=== PATIENT | female | born 1950 | race American Indian/Alaskan Native ===

== ENCOUNTER 2016-05-08 15:41 | Emergency (ER) | payer MEDICAID, MEDICARE ==
[~2016-05-08 15:41] MED LIST: ACET65TA OR; ASPI1TAB PO; ASPI81TA3 OR; ATOR1TAB18 PO; CALCCHW12 OR; CALCIUM/VIT D PO; CALCTAB68 PO; FURO20TA2 PO; HUMULIN N SC; INSULANT SC; LASI20TA PO; LEVA750T PO; LEVOSTATIN PO; LYRI75CA PO; METO25TA74 PO; NABU50TA PO; NITR4TASL SL; RAMI25CA PO; TYLE500T53 PO; VITAMIN C PO; VITMTA PO
--- NOTE | 2016-05-08 19:06 | EDDOCDS ---
Physician Documentation [facility] Name: Tigist Croft Age: 65 yrs Sex: Female : 1950 Arrival Date: 05/08/2016 Time: 15:41 Bed 20 Private MD: Ayaan Kirby Disposition: 05/08/16 18:36 Discharged to Home/Self Care. Impression: Hypoglycemia, unspecified. - Condition is Stable. - Discharge Instructions: Hypoglycemia. - Medication Reconciliation, Local Pharmacy Hours form. - Follow up: Ayaan Kirby MD; When: 2 - 3 days; Reason: Recheck today's complaints, Continuance of care. - Problem is an acute exacerbation. - Symptoms are resolved. Historical: - Allergies: no known allergies; - Home Meds: 1. aspirin 81 mg Oral TbEC 1 tab once daily 2. atorvastatin 80 mg oral tab 1 tab once daily 3. Calcarb 600 With Vitamin D 600 mg(1,500mg) -200 unit Oral tab twice a day 4. Lantus 12 units Sub-Q soln daily (Last dose: 05/08/2016 06:00) 5. Lasix 20 mg Oral tab as needed (Last dose: 05/01/2016) 6. multivitamin Oral cap 1 tab daily 7. nabumetone 500 mg oral tab 1 tab 2 times per day 8. ramipril 2.5 mg Oral cap 1 cap once daily 9. Toprol XL 25 mg Oral Tb24 1 tab once daily 10. gabapentin 100 mg Oral tab three times a day - PMHx: CAD; Diabetes - IDDM: controlled; Diabetic Neuropathy; Hypercholesterolemia; Hypertension; - PSHx: CABG (2001); Carpal Tunnel Repair- Bilateral; Tubal ligation; - Social history: Smoking status: Patient states former smoker of tobacco. No barriers to communication noted. - Family history: Not pertinent. - : The pt / caregiver states he / she is not on anticoagulants. Home medication list is obtained from the patient, [employer] import data. - Exposure Risk Screening:: None identified. Vital Signs: 05/08 16:13 BP 142 / 65; Pulse 61; Resp 16; Temp 97.8; Pulse Ox 99% ; Weight 45.81 kg / 100.99 lbs; [facility] Height 4 ft. 9 in. (144.78 cm); Pain 0/10; 18:50 BP 107 / 56; Pulse 69; Resp 16; Temp 98.2(TE); Pulse Ox 93% on R/A; Pain 0/10; dem1 16:13 Body Mass Index 21.86 (45.81 kg, 144.78 cm) [facility] MDM: 16:03 Fingerstick Blood Sugar Ordered. EDMS 16:17 Accucheck hourly ordered. ke 16:17 Fingerstick Blood Sugar Reviewed. ke 16:18 REGULAR+DIET ordered. EDMS 18:14 Financial registration complete. gjb 18:31 Fingerstick Blood Sugar Ordered. EDMS 18:36 [facility] Payment Agreement was scanned into [employer] and attached to record. [facility] Point of Care Testing: Blood Glucose: 16:17 Blood Glucose: 151 mg/dL; [facility] 18:23 Blood Glucose: 186 mg/dL; [facility] Ranges: Signatures: Dispatcher [employer] [facility] Erwin Shaikh, CHRISTIAN SCIENCE READER Adina LayRN RN [facility] Charlene Johnson The chart was reviewed and I authenticate all verbal orders and agree with the evaluation and treatment provided.Attachments: 18:36 [facility] Payment Agreement gj [employer]
--- NOTE | 2016-05-08 19:06 | EDDOCDS ---
Nurse's Notes [facility] Name: Tigist Croft Age: 65 yrs Sex: Female : 1950 Arrival Date: 05/08/2016 Time: 15:41 Bed 20 Private MD: Ayaan Kirby Diagnosis: Hypoglycemia, unspecified Presentation: 05/08 16:06 Presenting complaint: Patient states: called EMS finding her on kitchen floor [facility] where she states she was trying to get some lunch, takes insulin in early AM. EMS found her to have altered mentation, glucose 64, gave oral glucose then repeat was 38. After one amp of D50 it was 164 and patient mentation has improved. Adult Sepsis Screening: The patient does not have new or worsening altered mentation. Patient's respiratory rate is less than 22. Systolic blood pressure is greater than 100. Patient has a qSOFA score of 0- Negative Sepsis Screen. Suicide/Homicide risk assessment- the patient denies having any suicidal and/or homicidal ideations and does not present with any other emotional, behavioral or mental health complaints. Status: Patient is not a director of rehabilitative services or dependent. Transition of care: patient was not received from another setting of care. Care prior to arrival: Medications administered prior to arrival: D50, oral glucose Saline lock initiated. 16:06 Acuity: ALISA Level 3 [facility] 16:06 Method Of Arrival: Ambulance [facility] Triage Assessment: 16:13 General: Appears in no apparent distress, comfortable, Behavior is appropriate for age, [facility] cooperative. Pain: Denies pain. HIV screening NA for this visit Offered previously. The patient is triaged at the bedside. See Assessment in Nurses Notes section of ED record. Neurological: Level of Consciousness is awake, alert, Oriented to person, place, time. Respiratory: Airway is patent Respiratory effort is even, unlabored, Respiratory pattern is regular, symmetrical, Breath sounds are clear bilaterally. Derm: Skin is pink, warm & dry. Musculoskeletal: Range of motion intact in all extremities. Historical: - Allergies: no known allergies; - Home Meds: 1. aspirin 81 mg Oral TbEC 1 tab once daily 2. atorvastatin 80 mg oral tab 1 tab once daily 3. Calcarb 600 With Vitamin D 600 mg(1,500mg) -200 unit Oral tab twice a day 4. Lantus 12 units Sub-Q soln daily (Last dose: 05/08/2016 06:00) 5. Lasix 20 mg Oral tab as needed (Last dose: 05/01/2016) 6. multivitamin Oral cap 1 tab daily 7. nabumetone 500 mg oral tab 1 tab 2 times per day 8. ramipril 2.5 mg Oral cap 1 cap once daily 9. Toprol XL 25 mg Oral Tb24 1 tab once daily 10. gabapentin 100 mg Oral tab three times a day - PMHx: CAD; Diabetes - IDDM: controlled; Diabetic Neuropathy; Hypercholesterolemia; Hypertension; - PSHx: CABG (2001); Carpal Tunnel Repair- Bilateral; Tubal ligation; - Social history: Smoking status: Patient states former smoker of tobacco. No barriers to communication noted. - Family history: Not pertinent. - : The pt / caregiver states he / she is not on anticoagulants. Home medication list is obtained from the patient, [employer] import data. - Exposure Risk Screening:: None identified. Screenin:15 Screening information is obtained from the patient. Fall risk: No risks identified. [facility] Assistance ADL's: requires no assistance with activities of daily living. Abuse/DV Screen: The patient / caregiver reports he/she is: not in a situation that causes fear, pain or injury. Nutritional screening: No deficits noted. Advance Directives: Currently, there is a health care proxy, Patricia Bentley, sister. There is no active DNR order. There is no living will. There is no Power of Traffic Recorder. home support is adequate. Assessment: 16:15 General: see bedside triage assessment. Warm blankets provided, SIEVE REPAIRER at bedside for [facility] evaluation. 17:30 General: boxed lunch provided, ambulated to bathroom with assist of one, gait steady, [facility] patient reports utilizing cane at home. 18:15 General: denies needs, states anxious to go home, visitor at bedside. [facility] 19:03 General: reviewed discharge instructions with patient who states she just wants to [facility] leave and states she knows whatever she needs to know about hypoglycemia. encouraged patient to return here for any needs and to follow up appropriately, denies further needs. Vital Signs: 16:13 BP 142 / 65; Pulse 61; Resp 16; Temp 97.8; Pulse Ox 99% ; Weight 45.81 kg; Height 4 ft. [facility] 9 in. (144.78 cm); Pain 0/10; 18:50 BP 107 / 56; Pulse 69; Resp 16; Temp 98.2(TE); Pulse Ox 93% on R/A; Pain 0/10; dem1 16:13 Body Mass Index 21.86 (45.81 kg, 144.78 cm) [facility] Vitals: 16:13 Log In Time N/A - ambulance arrival. [facility] ED Course: 15:43 Patient visited by Judi Amaro, Cook Chill Technician. lbd 15:43 Ayaan Kirby MD is Private Physician. lbd 15:43 Patient moved to Waiting lbd 15:44 Patient moved to 20 lbd 16:10 Erwin Shaikh FNP is [facility]. ke 16:10 Patient visited by Erwin Shaikh FNP. ke 16:10 Patient visited by Erwin Shaikh FNP. ke 16:11 Triage Initiated [facility] 16:15 The patient / caregiver is instructed regarding the plan of care and ED course. Patient [facility] has correct armband on for positive identification. Placed in gown. Bed in low position. Call light in reach. Side rails up X2. front desk monitor on. Pulse ox on. NIBP on. 16:15 Maintain field IV. Gauge & site: 20 gauge, left antecubital. cj 16:33 Patient visited by Erwin Shaikh FNP. ke 17:08 Patient visited by Erwin Shaikh FNP. ke 17:44 Patient visited by Erwin Shaikh FNP. ke 18:02 Diet: Patient given regular meal. ct3 18:03 Patient visited by Estela Steele, KRYSTA. ct3 18:34 Patient visited by Erwin Shaikh FNP. ke 18:35 Ayaan Kirby MD is Referral Physician. ke 18:36 [facility] Payment Agreement was scanned into [employer] and attached to record. gjb 18:51 Patient visited by Taj Huerta. dem1 19:03 Discontinued lock intact, bleeding controlled, pressure dressing applied, No [facility] redness/swelling at site. No procedures done that require assistance. Point of Care Testing: Blood Glucose: 16:17 Blood Glucose: 151 mg/dL; cj 18:23 Blood Glucose: 186 mg/dL; [facility] Ranges: Order Results: Lab Order: Fingerstick Blood Sugar; SPEC'M 05/08/16 15:54 Test: BEDSIDE GLUCOSE; Value: 151; Range: 80-115; Abnormal: Above high normal; Units: MG/DL; Status: F Lab Order: Fingerstick Blood Sugar; SPEC'M 05/08/16 16:53 Test: BEDSIDE GLUCOSE; Value: 136; Range: 80-115; Abnormal: Above high normal; Units: MG/DL; Status: F Lab Order: Fingerstick Blood Sugar; SPEC'M 05/08/16 18:22 Test: BEDSIDE GLUCOSE; Value: 186; Range: 80-115; Abnormal: Above high normal; Units: MG/DL; Status: F Outcome: 18:36 Discharge ordered by Provider. eusebio 19:03 Discharge Assessment: Patient awake, alert and oriented x 3. No cognitive and/or [facility] functional deficits noted. Patient verbalized understanding of disposition instructions. patient administered narcotics - no. The following High Risk Discharge criteria are identified: None. Discharged to home ambulatory. Condition: good Condition: stable Condition: improved. Discharge instructions given to patient, Instructed on discharge instructions, follow up and referral plans. medication usage, Demonstrated understanding of instructions, Pt was receptive of discharge instructions/ teaching. No special radiology studies were completed. Property :Personal belongings accompany Pt. 19:05 Patient left the ED. [facility] Signatures: Judi Amaro, Cook Chill Technician Unit lbd Erwin Shaikh, PROFESSOR OF GENETICS PROFESSOR OF GENETICS Estela Alexander, CHEMICAL MAKER CHEMICAL MAKER ct3 Taj Huerta dem1 Adina Baires,DERIK RN [facility] Charlene Johnson MTDD
--- NOTE | 2016-05-10 20:06 | EDDOCDS ---
Physician Documentation [facility] Name: Tigist Croft Age: 65 yrs Sex: Female : 1950 Arrival Date: 05/08/2016 Time: 15:41 Bed 20 Private MD: Ayaan Kirby Disposition: 05/08/16 18:36 Discharged to Home/Self Care. Impression: Hypoglycemia, unspecified. - Condition is Stable. - Discharge Instructions: Hypoglycemia. - Medication Reconciliation, Local Pharmacy Hours form. - Follow up: Ayaan Kirby MD; When: 2 - 3 days; Reason: Recheck today's complaints, Continuance of care. - Problem is an acute exacerbation. - Symptoms are resolved. Historical: - Allergies: no known allergies; - Home Meds: 1. aspirin 81 mg Oral TbEC 1 tab once daily 2. atorvastatin 80 mg oral tab 1 tab once daily 3. Calcarb 600 With Vitamin D 600 mg(1,500mg) -200 unit Oral tab twice a day 4. Lantus 12 units Sub-Q soln daily (Last dose: 05/08/2016 06:00) 5. Lasix 20 mg Oral tab as needed (Last dose: 05/01/2016) 6. multivitamin Oral cap 1 tab daily 7. nabumetone 500 mg oral tab 1 tab 2 times per day 8. ramipril 2.5 mg Oral cap 1 cap once daily 9. Toprol XL 25 mg Oral Tb24 1 tab once daily 10. gabapentin 100 mg Oral tab three times a day - PMHx: CAD; Diabetes - IDDM: controlled; Diabetic Neuropathy; Hypercholesterolemia; Hypertension; - PSHx: CABG (2001); Carpal Tunnel Repair- Bilateral; Tubal ligation; - Social history: Smoking status: Patient states former smoker of tobacco. No barriers to communication noted. - Family history: Not pertinent. - : The pt / caregiver states he / she is not on anticoagulants. Home medication list is obtained from the patient, [employer] import data. - Exposure Risk Screening:: None identified. Vital Signs: 05/08 16:13 BP 142 / 65; Pulse 61; Resp 16; Temp 97.8; Pulse Ox 99% ; Weight 45.81 kg / 100.99 lbs; [facility] Height 4 ft. 9 in. (144.78 cm); Pain 0/10; 18:50 BP 107 / 56; Pulse 69; Resp 16; Temp 98.2(TE); Pulse Ox 93% on R/A; Pain 0/10; dem1 16:13 Body Mass Index 21.86 (45.81 kg, 144.78 cm) [facility] MDM: 16:03 Fingerstick Blood Sugar Ordered. EDMS 16:17 Accucheck hourly ordered. ke 16:17 Fingerstick Blood Sugar Reviewed. 16:18 REGULAR+DIET ordered. EDMS 18:14 Financial registration complete. [facility] 18:31 Fingerstick Blood Sugar Ordered. EDMS 18:36 [facility] Payment Agreement was scanned into [employer] and attached to record. [facility] 05/09 11:04 T-Sheet-- Draft Copy was scanned into [employer] and attached to record. Point of Care Testing: Blood Glucose: 05/08 16:17 Blood Glucose: 151 mg/dL; [facility] 18:23 Blood Glucose: 186 mg/dL; [facility] Ranges: Signatures: Dispatcher [employer] [facility] Sasha Bowens, Reg Reg Erwin Patel, INDUSTRIAL ROOF PLUMBER INDUSTRIAL ROOF PLUMBER Adina Hairston,RN RN [facility] Charlene Johnson The chart was reviewed and I authenticate all verbal orders and agree with the evaluation and treatment provided.Attachments: 18:36 [facility] Payment Agreement [facility] 05/09 11:04 T-Sheet-- Draft Copy gb Chart Complete MTDD
--- NOTE | 2016-05-10 20:06 | EDDOCDS ---
Nurse's Notes [facility] Name: Tigist Croft Age: 65 yrs Sex: Female : 1950 Arrival Date: 05/08/2016 Time: 15:41 Bed 20 Private MD: Ayaan Kirby Diagnosis: Hypoglycemia, unspecified Presentation: 05/08 16:06 Presenting complaint: Patient states: called EMS finding her on kitchen floor [facility] where she states she was trying to get some lunch, takes insulin in early AM. EMS found her to have altered mentation, glucose 64, gave oral glucose then repeat was 38. After one amp of D50 it was 164 and patient mentation has improved. Adult Sepsis Screening: The patient does not have new or worsening altered mentation. Patient's respiratory rate is less than 22. Systolic blood pressure is greater than 100. Patient has a qSOFA score of 0- Negative Sepsis Screen. Suicide/Homicide risk assessment- the patient denies having any suicidal and/or homicidal ideations and does not present with any other emotional, behavioral or mental health complaints. Status: Patient is not a multimedia services manager or dependent. Transition of care: patient was not received from another setting of care. Care prior to arrival: Medications administered prior to arrival: D50, oral glucose Saline lock initiated. 16:06 Acuity: ALISA Level 3 [facility] 16:06 Method Of Arrival: Ambulance [facility] Triage Assessment: 16:13 General: Appears in no apparent distress, comfortable, Behavior is appropriate for age, [facility] cooperative. Pain: Denies pain. HIV screening NA for this visit Offered previously. The patient is triaged at the bedside. See Assessment in Nurses Notes section of ED record. Neurological: Level of Consciousness is awake, alert, Oriented to person, place, time. Respiratory: Airway is patent Respiratory effort is even, unlabored, Respiratory pattern is regular, symmetrical, Breath sounds are clear bilaterally. Derm: Skin is pink, warm & dry. Musculoskeletal: Range of motion intact in all extremities. Historical: - Allergies: no known allergies; - Home Meds: 1. aspirin 81 mg Oral TbEC 1 tab once daily 2. atorvastatin 80 mg oral tab 1 tab once daily 3. Calcarb 600 With Vitamin D 600 mg(1,500mg) -200 unit Oral tab twice a day 4. Lantus 12 units Sub-Q soln daily (Last dose: 05/08/2016 06:00) 5. Lasix 20 mg Oral tab as needed (Last dose: 05/01/2016) 6. multivitamin Oral cap 1 tab daily 7. nabumetone 500 mg oral tab 1 tab 2 times per day 8. ramipril 2.5 mg Oral cap 1 cap once daily 9. Toprol XL 25 mg Oral Tb24 1 tab once daily 10. gabapentin 100 mg Oral tab three times a day - PMHx: CAD; Diabetes - IDDM: controlled; Diabetic Neuropathy; Hypercholesterolemia; Hypertension; - PSHx: CABG (2001); Carpal Tunnel Repair- Bilateral; Tubal ligation; - Social history: Smoking status: Patient states former smoker of tobacco. No barriers to communication noted. - Family history: Not pertinent. - : The pt / caregiver states he / she is not on anticoagulants. Home medication list is obtained from the patient, [employer] import data. - Exposure Risk Screening:: None identified. Screenin:15 Screening information is obtained from the patient. Fall risk: No risks identified. [facility] Assistance ADL's: requires no assistance with activities of daily living. Abuse/DV Screen: The patient / caregiver reports he/she is: not in a situation that causes fear, pain or injury. Nutritional screening: No deficits noted. Advance Directives: Currently, there is a health care proxy, Patricia Bentley, sister. There is no active DNR order. There is no living will. There is no Power of Music Education Adjunct Professor. home support is adequate. Assessment: 16:15 General: see bedside triage assessment. Warm blankets provided, MIXING SUPERVISOR at bedside for [facility] evaluation. 17:30 General: boxed lunch provided, ambulated to bathroom with assist of one, gait steady, [facility] patient reports utilizing cane at home. 18:15 General: denies needs, states anxious to go home, visitor at bedside. [facility] 19:03 General: reviewed discharge instructions with patient who states she just wants to [facility] leave and states she knows whatever she needs to know about hypoglycemia. encouraged patient to return here for any needs and to follow up appropriately, denies further needs. Vital Signs: 16:13 BP 142 / 65; Pulse 61; Resp 16; Temp 97.8; Pulse Ox 99% ; Weight 45.81 kg; Height 4 ft. [facility] 9 in. (144.78 cm); Pain 0/10; 18:50 BP 107 / 56; Pulse 69; Resp 16; Temp 98.2(TE); Pulse Ox 93% on R/A; Pain 0/10; dem1 16:13 Body Mass Index 21.86 (45.81 kg, 144.78 cm) [facility] Vitals: 16:13 Log In Time N/A - ambulance arrival. [facility] ED Course: 15:43 Patient visited by Judi Amaro, Black Leather Buffer. lbd 15:43 Ayaan Kirby MD is Private Physician. lbd 15:43 Patient moved to Waiting lbd 15:44 Patient moved to 20 lbd 16:10 Erwin Shaikh FNP is [facility]. ke 16:10 Patient visited by Erwin Shaikh FNP. ke 16:10 Patient visited by Erwin Shaikh FNP. ke 16:11 Triage Initiated [facility] 16:15 The patient / caregiver is instructed regarding the plan of care and ED course. Patient [facility] has correct armband on for positive identification. Placed in gown. Bed in low position. Call light in reach. Side rails up X2. bus driver/monitor on. Pulse ox on. NIBP on. 16:15 Maintain field IV. Gauge & site: 20 gauge, left antecubital. cj 16:33 Patient visited by Erwin Shaikh FNP. ke 17:08 Patient visited by Erwin Shaikh FNP. ke 17:44 Patient visited by Erwin Shaikh FNP. ke 18:02 Diet: Patient given regular meal. ct3 18:03 Patient visited by Estela Steele, KRYSTA. ct3 18:34 Patient visited by Erwin Shaikh FNP. ke 18:35 Ayaan Kirby MD is Referral Physician. ke 18:36 [facility] Payment Agreement was scanned into [employer] and attached to record. gjb 18:51 Patient visited by Taj Huerta. dem1 19:03 Discontinued lock intact, bleeding controlled, pressure dressing applied, No [facility] redness/swelling at site. No procedures done that require assistance. 05/09 11:04 T-Sheet-- Draft Copy was scanned into [employer] and attached to record. Point of Care Testing: Blood Glucose: 01/17 16:17 Blood Glucose: 151 mg/dL; [facility] 18:23 Blood Glucose: 186 mg/dL; [facility] Ranges: Order Results: Lab Order: Fingerstick Blood Sugar; SPEC'M 05/08/16 15:54 Test: BEDSIDE GLUCOSE; Value: 151; Range: 80-115; Abnormal: Above high normal; Units: MG/DL; Status: F Lab Order: Fingerstick Blood Sugar; SPEC'M 05/08/16 16:53 Test: BEDSIDE GLUCOSE; Value: 136; Range: 80-115; Abnormal: Above high normal; Units: MG/DL; Status: F Lab Order: Fingerstick Blood Sugar; SPEC'M 05/08/16 18:22 Test: BEDSIDE GLUCOSE; Value: 186; Range: 80-115; Abnormal: Above high normal; Units: MG/DL; Status: F Outcome: 18:36 Discharge ordered by Provider. 19:03 Discharge Assessment: Patient awake, alert and oriented x 3. No cognitive and/or [facility] functional deficits noted. Patient verbalized understanding of disposition instructions. patient administered narcotics - no. The following High Risk Discharge criteria are identified: None. Discharged to home ambulatory. Condition: good Condition: stable Condition: improved. Discharge instructions given to patient, Instructed on discharge instructions, follow up and referral plans. medication usage, Demonstrated understanding of instructions, Pt was receptive of discharge instructions/ teaching. No special radiology studies were completed. Property :Personal belongings accompany Pt. 19:05 Patient left the ED. [facility] Signatures: Judi Amaro, Black Leather Buffer Unit lbd Sasha Bowens, Pardeep Reg gb Erwin Shaikh, INFORMATION SYSTEMS MANAGER INFORMATION SYSTEMS MANAGER Estela Alexander, UPHOLSTERER OUTSIDE UPHOLSTERER OUTSIDE ct3 Taj Huerta dem1 Adina Baires,DERIK RN [facility] Charlene Johnson Chart Complete MTDD
--- NOTE | 2016-05-10 20:06 | EDDOCDS ---
Physician Documentation [facility] Name: Tigist Croft Age: 65 yrs Sex: Female : 1950 Arrival Date: 05/08/2016 Time: 15:41 Bed 20 Private MD: Ayaan Kirby Disposition: 05/08/16 18:36 Discharged to Home/Self Care. Impression: Hypoglycemia, unspecified. - Condition is Stable. - Discharge Instructions: Hypoglycemia. - Medication Reconciliation, Local Pharmacy Hours form. - Follow up: Ayaan Kirby MD; When: 2 - 3 days; Reason: Recheck today's complaints, Continuance of care. - Problem is an acute exacerbation. - Symptoms are resolved. Historical: - Allergies: no known allergies; - Home Meds: 1. aspirin 81 mg Oral TbEC 1 tab once daily 2. atorvastatin 80 mg oral tab 1 tab once daily 3. Calcarb 600 With Vitamin D 600 mg(1,500mg) -200 unit Oral tab twice a day 4. Lantus 12 units Sub-Q soln daily (Last dose: 05/08/2016 06:00) 5. Lasix 20 mg Oral tab as needed (Last dose: 05/01/2016) 6. multivitamin Oral cap 1 tab daily 7. nabumetone 500 mg oral tab 1 tab 2 times per day 8. ramipril 2.5 mg Oral cap 1 cap once daily 9. Toprol XL 25 mg Oral Tb24 1 tab once daily 10. gabapentin 100 mg Oral tab three times a day - PMHx: CAD; Diabetes - IDDM: controlled; Diabetic Neuropathy; Hypercholesterolemia; Hypertension; - PSHx: CABG (2001); Carpal Tunnel Repair- Bilateral; Tubal ligation; - Social history: Smoking status: Patient states former smoker of tobacco. No barriers to communication noted. - Family history: Not pertinent. - : The pt / caregiver states he / she is not on anticoagulants. Home medication list is obtained from the patient, [employer] import data. - Exposure Risk Screening:: None identified. Vital Signs: 05/08 16:13 BP 142 / 65; Pulse 61; Resp 16; Temp 97.8; Pulse Ox 99% ; Weight 45.81 kg / 100.99 lbs; [facility] Height 4 ft. 9 in. (144.78 cm); Pain 0/10; 18:50 BP 107 / 56; Pulse 69; Resp 16; Temp 98.2(TE); Pulse Ox 93% on R/A; Pain 0/10; dem1 16:13 Body Mass Index 21.86 (45.81 kg, 144.78 cm) [facility] MDM: 16:03 Fingerstick Blood Sugar Ordered. EDMS 16:17 Accucheck hourly ordered. ke 16:17 Fingerstick Blood Sugar Reviewed. 16:18 REGULAR+DIET ordered. EDMS 18:14 Financial registration complete. [facility] 18:31 Fingerstick Blood Sugar Ordered. EDMS 18:36 [facility] Payment Agreement was scanned into [employer] and attached to record. [facility] 05/09 11:04 T-Sheet-- Draft Copy was scanned into [employer] and attached to record. Point of Care Testing: Blood Glucose: 05/08 16:17 Blood Glucose: 151 mg/dL; [facility] 18:23 Blood Glucose: 186 mg/dL; [facility] Ranges: Signatures: Dispatcher [employer] [facility] Sasha Bowens, Reg Reg Erwin Patel, SCIENTIFIC INVESTIGATOR SCIENTIFIC INVESTIGATOR Adina Hairston,RN RN [facility] Charlene Johnson The chart was reviewed and I authenticate all verbal orders and agree with the evaluation and treatment provided.Attachments: 18:36 [facility] Payment Agreement [facility] 05/09 11:04 T-Sheet-- Draft Copy gb Chart Complete MTDD
== END 2016-05-08 19:05 | disposition home or self-care (01) ==
LOC: M ED 15:41
DX: E11.649 Type 2 diabetes mellitus with hypoglycemia without coma (principal); E11.42 Type 2 diabetes mellitus with diabetic polyneuropathy; I25.10 Atherosclerotic heart disease of native coronary artery without angina pectoris; E78.00 Pure hypercholesterolemia, unspecified; I10 Essential (primary) hypertension; Z87.891 Personal history of nicotine dependence; Z79.82 Long term (current) use of aspirin; Z79.4 Long term (current) use of insulin; Z79.899 Other long term (current) drug therapy

== ENCOUNTER → 2016-06-21 | Outpatient (CLI) | payer MEDICARE, MEDICAID ==
[2016-06-21 08:08] LABS: ALBUMIN 3.3 GM/DL (3.2-5.2); ALBUMIN/GLOBULIN RATIO 1.18 (1.00-1.93); ALKALINE PHOSPHATASE 82 U/L (45-117); ALT/SGPT 27 U/L (12-78); ANION GAP 6 MEQ/L (8-16); AST/SGOT 19 U/L (15-37); BILIRUBIN,TOTAL 0.6 MG/DL (0.2-1.0); BLOOD UREA NITROGEN 26 MG/DL (7-18); CALCIUM LEVEL 8.7 MG/DL (8.8-10.2); CARBON DIOXIDE LEVEL 29 MEQ/L (21-32); CHLORIDE LEVEL 105 MEQ/L (98-107); CHOLESTEROL LEVEL 134 MG/DL (<200); CREATININE FOR GFR 0.97 MG/DL (0.55-1.02); GLOMERULAR FILTRATION RATE > 60.0 (>45); GLUCOSE, FASTING 306 MG/DL (80-110); POTASSIUM SERUM 4.8 MEQ/L (3.5-5.1); SODIUM LEVEL 140 MEQ/L (136-145); TOTAL PROTEIN 6.1 GM/DL (6.4-8.2); TRIGLYCERIDES LEVEL 61 MG/DL (<150)
== END ==
LOC: M LAB 07:00
PROVIDERS: ATTEND Nurse Practitioner Family
DX: E11.49 Type 2 diabetes mellitus with other diabetic neurological complication (principal); E78.5 Hyperlipidemia, unspecified

== ENCOUNTER → 2016-09-24 | Outpatient (CLI) | payer MEDICARE, MEDICAID ==
[2016-09-24 07:18] LABS: ALBUMIN 2.8 GM/DL (3.2-5.2); ALBUMIN/GLOBULIN RATIO 0.78 (1.00-1.93); ALKALINE PHOSPHATASE 101 U/L (45-117); ALT/SGPT 25 U/L (12-78); ANION GAP 6 MEQ/L (8-16); AST/SGOT 18 U/L (15-37); BILIRUBIN,TOTAL 0.5 MG/DL (0.2-1.0); BLOOD UREA NITROGEN 19 MG/DL (7-18); CARBON DIOXIDE LEVEL 28 MEQ/L (21-32); CHLORIDE LEVEL 110 MEQ/L (98-107); CREATININE FOR GFR 0.81 MG/DL (0.55-1.02); GLOMERULAR FILTRATION RATE > 60.0 (>45); GLUCOSE, FASTING 101 MG/DL (80-110); POTASSIUM SERUM 4.7 MEQ/L (3.5-5.1); SODIUM LEVEL 144 MEQ/L (136-145); TOTAL PROTEIN 6.4 GM/DL (6.4-8.2)
== END ==
LOC: M LAB 06:09
PROVIDERS: ATTEND Nurse Practitioner Family
DX: E11.40 Type 2 diabetes mellitus with diabetic neuropathy, unspecified (principal); E55.9 Vitamin D deficiency, unspecified

== ENCOUNTER → 2016-12-25 | Outpatient (REF) | payer MEDICARE, MEDICAID ==
[~2016-12-25] MED LIST changes: -ATOR1TAB18 PO; +ATOR80TA59 PO; +GABA-279 PO; +LASI40TA PO; -LEVA750T PO; +LEVA750T7 PO; +METO1TAB32 PO; -METO25TA74 PO; +NABU500T PO; -NABU50TA PO; +PLAV1TAB2 PO
[2016-12-25 12:23] LABS: ALBUMIN 3.2 GM/DL (3.2-5.2); ALBUMIN/GLOBULIN RATIO 0.97 (1.00-1.93); ALKALINE PHOSPHATASE 86 U/L (45-117); ALT/SGPT 37 U/L (12-78); ANION GAP 8 MEQ/L (8-16); AST/SGOT 22 U/L (15-37); BILIRUBIN,TOTAL 0.5 MG/DL (0.2-1.0); BLOOD UREA NITROGEN 25 MG/DL (7-18); CALCIUM LEVEL 8.7 MG/DL (8.8-10.2); CARBON DIOXIDE LEVEL 31 MEQ/L (21-32); CHLORIDE LEVEL 107 MEQ/L (98-107); CREATININE FOR GFR 0.92 MG/DL (0.55-1.02); GLOMERULAR FILTRATION RATE > 60.0 (>45); GLUCOSE, FASTING 51 MG/DL (80-110); POTASSIUM SERUM 3.8 MEQ/L (3.5-5.1); SODIUM LEVEL 146 MEQ/L (136-145); TOTAL PROTEIN 6.5 GM/DL (6.4-8.2)
== END ==
LOC: M SFHCPLAZ 06:30
PROVIDERS: ATTEND Nurse Practitioner Family
DX: I15.9 Secondary hypertension, unspecified (principal); E11.49 Type 2 diabetes mellitus with other diabetic neurological complication

== ENCOUNTER 2017-03-11 08:41 | Day surgery (SDC) | payer MEDICARE, MEDICAID ==
[~2017-03-11] VITALS: Ht 144.8 cm; Wt 47.2 kg
[~2017-03-11 08:41] MED LIST changes: +LIDOCAINE 3.5 % 1ML OPHTH TOPICAL GEL OU ONE
[2017-03-11] MEDS ORDERED: LR 1,000 ML IV ONE (09:00)
[2017-03-11] MEDS ORDERED: DEXTROSE 50% 50 ML SYRINGE As Ordered ONE (09:42)
[2017-03-11] MEDS ORDERED: DEXTROSE 50% 50 ML VIAL IV ONE (10:00)
[2017-03-11] MEDS ORDERED: MIDAZOLAM INJ 2 MG/2 ML VIAL (J2250) As Ordered ONE (10:03)
[2017-03-11] MEDS ORDERED: fentaNYL 100 MCG/2 ML INJECTION (J3010) As Ordered ONE (10:03)
[2017-03-11] MEDS ORDERED: D5W/0.2% SODIUM CHLORIDE 1,000 ML IV SCH (10:30)
[2017-03-11] MEDS ORDERED: ERYTHROMYCIN OPHTH OINT As Ordered ONE (10:39)
[2017-03-11] MEDS ORDERED: POVIDONE-IODINE 5% OPHTH PREP SOL 30ML As Ordered ONE (10:39)
[2017-03-11] MEDS ORDERED: TETRACAINE 0.5% OPHTH SOLN 4ML As Ordered ONE (10:39)
[2017-03-11] MEDS ORDERED: LIDOCAINE 2% W/EPIN INJ 20ML **PRES FREE As Ordered ONE (10:40)
[2017-03-11] MEDS ORDERED: CEFAZOLIN SOD 1 GM in APPROPRIATE DILUENT 1 EA IV ONE (11:00)
[2017-03-11 14:23] VITALS: BP 121/87
--- NOTE | 2017-03-20 19:11 | RO ---
DATE OF PROCEDURE: 03/11/2017 PREOPERATIVE DIAGNOSIS: Bilateral upper and lower lid blepharochalasis visually significant. POSTOPERATIVE DIAGNOSIS: Bilateral upper and lower lid blepharochalasis visually significant. PROCEDURE: Bilateral upper and lower blepharoplasty. SURGEON: Man Ryan DO FACS INFORMATION TECHNOLOGY PROFESSOR: ANESTHESIA: Local 2% lidocaine with epinephrine and sedation monitoring by anesthesia team. INDICATION: Visually significant bilateral upper and lower lid blepharochalasis. ESTIMATED BLOOD LOSS: Minimal. COMPLICATIONS: None. PROCEDURE IN DETAIL: After obtaining informed consent, the patient was taken to the operating room. A time out was performed confirming this was the patient and that we were doing a bilateral upper and lower lid blepharoplasty. The patient was prepped and draped in a sterile fashion. The upper and lower lids were marked for a satisfactory excision of skin and subcutaneous tissue with the orbicularis muscle strip. After the marking was confirmed and measured, lidocaine 2% epinephrine was infused into the lids for anesthesia. When adequate anesthesia had been obtained, a cutting Bovie was used to excise the right upper lid and subcutaneous tissues. Cautery was applied as needed for hemostasis. Attention was drawn to the left upper lid and an identical procedure was performed. Next, hemostasis was confirmed and #6-0 Nylon was used in a running fashion to close the wounds in the upper lids. Lid position was found to be satisfactory. Next, the right lower lid skin was infiltrated with lidocaine and 2% epinephrine and then the left. The cutting Bovie was used to remove the skin. Underlying subcutaneous tissue and a small orbicularis muscle strip. The amount of skin was not enough to cause a postoperative ectropion. The skin was closed with running 6-0 Nylon suture after the identical procedure performed in the lid. Erythromycin ointment was applied to the wounds and in both eyes. The patient returned to the recovery in excellent condition. Will followup 2 days after procedure.
== END 2017-03-11 14:38 | disposition home or self-care (01) ==
LOC: M SDC 08:41
PROVIDERS: ATTEND Ophthalmology
DX: H02.31 Blepharochalasis right upper eyelid (principal); H02.32 Blepharochalasis right lower eyelid; H02.34 Blepharochalasis left upper eyelid; H02.35 Blepharochalasis left lower eyelid; E11.40 Type 2 diabetes mellitus with diabetic neuropathy, unspecified; E11.3599 Type 2 diabetes mellitus with proliferative diabetic retinopathy without macular edema, unspecified eye; E78.5 Hyperlipidemia, unspecified; M85.80 Other specified disorders of bone density and structure, unspecified site; M06.9 Rheumatoid arthritis, unspecified; I25.10 Atherosclerotic heart disease of native coronary artery without angina pectoris; I50.42 Chronic combined systolic (congestive) and diastolic (congestive) heart failure; R94.31 Abnormal electrocardiogram [ECG] [EKG]; I34.0 Nonrheumatic mitral (valve) insufficiency; I73.9 Peripheral vascular disease, unspecified; I25.2 Old myocardial infarction; I11.0 Hypertensive heart disease with heart failure; F17.200 Nicotine dependence, unspecified, uncomplicated; R29.898 Other symptoms and signs involving the musculoskeletal system; M81.0 Age-related osteoporosis without current pathological fracture; Z88.8 Allergy status to other drugs, medicaments and biological substances; Z79.899 Other long term (current) drug therapy; Z79.84 Long term (current) use of oral hypoglycemic drugs; Z79.4 Long term (current) use of insulin; Z95.1 Presence of aortocoronary bypass graft; Z98.51 Tubal ligation status; Z78.0 Asymptomatic menopausal state; Z96.1 Presence of intraocular lens
CPT/HCPCS: 15821; 15823; 88302; J0690; J2250; J3010

== ENCOUNTER → 2017-03-26 | Outpatient (CLI) | payer MEDICARE, MEDICAID ==
[~2017-03-26] MED LIST changes: -LIDOCAINE 3.5 % 1ML OPHTH TOPICAL GEL OU ONE
[2017-03-26 08:02] LABS: ALBUMIN 3.2 GM/DL (3.2-5.2); ALBUMIN/GLOBULIN RATIO 0.97 (1.00-1.93); ALKALINE PHOSPHATASE 89 U/L (45-117); ALT/SGPT 31 U/L (12-78); ANION GAP 6 MEQ/L (8-16); AST/SGOT 21 U/L (7-37); BILIRUBIN,TOTAL 0.3 MG/DL (0.2-1.0); BLOOD UREA NITROGEN 20 MG/DL (7-18); CALCIUM LEVEL 8.9 MG/DL (8.8-10.2); CARBON DIOXIDE LEVEL 30 MEQ/L (21-32); CHLORIDE LEVEL 108 MEQ/L (98-107); GLOMERULAR FILTRATION RATE > 60.0 (>45); GLUCOSE, FASTING 72 MG/DL (80-110); POTASSIUM SERUM 4.4 MEQ/L (3.5-5.1); SODIUM LEVEL 144 MEQ/L (136-145); TOTAL PROTEIN 6.5 GM/DL (6.4-8.2)
== END ==
LOC: M LAB 06:57
PROVIDERS: ATTEND Nurse Practitioner Family
DX: E11.40 Type 2 diabetes mellitus with diabetic neuropathy, unspecified (principal)

== ENCOUNTER → 2017-04-02 | Outpatient (REF) | payer MEDICARE, MEDICAID | LOC: M SFHCWAGY 09:50 | PROVIDERS: ATTEND Nurse Practitioner Family | DX: Z12.4 Encounter for screening for malignant neoplasm of cervix (principal) ==

== ENCOUNTER → 2017-04-02 | Outpatient (CLI) | payer MEDICARE, MEDICAID ==
--- NOTE | 2017-04-03 15:04 | DEXA ---
AP SPINE L1 - L4 1.092 -0.8 0.8 LT FEMUR TOTAL 0.621 -3.1 -1.8 RT FEMUR TOTAL 0.661 -2.7 -1.5 TOTAL BODY TOTAL OTHER COMMENTS: Normal bone densitometry of the spine. There is osteoporosis of the hips. FOLLOW-UP: Recommendation for the next bone density exam: 2 years. HUGO
== END ==
LOC: M WHC 09:52
PROVIDERS: ATTEND Nurse Practitioner Family
DX: M85.80 Other specified disorders of bone density and structure, unspecified site (principal); Z78.0 Asymptomatic menopausal state

== ENCOUNTER → 2017-04-02 | Outpatient (CLI) | payer MEDICARE, MEDICAID ==
--- NOTE | 2017-04-02 13:34 | REPMRS ---
Patient History The patient states she had a clinical breast exam in 03/2017. Patient is postmenopausal and is nulliparous. Family history of colorectal cancer in maternal aunt at age 50 or over and breast cancer in paternal aunt at age 50 or over. Digital Woman Screen Mammo: April 02, 2017 - Exam #: [id number] Bilateral CC and MLO view(s) were taken. Technologist: Poornima Joseph, Technologist Prior study comparison: March 29, 2016, digital woman screen mammo performed at [facility]. March 28, 2015, digital woman screen mammo performed at [facility]. April 20, 2014, digital woman screen mammo performed at [facility]. FINDINGS: The breast tissue is extremely dense which could obscure a lesion on mammography. There is an extremely dense symmetrical pattern of residual fibroglandular tissue. There has been no change in the appearance of the mammogram from the previous studies. There is no interval development of dominant mass, archetectural distortion, or microcalcific cluster suggestive of malignancy. ASSESSMENT: BI-RADS/ACR category 2 mammogram. Benign finding(s). Recommendation Routine screening mammogram of both breasts in 1 year (for women over age 40). This mammogram was interpreted with the aid of an FDA-approved computer-aided dectection system. Electronically Signed By: Kristian Wyman MD 04/02/17 [id number]
== END ==
LOC: M WHC 09:11
PROVIDERS: ATTEND Family Medicine
DX: Z12.31 Encounter for screening mammogram for malignant neoplasm of breast (principal); Z78.0 Asymptomatic menopausal state; M85.80 Other specified disorders of bone density and structure, unspecified site; Z92.89 Personal history of other medical treatment

== ENCOUNTER → 2017-05-29 | Outpatient (REF) | payer MEDICARE, MEDICAID ==
[2017-05-29 15:33] LABS: HEMATOCRIT 33.2 % (36.0-47.0); HEMOGLOBIN 10.9 g/dl (12.0-16.0); MEAN CORPUSCULAR HEMOGLOBIN 30.4 pg (27.0-33.0); MEAN CORPUSCULAR HGB CONC 32.8 g/dl (32.0-36.5); MEAN CORPUSCULAR VOLUME 92.5 fl (80.0-96.0); PLATELET COUNT, AUTOMATED 348 10^3/uL (150-450); RED BLOOD COUNT 3.59 10^6/uL (4.00-5.40); RED CELL DISTRIBUTION WIDTH 15.6 % (11.5-14.5); WHITE BLOOD COUNT 25.6 10^3/uL (4.0-10.0)
[2017-05-29 15:55] LABS: FREE T4 1.14 NG/DL (0.76-1.46); THYROID STIMULATING HORMONE 0.777 uIU/ML (0.358-3.740)
[2017-05-29 16:28] LABS: ADD MANUAL DIFFER YES; DIFF SLIDE NUMBER 234; POSITIVE DIFF POS FLAG
[2017-05-29 16:30] LABS: BANDS 5 % (< 11); BASOPHILS 1 % (0-4); LYMPHOCYTES 5 % (16-52); MONOCYTES 5 % (0-8); NEUTROPHILS 84 % (35-75)
[2017-05-29 16:31] LABS: PLATELET ESTIMATE NORMAL (NORMAL)
== END ==
LOC: M SFHCPLAZ 13:00
DX: R68.83 Chills (without fever) (principal)
CPT/HCPCS: 84443

== ENCOUNTER → 2017-06-04 | Outpatient (REF) | payer MEDICARE, MEDICAID | LOC: M SFHCPLAZ 16:59 | DX: N30.00 Acute cystitis without hematuria (principal) | CPT/HCPCS: 87086 ==

== ENCOUNTER → 2017-06-27 | Outpatient (CLI) | payer MEDICARE, MEDICAID | LOC: M RAD 12:19 | DX: M54.2 Cervicalgia (principal) | CPT/HCPCS: 72052 ==

== ENCOUNTER → 2017-07-05 | Outpatient (REF) | payer MEDICARE ==
[2017-07-05 16:07] LABS: ALBUMIN 3.6 GM/DL (3.2-5.2); ALBUMIN/GLOBULIN RATIO 1.06 (1.00-1.93); ALKALINE PHOSPHATASE 87 U/L (45-117); ALT/SGPT 26 U/L (12-78); ANION GAP 6 MEQ/L (8-16); AST/SGOT 20 U/L (7-37); BILIRUBIN,TOTAL 0.3 MG/DL (0.2-1.0); BLOOD UREA NITROGEN 30 MG/DL (7-18); CALCIUM LEVEL 8.6 MG/DL (8.8-10.2); CARBON DIOXIDE LEVEL 28 MEQ/L (21-32); CHLORIDE LEVEL 106 MEQ/L (98-107); CHOLESTEROL LEVEL 160 MG/DL (<200); CHOLESTEROL RISK RATIO 2.962 (<5); CREATININE FOR GFR 1.03 MG/DL (0.55-1.30); GLOMERULAR FILTRATION RATE 57.1 (>45); GLUCOSE, FASTING 188 MG/DL (70-100); HDL CHOLESTEROL 54 MG/DL (>40); LDL CHOLESTEROL 82.2 MG/DL (<100); NON-HDL-C 106 MG/DL; POTASSIUM SERUM 5.1 MEQ/L (3.5-5.1); SODIUM LEVEL 140 MEQ/L (136-145); TRIGLYCERIDES LEVEL 119 MG/DL (<150)
[2017-07-05 16:12] LABS: BASO # 0.1 10^3/uL (0.0-0.2); BASO % 1.2 % (0.0-1.0); EOS # 0.1 10^3/uL (0.0-0.50); EOS % 2.1 % (0.0-3.0); HEMATOCRIT 37.4 % (36.0-47.0); HEMOGLOBIN 11.9 g/dl (12.0-16.0); IMMATURE GRANULOCYTE % 0.3 % (0-3.0); LYMPH % 17.7 % (24.0-44.0); MEAN CORPUSCULAR HEMOGLOBIN 30.7 pg (27.0-33.0); MEAN CORPUSCULAR HGB CONC 31.8 g/dl (32.0-36.5); MEAN CORPUSCULAR VOLUME 96.6 fl (80.0-96.0); MONO # 0.6 10^3/uL (0.0-0.8); MONO % 10.2 % (0.0-5.0); NEUTROPHILS % 68.5 % (36.0-66.0); PLATELET COUNT, AUTOMATED 303 10^3/uL (150-450); RED BLOOD COUNT 3.87 10^6/uL (4.00-5.40); RED CELL DISTRIBUTION WIDTH 16.2 % (11.5-14.5); WHITE BLOOD COUNT 5.8 10^3/uL (4.0-10.0)
[2017-07-05 16:15] LABS: PTH INTACT 96.1 PG/ML (18.5-88.0); TOTAL 25(OH) VITAMIN D 36.8 NG/ML (30.0-100.0)
[2017-07-05 16:30] LABS: ESTIMATED AVERAGE GLUCOSE 151 MG/DL (60-110); HEMOGLOBIN A1c 6.9 %
[2017-07-09 00:07] LABS: TISSUE TRANSGLUTAMINASE IgA <2 U/mL (0-3)
== END ==
LOC: M SFHCPLAZ 10:21
DX: D72.829 Elevated white blood cell count, unspecified (principal); E11.49 Type 2 diabetes mellitus with other diabetic neurological complication; M81.0 Age-related osteoporosis without current pathological fracture; E78.5 Hyperlipidemia, unspecified
CPT/HCPCS: 80053

== ENCOUNTER → 2017-10-07 | Outpatient (CLI) | payer MEDICARE, MEDICAID ==
[2017-10-07 16:30] LABS: CREATININE, URINE 41.5 MG/DL; MALB URINE SIEMENS 9.2 MG/L; MAU/CREAT RATIO 22.1 MCG/MG (0.0-30.0)
[2017-10-07 16:32] LABS: ALBUMIN 3.4 GM/DL (3.2-5.2); ALBUMIN/GLOBULIN RATIO 0.94 (1.00-1.93); ALKALINE PHOSPHATASE 77 U/L (45-117); ALT/SGPT 30 U/L (12-78); ANION GAP 6 MEQ/L (8-16); AST/SGOT 21 U/L (7-37); BILIRUBIN,TOTAL 0.3 MG/DL (0.2-1.0); BLOOD UREA NITROGEN 21 MG/DL (7-18); CALCIUM LEVEL 8.9 MG/DL (8.8-10.2); CARBON DIOXIDE LEVEL 31 MEQ/L (21-32); CHLORIDE LEVEL 107 MEQ/L (98-107); GLOMERULAR FILTRATION RATE 59.1 (>45); GLUCOSE, FASTING 97 MG/DL (70-100); POTASSIUM SERUM 4.3 MEQ/L (3.5-5.1); SODIUM LEVEL 144 MEQ/L (136-145)
[2017-10-07 16:38] LABS: ESTIMATED AVERAGE GLUCOSE 169 MG/DL (60-110); HEMOGLOBIN A1c 7.5 %
== END ==
LOC: M LAB 14:52
DX: I25.719 Atherosclerosis of autologous vein coronary artery bypass graft(s) with unspecified angina pectoris (principal); E08.40 Diabetes mellitus due to underlying condition with diabetic neuropathy, unspecified; E55.9 Vitamin D deficiency, unspecified; I50.20 Unspecified systolic (congestive) heart failure
CPT/HCPCS: 80053

== ENCOUNTER → 2017-10-07 | Outpatient (REF) | payer MEDICARE, MEDICAID | LOC: M SFHCPLAZ 14:18 | DX: E11.40 Type 2 diabetes mellitus with diabetic neuropathy, unspecified (principal); Z53.8 Procedure and treatment not carried out for other reasons ==

== ENCOUNTER → 2017-10-14 | Outpatient (CLI) | payer MEDICARE, MEDICAID | LOC: M RAD 10:19 | DX: K40.00 Bilateral inguinal hernia, with obstruction, without gangrene, not specified as recurrent (principal) | CPT/HCPCS: 76857 ==

== ENCOUNTER → 2018-01-17 | Outpatient (REF) | payer MEDICARE, MEDICAID ==
[2018-01-17 12:28] LABS: HEMATOCRIT 37.2 % (36.0-47.0); MEAN CORPUSCULAR HEMOGLOBIN 31.4 pg (27.0-33.0); MEAN CORPUSCULAR HGB CONC 32.3 g/dl (32.0-36.5); MEAN CORPUSCULAR VOLUME 97.4 fl (80.0-96.0); PLATELET COUNT, AUTOMATED 303 10^3/uL (150-450); RED BLOOD COUNT 3.82 10^6/uL (4.00-5.40); RED CELL DISTRIBUTION WIDTH 14.8 % (11.5-14.5); RETIC HEMOGLOBIN EQUIVALENT 32.9 pg (24-36); RETICULOCYTE # 49.7 10^9/L (17-77); RETICULOCYTE % 1.3 % (0.5-1.5); WHITE BLOOD COUNT 5.2 10^3/uL (4.0-10.0)
[2018-01-17 12:46] LABS: ALBUMIN 3.4 GM/DL (3.2-5.2); ALBUMIN/GLOBULIN RATIO 1.06 (1.00-1.93); ALKALINE PHOSPHATASE 79 U/L (45-117); ALT/SGPT 20 U/L (12-78); ANION GAP 6 MEQ/L (8-16); AST/SGOT 15 U/L (7-37); BILIRUBIN,TOTAL 0.3 MG/DL (0.2-1.0); BLOOD UREA NITROGEN 23 MG/DL (7-18); CARBON DIOXIDE LEVEL 29 MEQ/L (21-32); CHLORIDE LEVEL 106 MEQ/L (98-107); CHOLESTEROL LEVEL 125 MG/DL (<200); CHOLESTEROL RISK RATIO 2.717 (<5); CREATININE FOR GFR 0.91 MG/DL (0.55-1.30); FERRITIN 52 NG/ML (8-252); FOLATE > 24.0 NG/ML (>5.4); FREE T4 0.91 NG/DL (0.76-1.46); GLOMERULAR FILTRATION RATE > 60.0 (>45); GLUCOSE, FASTING 221 MG/DL (70-100); HDL CHOLESTEROL 46 MG/DL (>40); IRON (FE) 38 UG/DL (50-170); LDL CHOLESTEROL 67 MG/DL (<100); NON-HDL-C 79 MG/DL; PERCENT SATURATION 18.9 % (13.2-45.0); POTASSIUM SERUM 5.1 MEQ/L (3.5-5.1); PTH INTACT 48.6 PG/ML (18.5-88.0); SODIUM LEVEL 141 MEQ/L (136-145); THYROID STIMULATING HORMONE 0.558 uIU/ML (0.358-3.740); TOTAL IRON BINDING CAPACITY 201 UG/DL (250-450); TOTAL PROTEIN 6.6 GM/DL (6.4-8.2); TRIGLYCERIDES LEVEL 59 MG/DL (<150)
[2018-01-17 14:45] LABS: ESTIMATED AVERAGE GLUCOSE 160 MG/DL (60-110); HEMOGLOBIN A1c 7.2 %
== END ==
LOC: M SFHCPLAZ 09:56
DX: D64.9 Anemia, unspecified (principal); I73.9 Peripheral vascular disease, unspecified; E08.40 Diabetes mellitus due to underlying condition with diabetic neuropathy, unspecified; E21.3 Hyperparathyroidism, unspecified
CPT/HCPCS: 82746

== ENCOUNTER → 2018-04-04 | Outpatient (REF) | payer MEDICARE, MEDICAID | LOC: M SFHCPLAZ 12:10 | DX: E11.9 Type 2 diabetes mellitus without complications (principal); Z53.8 Procedure and treatment not carried out for other reasons ==

== ENCOUNTER → 2018-04-10 | Outpatient (REF) | payer MEDICARE, MEDICAID ==
[~2018-04-10] MED LIST changes: +GABA-1171 PO; -GABA-279 PO; +NABU-126 PO; -NABU500T PO; +RAMI1CAP22 PO; -RAMI25CA PO
[2018-04-10 16:04] LABS: ALBUMIN 3.5 GM/DL (3.2-5.2); BILIRUBIN,TOTAL 0.2 MG/DL (0.2-1.0); CALCIUM LEVEL 8.9 MG/DL (8.8-10.2); CREATININE FOR GFR 1.29 MG/DL (0.55-1.30); POTASSIUM SERUM 4.9 MEQ/L (3.5-5.1); TOTAL PROTEIN 6.8 GM/DL (6.4-8.2)
[2018-04-10 16:17] LABS: HEMOGLOBIN A1c 7.2 %
== END ==
LOC: M SFHCPLAZ 12:37
PROVIDERS: ATTEND Nurse Practitioner Family
DX: I25.719 Atherosclerosis of autologous vein coronary artery bypass graft(s) with unspecified angina pectoris (principal); I73.9 Peripheral vascular disease, unspecified; I50.20 Unspecified systolic (congestive) heart failure; I15.9 Secondary hypertension, unspecified; E08.40 Diabetes mellitus due to underlying condition with diabetic neuropathy, unspecified

== ENCOUNTER → 2018-04-10 | Outpatient (CLI) | payer MEDICARE, MEDICAID ==
--- NOTE | 2018-04-10 15:33 | REPMRS ---
Patient History The patient states she had a clinical breast exam in 04/08 Family history of colorectal cancer at age 50 or over in maternal aunt, breast cancer at age 50 or over in paternal aunt. Digital Woman Screen Mammo: April 10, 2018 - Exam #: [id number] Bilateral CC and MLO view(s) were taken. Technologist: Judi Zepeda, Technologist Prior study comparison: April 02, 2017, digital woman screen mammo performed at [facility]. March 29, 2016, digital woman screen mammo performed at [facility]. March 28, 2015, digital woman screen mammo performed at [facility]. FINDINGS: The breast tissue is extremely dense which could obscure a lesion on mammography. There is an extremely dense symmetrical pattern of residual fibroglandular tissue. There has been no change in the appearance of the mammogram from the previous studies. There is no interval development of dominant mass, archetectural distortion, or microcalcific cluster suggestive of malignancy. 3-D tomosynthesis shows no additional findings. Assessment: BI-RADS/ACR category 1 mammogram. Negative. Recommendation Routine screening mammogram of both breasts in 1 year (for women over age 40). This patient's Lifetime Breast Cancer RIsk is estimated at 10.7 %. This mammogram was interpreted with the aid of an FDA-approved computer-aided dectection system. Electronically Signed By: Kristian Wyman MD 04/10/18 [id number]
== END ==
LOC: M WHC 13:33
PROVIDERS: ATTEND Nurse Practitioner Family
DX: Z12.31 Encounter for screening mammogram for malignant neoplasm of breast (principal); E04.0 Nontoxic diffuse goiter; E08.40 Diabetes mellitus due to underlying condition with diabetic neuropathy, unspecified; I25.719 Atherosclerosis of autologous vein coronary artery bypass graft(s) with unspecified angina pectoris; I73.9 Peripheral vascular disease, unspecified; I50.20 Unspecified systolic (congestive) heart failure; I15.9 Secondary hypertension, unspecified

== ENCOUNTER → 2018-07-03 | Outpatient (REF) | payer MEDICARE, MEDICAID ==
[~2018-07-03] MED LIST changes: -LASI20TA PO; +LASI20TA3 PO; -LASI40TA PO; +LASI40TA9 PO
[2018-07-03 16:42] LABS: ALBUMIN 3.9 GM/DL (3.2-5.2); BILIRUBIN,TOTAL 0.3 MG/DL (0.2-1.0); CALCIUM LEVEL 8.9 MG/DL (8.8-10.2); CREATININE FOR GFR 0.99 MG/DL (0.55-1.30); GLOMERULAR FILTRATION RATE 59.6 (>45); POTASSIUM SERUM 4.6 MEQ/L (3.5-5.1)
== END ==
LOC: M SFHCPLAZ 13:37
PROVIDERS: ATTEND Nurse Practitioner Family
DX: E78.5 Hyperlipidemia, unspecified (principal); E08.40 Diabetes mellitus due to underlying condition with diabetic neuropathy, unspecified
CPT/HCPCS: 36415; 80053; 83036; G0463

== ENCOUNTER → 2018-07-24 | Outpatient (CLI) | payer MEDICAID, MEDICARE ==
[~2018-07-24] MED LIST changes: -ASPI1TAB PO; +ASPI81TA26 PO
--- NOTE | 2018-07-24 11:29 | REP ---
CHEST CT WITHOUT CONTRAST: Low-dose screening exam. HISTORY: Tobacco use. Comparison CT study January 13, 2016. CT FINDINGS: Digital preliminary biomedical service engineer radiograph demonstrates that the patient is status post mitral valve replacement via median sternotomy. The axial CT images demonstrate a moderate coarse linear fibrosis in both lung bases unchanged from the prior study. There are multiple small subcentimeter nodular opacities, the largest of which measures 4 mm in diameter. All of these are unchanged when compared with the January 10, 2016 prior study. No new pulmonary nodule or mass lesion is seen. Advanced degenerative disc disease is noted at the thoracolumbar junction unchanged. There is advanced vascular calcification also noted. IMPRESSION: Lung RADS category 2 benign findings. Repeat screening exam indicated in 1 year. Electronically Signed by Elliot Wyman MD 07/24/2018 01:06 P
== END ==
LOC: M RAD 09:02
PROVIDERS: ATTEND Nurse Practitioner Family
DX: Z12.2 Encounter for screening for malignant neoplasm of respiratory organs (principal); F17.210 Nicotine dependence, cigarettes, uncomplicated; J84.10 Pulmonary fibrosis, unspecified; R91.8 Other nonspecific abnormal finding of lung field; M51.37 Other intervertebral disc degeneration, lumbosacral region

== ENCOUNTER → 2018-08-21 | Outpatient (CLI) | payer MEDICARE ==
--- NOTE | 2018-08-21 16:36 | REP ---
DUPLEX DOPPLER ARTERIAL ULTRASOUND BILATERAL LOWER EXTREMITIES: Real-time ultrasound evaluation and duplex Doppler interrogation of the bilateral lower extremity arterial systems is performed. Distal abdominal aorta measures 1.1 cm in AP dimension. Right common iliac artery measures 7 x 6 mm. Left common iliac artery demonstrates a stent and measures 7 x 6 mm. Biphasic waveforms are seen in the right common femoral artery and profunda with monophasic waveforms seen distal to that. There is occlusion of the mid right superficial femoral artery with reconstitution distally of the superficial femoral artery. There is stenosis at the origin of the right profunda. There is occlusion of the distal right posterior tibial artery. Severe calcified plaque is seen throughout the left lower extremity arterial system. The proximal left SFA is occluded through the popliteal artery and proximal anterior tibial artery. There is reconstitution of the tibial peroneal trunk. There is occlusion of the proximal left posterior tibial artery with distal reconstitution. The distal anterior and posterior tibial arteries are occluded. Right PSV Left PSV Common femoral artery 109 cm/s 141 cm/s Profunda 187 cm/s 42.3 cm/s Proximal SFA 29.8 cm/s occluded Mid SFA occluded occluded Distal SFA 43.4 cm/s occluded Popliteal 30.8 cm/s occluded Proximal DIONE 33.2 cm/s occluded Tibial peroneal trunk 43.1 cm/s 19.8 cm/s Proximal SIX HORSE HITCH DRIVER 56.1 cm/s occluded Distal SIX HORSE HITCH DRIVER occluded occluded Distal DIONE 7.7 cm/s occluded IMPRESSION: Stenosis right profunda origin. Occlusion of the proximal to mid right superficial femoral artery with reconstitution of the distal SFA. Occlusion right distal SIX HORSE HITCH DRIVER. Occlusion left proximal SFA through popliteal with revascularization at the tibial peroneal trunk. Occlusion proximal left SIX HORSE HITCH DRIVER with reconstitution of the mid aspect. The distal DIONE and SIX HORSE HITCH DRIVER are occluded. Electronically Signed by Avtar Brewster MD 08/22/2018 12:50 P
== END ==
LOC: M RAD 10:47
PROVIDERS: ATTEND Surgery Vascular Surgery
DX: I73.9 Peripheral vascular disease, unspecified (principal)

== ENCOUNTER → 2018-09-03 | Outpatient (CLI) | payer MEDICARE, MEDICAID ==
[2018-09-03 15:40] LABS: BASO # 0.1 10^3/uL (0.0-0.2); BASO % 0.9 % (0.0-1.0); EOS # 0.1 10^3/uL (0.0-0.50); EOS % 2.5 % (0.0-3.0); HEMATOCRIT 35.2 % (36.0-47.0); HEMOGLOBIN 11.1 g/dl (12.0-15.5); LYMPH # 0.9 10^3/uL (1.5-4.5); LYMPH % 16.3 % (24.0-44.0); MEAN CORPUSCULAR HGB CONC 31.5 g/dl (32.0-36.5); MEAN CORPUSCULAR VOLUME 98.3 fl (80.0-96.0); MONO # 0.7 10^3/uL (0.0-0.8); NEUTROPHILS # 3.5 10^3/uL (1.8-7.7); NEUTROPHILS % 65.9 % (36.0-66.0); PLATELET COUNT, AUTOMATED 268 10^3/uL (150-450); RED BLOOD COUNT 3.58 10^6/uL (4.00-5.40); WHITE BLOOD COUNT 5.3 10^3/uL (4.0-10.0)
[2018-09-03 16:19] LABS: CALCIUM LEVEL 8.6 MG/DL (8.8-10.2); CREATININE FOR GFR 1.08 MG/DL (0.55-1.30); GLOMERULAR FILTRATION RATE 53.9 (>45); POTASSIUM SERUM 4.9 MEQ/L (3.5-5.1)
== END ==
LOC: M LAB 15:06
PROVIDERS: ATTEND Surgery Vascular Surgery
DX: I70.213 Atherosclerosis of native arteries of extremities with intermittent claudication, bilateral legs (principal)

== ENCOUNTER → 2018-09-10 | Outpatient (CLI) | payer MEDICARE, MEDICAID ==
[~2018-09-10] MED LIST changes: +BUPIVACAINE HCL 0.5% 10 ML VIAL As Ordered ONE; +HEPARIN 1,000 UNITS/ML 10ML VIAL (FOR RADIOLOGY& DIALYSIS ONLY) As Ordered ONE; +ISOVUE-300 61% 100ML VIAL (Q9967) As Ordered ONE; +LEVEMIR (INSULIN DETEMIR) 1 UNITS/0.01ML As Ordered ONE; +LIDOCAINE 2% MDV 20 ML VIAL As Ordered ONE; +MIDAZOLAM INJ 2 MG/2 ML VIAL (J2250) As Ordered ONE; +PROTAMINE SULF INJ 50 MG/5 ML VIAL (J2720) As Ordered ONE; +diphenhydrAMINE INJ 50MG/ML VIAL (J1200) As Ordered ONE; +fentaNYL 100 MCG/2 ML INJECTION (J3010) As Ordered ONE
--- NOTE | 2018-09-27 11:58 | REPIR ---
DATE OF PROCEDURE: 09/10/2018 PREOPERATIVE DIAGNOSES: Chronic renal insufficiency, bilateral lower extremity claudication left greater than right. POSTOPERATIVE DIAGNOSES: Chronic renal insufficiency, bilateral lower extremity claudication left greater than right. PROCEDURE: Aortogram, iliofemoral angiogram, selective left common femoral artery catheter placement with left lower extremity angiogram, selective left profunda femoris artery catheter placement with left lower extremity angiogram, left external iliac artery angioplasty and stent with an 8 x 38 Wallstent postdilated with 7 x 40 mm balloon, left common iliac artery angioplasty 7 x 40 mm balloon, right common femoral artery angioplasty with 7 x 40 mm balloon, MYNX closure of the right common femoral arteriotomy. SURGEON: Dr. Kaela Parsons. BACK END DEVELOPER: Renae Martin ANESTHESIA: Local with 10 mL Benadryl, 50 mg. HEPARIN: 6000 units, protamine 50 mg. FLUORO TIME: 7.7 minutes. CONTRAST: 14 mL of Isovue-300. INDICATION: The patient is a 68-year-old female with claudication in the lower extremities. The patient will undergo angiography. DESCRIPTION OF PROCEDURE: The patient was taken to the angiography suite, placed supine on the angiography room table and the right common femoral artery was cannulated with a micropuncture needle. After anesthetizing the overlying skin, the catheter was placed in the aorta and aortogram was performed. Catheter was pulled down to the level of bifurcation of iliac arteries and an iliofemoral angiogram was performed. Catheter was then directed up and over the bifurcation, placed in the left common femoral artery and a left lower extremity angiogram was performed. Catheter was placed in the left profunda femoris artery and a left lower extremity angiogram was performed. The left external iliac artery was then angioplasty and stented with an 8 x 38 Wallstent postdilated with 7 x 40 mm balloon. The left common iliac artery underwent angioplasty with a 7 x 40 mm balloon. The right common iliac artery underwent angioplasty with a7 x 40 mm balloon. A completion aortogram showed resolution of the stenosis with excellent flow through the regions of previous stenosis. A MYNX closure was then used close the arteriotomy in the right common femoral artery with an additional 10 minutes of adjunctive pressure applied for hemostasis. Dressings were then applied. The patient tolerated procedure well. All instrument, sponge and needle counts were correct at the end the case. There were no complications. Dr. Parsons was present for and directed the entire case. The patient was transferred to [facility] and subsequently discharged in stable condition.
== END | disposition home or self-care (01) ==
LOC: M IRPRO 06:45
PROVIDERS: ATTEND Surgery Vascular Surgery
DX: I70.212 Atherosclerosis of native arteries of extremities with intermittent claudication, left leg (principal); N18.9 Chronic kidney disease, unspecified
CPT/HCPCS: 37221; 37222; 37224; 75710; 75774; C1725; C1760; C1769; C1876; C1887; C1894; J1200; J2720; Q9967

== ENCOUNTER → 2018-10-20 | Outpatient (CLI) | payer MEDICARE, MEDICAID ==
[~2018-10-20] MED LIST changes: -BUPIVACAINE HCL 0.5% 10 ML VIAL As Ordered ONE; -HEPARIN 1,000 UNITS/ML 10ML VIAL (FOR RADIOLOGY& DIALYSIS ONLY) As Ordered ONE; -ISOVUE-300 61% 100ML VIAL (Q9967) As Ordered ONE; -LEVEMIR (INSULIN DETEMIR) 1 UNITS/0.01ML As Ordered ONE; -LIDOCAINE 2% MDV 20 ML VIAL As Ordered ONE; -MIDAZOLAM INJ 2 MG/2 ML VIAL (J2250) As Ordered ONE; -PROTAMINE SULF INJ 50 MG/5 ML VIAL (J2720) As Ordered ONE; -diphenhydrAMINE INJ 50MG/ML VIAL (J1200) As Ordered ONE; -fentaNYL 100 MCG/2 ML INJECTION (J3010) As Ordered ONE
--- NOTE | 2018-10-20 12:07 | REP ---
BILATERAL LOWER EXTREMITY DUPLEX DOPPLER ARTERIAL ULTRASOUND: Real-time sonographic evaluation and duplex Doppler arterial ultrasound performed bilaterally and compared to a prior study of 08/21/2018. Since the prior study, the patient has had left external iliac artery angioplasty and stent placement, left common iliac artery angioplasty and right common femoral artery angioplasty. Extensive bilateral plaquing is seen once again. There is occlusion of the mid right superficial femoral artery as seen on prior study. The reconstitution distally via the genicular artery. There is again occlusion of the distal right posterior tibial artery. There is again occlusion of the proximal left superficial femoral artery extending into the distal aspect with the collateral vessels seen posteriorly with reconstitution of the popliteal artery. Slow flow is seen in the left calf arteries. Right Peak Left Peak Systolic Velocity Systolic velocity Common femoral artery 160.5 cm/s 119.2 cm/s Profunda 162.0 cm/s 165.3 cm/s Proximal SFA 38.5 cm/s occluded Mid SFA occluded occluded Distal SFA 119.3 cm/s occluded Popliteal 59.7 cm/s 18.2 cm/s Proximal DIONE 32.5 cm/s 24.0 cm/s Tibial peroneal trunk 33.6 cm/s 18.2 cm/s Proximal REAL ESTATE SERVICES ADMINISTRATOR 68.7 cm/s 22.8 cm/s Distal REAL ESTATE SERVICES ADMINISTRATOR occluded 16.5 cm/s Distal DIONE 79.2 cm/s 26.8 cm/s IMPRESSION: Once again, there is occlusion of the mid right SFA and distal right REAL ESTATE SERVICES ADMINISTRATOR, as well as the proximal and distal left superficial femoral artery. There are collateral vessels on the left that reconstitute the popliteal artery, with slow flow distal to that. Electronically Signed by Avtar Brewster MD 10/20/2018 04:25 P
== END ==
LOC: M RAD 09:03
PROVIDERS: ATTEND Physician Assistant
DX: I70.213 Atherosclerosis of native arteries of extremities with intermittent claudication, bilateral legs (principal)

== ENCOUNTER → 2018-11-05 | Outpatient (REF) | payer MEDICARE, MEDICAID ==
[~2018-11-05] MED LIST changes: +CALC-190 PO; +NORC1TAB7 PO
[2018-11-05 11:22] LABS: HEMOGLOBIN A1c 7.2 %
[2018-11-05 11:24] LABS: ALBUMIN 3.2 GM/DL (3.2-5.2); BILIRUBIN,TOTAL 0.3 MG/DL (0.2-1.0); CALCIUM LEVEL 8.8 MG/DL (8.8-10.2); CHOLESTEROL RISK RATIO 2.86 (<5); CREATININE FOR GFR 1.04 MG/DL (0.55-1.30); GLOMERULAR FILTRATION RATE 56.3 (>45); POTASSIUM SERUM 4.9 MEQ/L (3.5-5.1); TOTAL PROTEIN 6.8 GM/DL (6.4-8.2)
== END ==
LOC: M SFHCPLAZ 09:08
PROVIDERS: ATTEND Nurse Practitioner Family
DX: E78.2 Mixed hyperlipidemia (principal); I15.9 Secondary hypertension, unspecified; E11.49 Type 2 diabetes mellitus with other diabetic neurological complication

== ENCOUNTER 2019-01-08 09:59 | Day surgery (SDC) | payer MEDICARE, MEDICAID ==
[~2019-01-08] VITALS: Ht 139.7 cm; Wt 44.9 kg
[2019-01-08] MEDS: NS 1,000 ML IV ONE (06:00)
[~2019-01-08 09:59] MED LIST changes: -NORC1TAB7 PO
--- NOTE | 2019-01-08 12:24 | ROOR ---
Patient Name: Tigist Croft Procedure Date: 01/08/2019 12:03 PM Date of : 1950 Age: 68 Room: [facility] Gender: Female Note Status: Finalized Procedure: Colonoscopy Indications: Screening for colorectal malignant neoplasm Providers: Kerwin Barillas Jr, MD Referring MD: Ayaan Kirby MD Requesting Provider: Medicines: Propofol per Anesthesia Complications: No immediate complications. Procedure: Pre-Anesthesia Assessment: - Prior to the procedure, a History and Physical was performed, and patient medications and allergies were reviewed. The patient is competent. The risks and benefits of the procedure and the sedation options and risks were discussed with the patient. All questions were answered and informed consent was obtained. Patient identification and proposed procedure were verified by the physician and the nurse in the pre-procedure area and in the procedure room. Mental Status Examination: alert and oriented. Airway Examination: normal oropharyngeal airway and neck mobility. Respiratory Examination: clear to auscultation. CV Examination: normal. ASA Grade Assessment: II - A patient with mild systemic disease. After reviewing the risks and benefits, the patient was deemed in satisfactory condition to undergo the procedure. The anesthesia plan was to use moderate sedation / analgesia (conscious sedation). Immediately prior to administration of medications, the patient was re-assessed for adequacy to receive sedatives. The heart rate, respiratory rate, oxygen saturations, blood pressure, adequacy of pulmonary ventilation, and response to care were monitored throughout the procedure. The physical status of the patient was re-assessed after the procedure. The Colonoscope was introduced through the anus and advanced to the cecum, identified by appendiceal orifice and ileocecal valve. The colonoscopy was performed without difficulty. The patient tolerated the procedure well. The quality of the bowel preparation was adequate. Findings: The rectum, recto-sigmoid colon, sigmoid colon, descending colon, transverse colon, ascending colon, cecum, appendiceal orifice and ileocecal valve appeared normal. Impression: - The rectum, recto-sigmoid colon, sigmoid colon, descending colon, transverse colon, ascending colon, cecum, appendiceal orifice and ileocecal valve are normal. - No specimens collected. Recommendation: - Discharge patient to home (ambulatory). - Repeat colonoscopy in 10 years for screening purposes. Kerwin Barillas MD Kerwin Barillas Jr, MD 01/08/2019 12:23:34 PM Electronically signed by Kerwin Barillas Jr, MD Number of Addenda: 0 Note Initiated On: 01/08/2019 12:03 PM Estimated Blood Loss: Estimated blood loss: none.
[2019-01-08 12:55] VITALS: BP 102/58
== END 2019-01-08 12:56 | disposition home or self-care (01) ==
LOC: M OPP 09:59
PROVIDERS: ATTEND Surgery
DX: Z12.11 Encounter for screening for malignant neoplasm of colon (principal); Z86.010 Personal history of colon polyps; F17.210 Nicotine dependence, cigarettes, uncomplicated; Z79.4 Long term (current) use of insulin; Z79.82 Long term (current) use of aspirin; Z79.899 Other long term (current) drug therapy; Z88.1 Allergy status to other antibiotic agents; Z88.8 Allergy status to other drugs, medicaments and biological substances

== ENCOUNTER → 2019-01-26 | Outpatient (CLI) | payer MEDICAID, MEDICARE ==
--- NOTE | 2019-01-26 11:27 | REP ---
BILATERAL LOWER EXTREMITY DUPLEX DOPPLER ARTERIAL ULTRASOUND: COMPARISON: 10/20/2018 Real-time ultrasound evaluation and duplex Doppler interrogation bilateral lower extremity arterial system is performed. There is significant calcific plaque diffusely bilaterally. Once again, there is evidence of occlusion of the mid right superficial femoral artery with reconstitution of the distal superficial femoral artery. There is diminished flow in the right posterior tibial artery with decreased flow velocity distally. There is again occlusion of the left superficial femoral artery which now extends to the proximal posterior tibial artery. Previously, there was reconstitution and flow seen in the left popliteal artery but there is no flow today, with occlusion of the left popliteal artery. The occlusion also involves the proximal anterior tibial artery. There is reconstitution of the mid to distal anterior and posterior tibial arteries via collateral vessels. Diffuse mild phasic waveforms are identified bilaterally. Right Peak Left Peak Systolic Velocity Systolic velocity Common femoral artery 224.1 cm/s 167.2 cm/s Profunda 179.3 cm/s 170.4 cm/s Proximal SFA 34.3 cm/s occluded Mid SFA occluded occluded Distal SFA 94.4 cm/s occluded Popliteal 85.1 cm/s occluded Proximal DIONE 50.3 cm/s occluded Tibial peroneal trunk 38.4 cm/s occluded Proximal PRACTICE BILLING ASSOCIATE 71.1 cm/s occluded Distal PRACTICE BILLING ASSOCIATE 11.9 cm/s 9.8 cm/s Distal DIONE 85.0 cm/s 23.8 cm/s IMPRESSION: Once again, there is occlusion of the mid right SFA with reconstitution of the distal SFA via collateral vessels, as seen on prior study of 10/20/2018. Once again, there is also noted to be occlusion of the proximal left SFA. This now extends more distally compared to the prior study, involving the tibioperoneal trunk and proximal anterior and posterior tibial arteries with reconstitution of the mid to distal anterior and posterior tibial arteries. Electronically Signed by Avtar Brewster MD 01/26/2019 11:29 P
== END ==
LOC: M RAD 08:48
PROVIDERS: ATTEND Physician Assistant
DX: I70.213 Atherosclerosis of native arteries of extremities with intermittent claudication, bilateral legs (principal); F17.200 Nicotine dependence, unspecified, uncomplicated

== ENCOUNTER 2019-03-29 19:05 | Emergency (ER) | payer MEDICAID, MEDICARE ==
[~2019-03-29] VITALS: Ht 144.8 cm; Wt 47.1 kg
[2019-03-29] MEDS ORDERED: NORCO, ANEXSIA 5/325MG TABLET (HYDROcodone/ACETAMINOPHEN) PO ONE (19:45)
[2019-03-29] MEDS ORDERED: NS 1,000 ML IV SCH (19:45)
[2019-03-29 20:10] LABS: HEMOGLOBIN 12.2 g/dl (12.0-15.5); MEAN CORPUSCULAR HEMOGLOBIN 30.8 pg (27.0-33.0); MEAN CORPUSCULAR HGB CONC 32.1 g/dl (32.0-36.5); PLATELET COUNT, AUTOMATED 284 10^3/uL (150-450); RED BLOOD COUNT 3.96 10^6/uL (4.00-5.40); WHITE BLOOD COUNT 7.1 10^3/uL (4.0-10.0)
[2019-03-29 20:41] LABS: CALCIUM LEVEL 9.2 MG/DL (8.8-10.2); CREATININE FOR GFR 1.03 MG/DL (0.55-1.30); GLOMERULAR FILTRATION RATE 56.9 (>45); POTASSIUM SERUM 4.6 MEQ/L (3.5-5.1)
[2019-03-29] MEDS ORDERED: ISOVUE-370 76% 100ML VIAL (Q9967) As Ordered ONE (20:49)
--- NOTE | 2019-03-29 21:49 | REPVR ---
PROCEDURE INFORMATION: Exam: CT Abdomen With Contrast Exam date and time: 03/29/2019 8:52 PM Age: 68 years old Clinical history: Abdominal pain; Localized; Left upper quadrant (luq); Additional info: Pain luq spleen TECHNIQUE: Imaging protocol: Computed tomography images of the abdomen with intravenous contrast. Radiation optimization: All CT scans at this facility use at least one of these dose optimization techniques: automated exposure control; mA and/or kV adjustment per patient size (includes targeted exams where dose is matched to clinical indication); or iterative reconstruction. Contrast material: ISOVUE 370; Contrast volume: 100 ml; Contrast route: IV; COMPARISON: No relevant prior studies available. FINDINGS: Tubes, catheters and devices: Pericardial leads. Lungs: Dependent subsegmental pulmonary atelectasis. Heart: Mitral valve repair. Liver: Normal. No mass. Gallbladder and bile ducts: Mild/moderate intrahepatic and extrahepatic biliary duct dilatation. Decompressed gallbladder. Pancreas: Normal. No ductal dilation. Spleen: Normal. No splenomegaly. Adrenals: Normal. No mass. Kidneys and ureters: Mild renal lobulation and scarring. Stomach and bowel: Mild gastroesophageal thickening. Avid gastric wall enhancement with mild gastric submucosal edema. Constipation. Intraperitoneal space: Unremarkable. No free air. No significant fluid collection. Lymph nodes: Unremarkable. No enlarged lymph nodes. Vasculature: Moderate mesenteric artery atherosclerosis. Bones/joints: L4 spondylolysis with 1 cm anterolisthesis and severe foraminal stenosis. Soft tissues: Unremarkable. Moderate renal artery stenosis. IMPRESSION: 1. Mild gastroesophageal thickening. Avid gastric wall enhancement with mild gastric submucosal edema. Correlate for gastroesophagitis. 2. Mild/moderate intrahepatic and extrahepatic biliary duct dilatation. 3. Constipation. 4. L4 spondylolysis with 1 cm anterolisthesis and severe foraminal stenosis. Electronically signed by: Jeet Red On 03/29/2019 21:49:02 PM
[2019-03-29] MEDS ORDERED: NORC1TAB7 PO (22:05)
[2019-03-29] MEDS ORDERED: NORCO 5/325MG TABLET (BULK FOR ED) PO ONE (22:15)
[2019-03-29 22:37] VITALS: BP 147/76
--- NOTE | 2019-03-30 08:31 | REP ---
Left rib series: Five views. History: Injury in a fall. Findings: There are linear opacities in the left base consistent with plate-like atelectasis and some linear fibrosis. There was some linear fibrosis here on prior study from October 12, 2015. There is no evidence of hemothorax or pneumothorax. Mediastinum is not widened traumatically. Median sternotomy wires are noted and the patient is status post aortic valve replacement. There are epicardial pacemaker wires visible. There is some diffuse osteopenia. Multiple rib views demonstrate a nondisplaced fracture of the left posterior 10th rib. No other rib fracture is appreciated. No bony destructive lesion is seen. Impression: Left posterior 10th rib fracture. Plate-like atelectasis and fibrosis left base. There is some plate-like atelectasis in the right base as well. Prior median sternotomy and aortic valve replacement. Electronically Signed by Elliot Wyman MD 03/30/2019 12:13 P
--- NOTE | 2019-03-30 16:46 | ED PDOC ---
Post-Departure Follow-Up brad clemons faxed fomral report of ct abd/p for fu Brenda Tadeo MD Mar 30, 2019 16:46
== END 2019-03-29 22:39 | disposition home or self-care (01) ==
LOC: M ED 19:05
DX: S22.32XA Fracture of one rib, left side, initial encounter for closed fracture (principal); W19.XXXA Unspecified fall, initial encounter; Y92.099 Unspecified place in other non-institutional residence as the place of occurrence of the external cause; Y93.9 Activity, unspecified; Y99.9 Unspecified external cause status; K59.00 Constipation, unspecified; I51.9 Heart disease, unspecified; E11.9 Type 2 diabetes mellitus without complications; I10 Essential (primary) hypertension; Z95.1 Presence of aortocoronary bypass graft; Z79.82 Long term (current) use of aspirin; Z79.4 Long term (current) use of insulin; Z79.899 Other long term (current) drug therapy; Z88.1 Allergy status to other antibiotic agents; Z88.8 Allergy status to other drugs, medicaments and biological substances
CPT/HCPCS: 71101; 74160; 80048; 85027; 86850; 86900; 86901; 96360; 96361; 99284; Q9967

== ENCOUNTER → 2019-04-07 | Outpatient (CLI) | payer MEDICARE ==
[~2019-04-07] MED LIST changes: +HEPARIN 1,000 UNITS/ML 10ML VIAL (FOR RADIOLOGY& DIALYSIS ONLY) As Ordered ONE; +ISOVUE-300 61% 50ML VIAL (Q9967) As Ordered ONE; +LIDOCAINE 1% MDV 20ML VIAL As Ordered ONE; +MIDAZOLAM INJ 2 MG/2 ML VIAL (J2250) As Ordered ONE; +NORC1TAB7 PO; +fentaNYL 100 MCG/2 ML INJECTION (J3010) As Ordered ONE
[2019-04-07 09:16] LABS: HEMATOCRIT 36.3 % (36.0-47.0); HEMOGLOBIN 11.7 g/dl (12.0-15.5); MEAN CORPUSCULAR HGB CONC 32.2 g/dl (32.0-36.5); MEAN CORPUSCULAR VOLUME 96.3 fl (80.0-96.0); PLATELET COUNT, AUTOMATED 314 10^3/uL (150-450); RED BLOOD COUNT 3.77 10^6/uL (4.00-5.40); WHITE BLOOD COUNT 5.3 10^3/uL (4.0-10.0)
[2019-04-07 09:42] LABS: CREATININE FOR GFR 1.1 MG/DL (0.55-1.30); GLOMERULAR FILTRATION RATE 52.7 (>45); POTASSIUM SERUM 4.5 MEQ/L (3.5-5.1)
--- NOTE | 2019-04-07 10:52 | ROOPDOC ---
[facility] Report Of Operation Report of Operation DATE OF PROCEDURE: 04/07/19 PREPROCEDURE DIAGNOSES: Atherosclerosis in the [place] arteries with severe claudication bilateral lower extremities. POSTPROCEDURE DIAGNOSES: Same. PROCEDURE: 1. Ultrasound-guided access left common femoral artery 2. Aortoiliofemoral arteriogram 3. Runoff of the left lower extremity from left femoral access 4. Runoff of the right lower extremity from selection of the right common femoral artery 5. Mynx closure left common femoral artery SURGEON: Marito Brown MD ANESTHESIA: Local anesthesia of 4 mL lidocaine. Moderate intravenous conscious sedation was supervised by Dr. Brown. The patient was independently monitored by a registered nurse assigned to the Department of radiology using automated blood pressure, EKG, and pulse oximetry. The detailed sedation record is housed in the hospital information system. The following is the brief sedation record: Start time 09:52, stop time 10:23, Versed 1 mg IV, fentanyl 25 g IV. CONTRAST: 44 mL Isovue-300 INDICATION FOR PROCEDURE: This is a very pleasant 68-year-old patient with profound left lower extremity peripheral vascular disease status post failed left femoropopliteal bypass with Dr. Parsons in the past due to limited outflow. She says she has been told there is nothing more that can be done for her left lower extremity. I reviewed Dr. Parsons's images, and it is difficult to tell if she has any name vessels below the knee. We will do a quick arteriogram on the left lower extremity today to see if there is anything else we can do to offer her revascularization. Regarding her right lower extremity, noninvasive studies suggest SFA occlusion and tibial disease. We will do a right lower extremity art eriogram and possible intervention. Risks benefits and alternatives were explained to the patient she is agreeable to proceed. Informed consent was obtained. INTERPRETATION: 1. The aortoiliofemoral segments are widely patent, including the left common and external iliac stents previously placed by Dr. Parsons. 2. The left lower extremity arterial flow is abysmal. There is some flow from the common femoral and profunda, but almost the entire right lower extremity is supplied by thready small collateral circulation. The peroneal artery reconstitutes in the mid calf, but is extremely small and thready, approximately 1 mm diameter. The superficial femoral artery, popliteal artery, anterior tibial artery, posterior tibial artery are all chronically occluded and do not reconstitute. There is no suitable targets for bypass. 3. The right lower extremity flow is somewhat better. She has good flow from the common femoral into the profunda which provides collaterals to the lower extremity. The SFA has a flush occlusion 3-4 cm from its origin, and then reconstitutes at Omar's canal from collateral circulation. There is significant disease in the popliteal artery, especially in the midportion where there is heavy plaque, but the distal popliteal artery is patent. The patient has good flow down through the tibioperoneal trunk into the peroneal artery all the way to the ankle. The posterior tibial arteries chronically occluded and does not reconstitute. The anterior tibial artery is open proximally, but becomes pretty thready and intermittently occluded towards the ankle and foot. Minimal flow is noted in the microvascular system of the foot. She does have a suitable option for a femoral below-knee popliteal bypass on the right lower extremity. 4. We attempted to cross the occlusion in the right superficial femoral artery, but were unable to do so and this was aborted. Completion arteriogram showed no extravasation after trying to cross the occlusion. REPORT OF OPERATION: The patient was brought to the angiographic suite in stable condition. Her bilateral groins were prepped and draped in sterile fashion. A timeout was performed. Sedation was administered without complication. Local anesthesia was administered to the skin and subcutaneous tissue over the left groin. Needle was used to access the artery under ultrasound guidance and a wire was passed through this access under fluoroscopic guidance. The needle was removed and a micro-sheath was placed. Through this access, a Glidewire was advanced into the central system under fluoroscopic guidance. The sheath was exchanged for 6 [place] sheath and flushed with saline. An Omni flush catheter was advanced over the wire into the central system and the wire was removed. An aortoiliofemoral arteriogram was performed, please see interpretation above. We then performed a runoff of the left lower extremity through the left common femoral artery sheath, please see interpretation above. We then went up and over the bifurcation with the Omni flush catheter in the Glidewire and selected the right common femoral artery. An arteriogram with runoff of the right lower extremity was performed, please see interpretation above. We then selected the SFA with the Glidewire and encountered a dense calcified occlusion. A [place] catheter was placed over the wire but we were still not able to cross the dense occlusion. We then exchanged the wire for 30 g tip wire to see if we could spend the wire in general through the occlusion, but this was also unsuccessful. We were also unable to get into a subintimal plane to get around the occlusion that way, and the procedure was aborted. Quick contrast injection confirmed there was no extravasation from our efforts to cross. We then concluded her procedure and applied a Mynx closure device the left common femoral artery with good hemostasis. Pressure was held for 10 minutes and the patient was taken to recovery in stable condition. There were no complications and the patient tolerated the procedure and the sedation well. ESTIMATED BLOOD LOSS: Approximately 2 mL. COMPLICATIONS: None. PLAN: We will obtain a vein mapping to see if the patient has an option for a greater saphenous or lesser saphenous vein bypass on the right, femoral to below-knee popliteal. Otherwise, she may require a PTFE bypass. I'm hoping that she will have better luck with this bypass since she has two-vessel runoff and options for retrograde flow through the popliteal artery. On the left lower extremity, we have no options for revascularization or bypass. The patient should continue to ambulate as much as she can tolerate to encourage collateral circulation. She will need a stress test that she has not had one within the year and medical clearance. She can resume all home medications. MARITO BROWN MD Apr 07, 2019 10:52
--- NOTE | 2019-04-07 13:39 | REP ---
Bilateral lower extremity venous ultrasound: Vein mapping study. History: For bypass graft vessel use. Findings: There is no evidence of deep vein thrombosis on either side. Color flow and spectral Doppler interrogation are unremarkable. The veins are anechoic and compressible. On the right, only a short segment of proximal greater saphenous vein is visible. The greater saphenous vein is not seen below the proximal thigh, approximately 2 cm from its junction. Question previous greater saphenous vein harvest. The right lesser saphenous vein measures 1.9 mm in AP dimension in the proximal calf, 1.7 mm at mid calf, and 1.1 mm in the distal calf. On the left, the greater saphenous vein measures 2.7 mm proximal thigh, 2.5 mm at midthigh, 2.4 mm and distal thigh, 1.6 mm just below the knee, 2.1 mm at mid calf, and 1.7 mm at the ankle. The left lesser saphenous vein measures 1.5 mm in the proximal calf, 1.4 mm at mid calf, and 1.1 mm at distal calf. Electronically Signed by Elliot Wyman MD 04/07/2019 01:31 P
[2019-04-07 14:30] VITALS: BP 115/58
== END ==
LOC: M IRPRO 08:11
PROVIDERS: ATTEND Surgery Vascular Surgery
DX: I70.213 Atherosclerosis of native arteries of extremities with intermittent claudication, bilateral legs (principal); I70.92 Chronic total occlusion of artery of the extremities

== ENCOUNTER 2019-04-10 13:21 | Emergency (ER) | payer MEDICAID, MEDICARE ==
[~2019-04-10] VITALS: Ht 144.8 cm; Wt 45.5 kg
[2019-04-10 15:06] VITALS: BP 141/89
== END 2019-04-10 15:12 | disposition home or self-care (01) ==
LOC: EDBD 13:21 → M ED 13:21
DX: E11.649 Type 2 diabetes mellitus with hypoglycemia without coma (principal); I25.10 Atherosclerotic heart disease of native coronary artery without angina pectoris; I10 Essential (primary) hypertension; E78.5 Hyperlipidemia, unspecified; Z95.1 Presence of aortocoronary bypass graft; Z79.82 Long term (current) use of aspirin; Z79.4 Long term (current) use of insulin; Z79.899 Other long term (current) drug therapy; Z88.1 Allergy status to other antibiotic agents; Z88.8 Allergy status to other drugs, medicaments and biological substances

== ENCOUNTER → 2019-04-10 | Outpatient (CLI) | payer MEDICARE ==
[~2019-04-10] MED LIST changes: -HEPARIN 1,000 UNITS/ML 10ML VIAL (FOR RADIOLOGY& DIALYSIS ONLY) As Ordered ONE; -ISOVUE-300 61% 50ML VIAL (Q9967) As Ordered ONE; -LIDOCAINE 1% MDV 20ML VIAL As Ordered ONE; -MIDAZOLAM INJ 2 MG/2 ML VIAL (J2250) As Ordered ONE; -fentaNYL 100 MCG/2 ML INJECTION (J3010) As Ordered ONE
[2019-04-10 14:32] LABS: HEMOGLOBIN A1c 6.5 %
[2019-04-10 14:53] LABS: CREATININE, URINE 88.3 MG/DL; MALB URINE SIEMENS 5.4 MG/L; MAU/CREAT RATIO 6.1 MCG/MG (0.0-30.0)
[2019-04-10 15:00] LABS: ALBUMIN 3.5 GM/DL (3.2-5.2); ALT/SGPT 21 U/L (12-78); BILIRUBIN,TOTAL 0.5 MG/DL (0.2-1.0); BLOOD UREA NITROGEN 24 MG/DL (7-18); CALCIUM LEVEL 9.3 MG/DL (8.8-10.2); CARBON DIOXIDE LEVEL 29 MEQ/L (21-32); CHLORIDE LEVEL 108 MEQ/L (98-107); CREATININE FOR GFR 0.95 MG/DL (0.55-1.30); GLOMERULAR FILTRATION RATE > 60.0 (>45); GLUCOSE, FASTING 31 MG/DL (70-100); POTASSIUM SERUM 5.1 MEQ/L (3.5-5.1); SODIUM LEVEL 144 MEQ/L (136-145); TOTAL PROTEIN 7.5 GM/DL (6.4-8.2)
== END ==
LOC: M PLALAB 11:25
PROVIDERS: ATTEND Nurse Practitioner Family
DX: I73.9 Peripheral vascular disease, unspecified (principal); E08.40 Diabetes mellitus due to underlying condition with diabetic neuropathy, unspecified; E78.5 Hyperlipidemia, unspecified

== ENCOUNTER → 2019-04-13 | Outpatient (CLI) | payer MEDICARE, MEDICAID ==
--- NOTE | 2019-04-13 12:49 | REPMRS ---
Patient History The patient states she had a clinical breast exam in 03/2019. Patient is postmenopausal and is nulliparous. Family history of colorectal cancer at age 50 or over in maternal aunt, breast cancer at age 50 or over in paternal aunt. No Hormone Replacement Therapy 3D TOMOSYNTHESIS WAS PERFORMED. [facility] for [facility] cancer [facility] 10.1%. Digital Woman Screen Mammo: April 13, 2019 - Exam #: [id number] Bilateral CC and MLO view(s) were taken. Technologist: Poornima Joseph, Technologist Prior study comparison: April 10, 2018, bilateral digital woman screen mammo performed at [facility]. April 02, 2017, digital woman screen mammo performed at [facility]. FINDINGS: The breast tissue is extremely dense which could obscure a lesion on mammography. There has been no change in the appearance of the mammogram from the prior studies. There is a moderate amount of residual fibroglandular tissue which is fairly symmetric. There is no interval development of dominant mass, areas of architectural distortion, or clustered microcalcification typical of malignancy. Assessment: BI-RADS/ACR category 1 mammogram. Negative Mammogram. Recommendation Routine screening mammogram in 1 year (for women over age 40). This mammogram was interpreted with the aid of an FDA-approved computer-aided dectection system. Electronically Signed By: Avtar Brewster MD 04/13/19 [id number]
== END ==
LOC: M WHC 11:21
PROVIDERS: ATTEND Nurse Practitioner Family
DX: Z12.31 Encounter for screening mammogram for malignant neoplasm of breast (principal); Z78.0 Asymptomatic menopausal state
CPT/HCPCS: 77063; 77067; G0463

== ENCOUNTER 2019-06-08 05:59 | Inpatient (IN) | payer MEDICAID, MEDICARE ==
--- NOTE | 2019-05-29 13:54 | HPEPDOC ---
[facility] Medical History & Physical Date of Admission Jun 08, 2019 Date of Service: Jun 08, 2019 History and Physical Vascular surgery. Dr. Brown Primary care provider. Dr. Kirby. Cardiology. Dr. Mireles HPI: 68 year old female with a past medical history significant for severe end- stage peripheral vascular disease, bilateral lower extremity rest pain, no options for revascularization on the left lower extremity, with plan for revascularization procedure on the right lower extremity. The patient recently underwent arteriogram as per Dr. Brown of bilateral lower extremities with unsuccessful attempts at endovascular intervention. The left lower extremity has no options for open revascularization as reviewed by Dr. Brown. Plan for right lower extremity is to proceed with femoral to below-knee popliteal bypass with cadaver vein. The procedure, risks, and benefits have been previously discussed at length with the patient as per Dr. Brown at her office appointment 05/07/19. Informed consent has been placed on the chart. Medical clearance requested from Dr. Kirby, copies placed on the chart. Cardiac clearance with stress test from Dr. Mireles, copies placed on the chart. The patient reports no recent changes with her respiratory status. Denies any fevers, chills, Headache, Chest Pain, Shortness of breath, cough, palpitations, abdominal pain, N/V/D or changes in bowel or bladder habits. PMHx: PAD CAD/CABG 2014 Hypertension IDDM Peripheral neuropathy Adenopathy Dyslipidemia COPD Allergic rhinitis Rheumatoid arthritis Spinal stenosis/degenerative disc disease PSHX: Tubal ligation Right inguinal hernia repair Cervical discectomy Carpal tunnel release left 1987, right 1988 Bilateral cataract 2011 CABG 2014 Cardiac catheterization 3 Left femoral to anterior tibial artery bypass Dr. Davis 08/06 Arteriogram lower extremity 09/07, 04/09 Blepharoplasty SOCHX: Tobacco use: One half pack per day 46 years ETOH: Denies FAMHX: Mother: , CAD Father: , CAD/hypertension Siblings: One brother with CAD/hypertension. One sister with diabetes. ROS: As noted in HPI, otherwise 11pt ROS of systems reviewed and unremarkable. Patient reports her respiratory status is at her baseline. PE: GEN: 68 yo F, appears stated age. Thin appearing. No acute distress. Alert and oriented x 3. Pleasant, interactive. HEENT: Normocephalic, atraumatic. Moist mucous membranes. Dentition fair. CHEST: Regular rate and rhythm, +S1, +S2 LUNGS: Clear to auscultation bilaterally. No wheezes. ABD: Round, soft, non-tender, non-distended. EXT: DP/PT monophasic bilaterally. SKIN: [place], dry, warm. NEURO: Alert and oriented x 3. Cranial nerves III-XII are intact. No focal deficits appreciated. The patient ambulates with the assistance of a walker. Labs March 2019 indicate serum creatinine 0.95, GFR greater than 60, hemoglobin 11.7. Admission labs pending. A&P: 1. End-stage peripheral vascular disease with bilateral lower extremity rest pain. The patient is not felt to have any options for revascularization on the left l ower extremity. Plan is to proceed with right femoral to below-knee popliteal bypass with cadaver vein as per Dr. Brown. The patient has been advised to hold Plavix for 2 days prior to surgery and the day of surgery. Plan is to restart Plavix check late after surgery. Do not hold aspirin prior to surgery. Continue statin. Admission labs pending at this time. CBC, BMP, PT/INR, PTT, type and screen. Ancef 2 g IV preoperatively. 2. Tobacco use. Tobacco cessation is strongly reinforced. We have discussed and reviewed with the patient that any revascularization procedure performed is likely to fail if the patient continues to use tobacco products. Vital Signs Admission vital signs pending. Home Medications Scheduled Acetaminophen (Tylenol Arthritis) 650 Mg Tablet.er, 1,300 MG PO BID Aspirin (Aspirin EC) 81 Mg Tab, 81 MG PO DAILY Atorvastatin Calcium (Atorvastatin Calcium) 80 Mg Tab, 80 MG PO QHS Calcium Carbonate/Vitamin D3 (Calcium 1,000 + D3 Caplet) 1 Each Tablet, 1 TAB PO DAILY Clopidogrel Bisulfate (Plavix) 75 Mg Tab, 75 MG PO DAILY Gabapentin (Gabapentin) 100 Mg Cap, 100 MG PO TID Insulin Glargine (Lantus) 1 Units/0.01 Ml Susp, 11 UNITS SC DAILY Metoprolol Succinate (Metoprolol Succinate) 25 Mg Tab, 25 MG PO DAILY Multivitamins (Thera M Plus Tablet) 1 Tab Tab, 1 TAB PO DAILY Ramipril (Ramipril) 2.5 Mg Cap, 2.5 MG PO QHS Scheduled PRN Furosemide (Lasix) 40 Mg Tab, 40 MG PO DAILYPRN PRN for weight over 102# Nitroglycerin (Nitrostat) 0.4 Mg Subl, 0.4 MG SL PRN PRN for CHEST PAIN Allergies Coded Allergies: erythromycin base (Verified Allergy, Intermediate, rash, 12/31/18) risedronate sodium (Verified Adverse Reaction, Intermediate, BONE PAIN, 12/31/18) A-FIB/CHADSVASC A-FIB History Current/History of A-Fib/PAF?: No Current PO Anticoag Therapy: Sherri Hickman May 29, 2019 13:53
[2019-06-08] VITALS (10 sets, daily range): BP systolic 78–107; BP diastolic 42–57
[~2019-06-08] VITALS: Ht 144.8 cm; Wt 45.8 kg
[~2019-06-08 05:59] MED LIST changes: +TYLE650T35 PO
[2019-06-08] MEDS ORDERED: LR 1,000 ML IV ONE (06:00)
[2019-06-08] MEDS ORDERED: ceFAZolin SOD 2 GM in IV 1 EA IV ONE (06:00)
[2019-06-08 06:33] LABS: HEMOGLOBIN 13.1 g/dl (12.0-15.5); MEAN CORPUSCULAR VOLUME 96.9 fl (80.0-96.0); PLATELET COUNT, AUTOMATED 317 10^3/uL (150-450); RED BLOOD COUNT 4.23 10^6/uL (4.00-5.40); WHITE BLOOD COUNT 5.6 10^3/uL (4.0-10.0)
[2019-06-08 06:44] LABS: INR 1.04; PROTHROMBIN TIME 13.3 SECONDS (11.8-14.0)
[2019-06-08 06:45] LABS: PARTIAL THROMBOPLASTIN TIME 32.8 SECONDS (25.0-38.4)
[2019-06-08 07:00] LABS: ALBUMIN 3.5 GM/DL (3.2-5.2); ALT/SGPT 25 U/L (12-78); BILIRUBIN,TOTAL 0.4 MG/DL (0.2-1.0); BLOOD UREA NITROGEN 22 MG/DL (7-18); CALCIUM LEVEL 9.1 MG/DL (8.8-10.2); CARBON DIOXIDE LEVEL 31 MEQ/L (21-32); CHLORIDE LEVEL 107 MEQ/L (98-107); CREATININE FOR GFR 0.87 MG/DL (0.55-1.30); GLOMERULAR FILTRATION RATE > 60.0 (>45); GLUCOSE, FASTING 90 MG/DL (70-100); SODIUM LEVEL 142 MEQ/L (136-145); TOTAL PROTEIN 7.2 GM/DL (6.4-8.2)
[2019-06-08] MEDS ORDERED: MIDAZOLAM INJ 2 MG/2 ML VIAL (J2250) As Ordered ONE (07:07)
[2019-06-08] MEDS ORDERED: fentaNYL 250 MCG/5 ML INJECTION (J3010) As Ordered ONE (07:07)
[2019-06-08] MEDS ORDERED: LIDOCAINE 2% INJ 100 MG/5 ML SDV (FOR ANES.) As Ordered ONE (07:08)
[2019-06-08] MEDS ORDERED: propofoL 200 MG/20 ML VIAL As Ordered ONE (07:08)
[2019-06-08] MEDS ORDERED: ROCURONIUM BROMIDE 50 MG/5 ML VIAL As Ordered ONE ×2 (07:08→08:31)
[2019-06-08] MEDS ORDERED: dexameTHASONE 4 MG/ML 1ML VIAL (J1100) As Ordered ONE (07:08)
[2019-06-08] MEDS ORDERED: ONDANSETRON 4MG/2ML VIAL (J2405) As Ordered ONE (07:08)
[2019-06-08] MEDS ORDERED: BUPIVACAINE/EPIN 0.5% 30 ML VIAL As Ordered ONE (07:09)
[2019-06-08] MEDS ORDERED: THROMBIN SOLN 20,000 UNITS KIT As Ordered ONE (07:09)
[2019-06-08] MEDS ORDERED: HEPARIN SOD (PORCINE) 5000 UNITS/ML VIAL (J1644 PER 1000UNITS) As Ordered ONE ×5 (07:09→10:13)
[2019-06-08] MEDS ORDERED: ISOVUE-300 61% 50ML VIAL (Q9967) As Ordered ONE ×2 (07:10→07:14)
[2019-06-08] MEDS ORDERED: ePHEDrine SULFATE 25 MG/5 ML(5MG/ML) SYRINGE As Ordered ONE ×2 (08:43→08:48)
[2019-06-08] MEDS ORDERED: ACETAMINOPHEN 1000MG 100ML IV BTL (OFIRMEV) (J0131 PER 10MG) As Ordered ONE (08:54)
[2019-06-08] MEDS ORDERED: PHENYLephrine HCL 500 MCG/5 ML (100MCG/ML) SYRINGE (J2370) As Ordered ONE (10:28)
[2019-06-08] MEDS ORDERED: SUGAMMADEX SODIUM 500 MG/5 ML VIAL (BRIDION) As Ordered ONE (10:36)
[2019-06-08] MEDS ORDERED: KETOROLAC 60 MG/2 ML VIAL (J1885) As Ordered ONE (11:09)
--- NOTE | 2019-06-08 12:20 | ROOPDOC ---
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 Ultrasound-guided placement of right radial arterial line 2. Right femoral endarterectomy with Xenosure patch angioplasty 3. Right femoral to below-knee popliteal bypass with cadaver vein SURGEON: Marito Brown MD ANESTHESIA: Gen. anesthesia and local INDICATION FOR PROCEDURE: This is a very pleasant 68-year-old patient with severe peripheral vascular disease due to Buerger's disease and heavy tobacco use history. She has quit smoking. She has lifestyle limiting short distance claudication in the right lower extremity and rest pain. She did not have an endovascular option for revascularization of her chronic total occlusion of the entire superficial femoral artery, and thus we talked about the option for femoral-popliteal bypass. The patient had her saphenous vein harvested for CABG and does not have saphenous vein on contralateral leg either. Therefore, we discussed the risks benefits alternatives to cadaver vein bypass. The patient does have a history of failed cadaver vein bypass on the left leg, but she was still smoking, and she had less outflow than she has on this leg. On the right, she has two-vessel outflow and she also has retrograde flow through the popliteal above the knee into the collaterals of the thigh. There is a stenosis in the mid popliteal artery, and that's why we chose to do a below-knee versus an above-knee bypass, but there is still flow through the area and thus I feel she will get some retrograde flow as well. Hopefully this will be enough outflow to keep the bypass open. After lengthy discussion, the patient was agreeable to proceed. She is deemed an intermediate cardiac risk by cardiology, and is optimized from their standpoint. We will proceed with right lower extremity femoropopliteal bypass. REPORT OF OPERATION: The patient was brought the operating room in stable condition. General anesthesia and antibiotics were administered without co mplication. Her right upper extremity was prepped in a sterile fashion and ultrasound was used to guide access for right arterial line placement. There was good waveform and the line was secured in place with a sterile dressing with [place]an over the skin. Her right groin and circumferential right lower extremity were prepped and draped in a sterile fashion. A timeout was performed. An oblique incision was made in the right groin somewhat distal to her previous hernia incision just above the inguinal ligament. This was carried down to the subcutaneous tissues Bovie cautery. Extensive lymph nodes were identified and carefully preserved to minimize disruption of the lymph channels. Bridging veins were suture ligated and divided. The femoral sheath was opened and the vessels were skeletonized proximally and distally. 2 profundas were identified and Vesseloops were placed. A vessel loop was also placed around the superficial femoral artery. The common femoral artery was heavily calcified and had a minimal amount of pulsatility. We dissected proximally to a softer place on the artery were clearly can be safely placed. Next, an incision was made on the medial calf just below the knee and carried down to the subcutaneous tissue with Bovie cautery. The fascia was incised and the muscle was retracted posteriorly to expose the popliteal vein and artery. The artery was skeletonized proximally and distally. It was somewhat calcified, but not to the degree of the common femoral artery and I felt it would be suitable for bypass. Next, Vesseloops were placed proximally and distally on the popliteal artery. 5000 units of heparin was given by anesthesia and allowed to circulate. We then returned to the right femoral vessels and the clamp was placed proximally and the Vesseloops were secured distally. An arteriotomy was made and extended with a pot scissors over the proximal SFA and up to the circumflex vessels. We then carefully teased out the near occlusive heavy calcified plaque in the common femoral artery, and the origins of the profundus and the SFA. We spent a bit of time removing all loose intima and debris from the vessel. The plaque was sent for pathology. We irrigated with heparinized saline and additional loose debris was carefully removed. Once we were satisfied with the endarterectomy, Xenosure patch was anastomosed to arteriotomy with 5-0 Prolene suture in a running fashion. Before the final sutures were placed, we flushed the inflow and outflow for the artery, and flushed with heparinized saline. The final sutures were placed. Flow was restored in good hemostasis was noted. We then tunneled the cadaver vein along the medial thigh in the anatomic location of the saphenous vein. Following this, we gave an additional 1500 units of heparin and allow this to circulate. We rep laced the clamp on the common femoral artery and resecure the Vesseloops. An arteriotomy was made in the patch from the endarterectomy. We beveled the and of the cadaver vein and anastomosis the vein and an end-to-side fashion to the common femoral artery patch. Before the final sutures are placed, we flushed the inflow and outflow and irrigated with heparinized saline. We then placed her final sutures inflow was restored. Good hemostasis was noted. We then allowed the entire vein to fill and pressurize for 3 minutes. We were then able to identify the correct length for our distal anastomosis and make sure there was no twist returns in the vein. The vein was marked. A bulldog clamp was placed on the vein at the knee and the distal vein was irrigated with heparinized saline. We beveled the end of the vein and secured the Vesseloops and the popliteal artery. An arteriotomy was made in the vein was anastomosed to the artery and an end-to-side fashion with a running 6-0 Prolene suture. Before the final sutures are placed, we flushed the inflow and outflow and flushed through the vein, and then irrigated with heparinized saline. We then placed her final sutures inflow was restored. Good hemostasis was noted. There was an excellent pulse in the common femoral artery, in the bypass graft, and in the popliteal artery. Doppler was used to confirm flow in the proximal and distal popliteal artery, in the bypass and both were triphasic. There is also triphasic flow into the profunda. We irrigated both incisions with copious amounts of normal saline. At the groin, local anesthesia was used in the skin and subcutaneous tissues and then the fascia was closed in 3 layers with running Vicryl suture. The deep dermal layer was approximated with interrupted Vicryl suture and the skin was closed with skin hector. At the knee, tissue is carefully closed over the vein to protect the bypass, and the fascia more distally was closed with running Vicryl suture. We then closed an additional layer of Vicryl suture, and then the deep dermal layer was approximated with interrupted Vicryl suture. [place] were used to close the skin. Both incisions were clean and dried and dressed with 4 x 4's and Tegaderms. The patient was then allowed to awaken from anesthesia and was taken to PACU in stable condition. ESTIMATED BLOOD LOSS: Approximately 50 mL. SPECIMENS: Right femoral plaque sent for pathology DRAINS: None COMPLICATIONS: None. PLAN: The patient will return to the floor and we will admit to the hospitalist service. We will plan to discontinue the Patricia catheter in the morning. We will discontinue the arterial line in recovery. We will keep her on bed rest overnig ht and then advance activity as tolerated tomorrow. PT OT as needed. Regular diet tonight. We will restart Plavix tonight and resume regular dosing in the morning. Plan for discharge home in 2-4 days depending on recovery. MARITO BROWN MD Jun 08, 2019 12:20
[2019-06-08] MEDS ORDERED: PERCOCET 5MG/325MG TAB PO PRN ×2 (12:30→12:45)
[2019-06-08] MEDS ORDERED: diazePAM 5 MG TAB PO PRN (12:30)
[2019-06-08] MEDS ORDERED: ONDANSETRON 4MG/2ML VIAL (J2405) IV PRN (12:45)
[2019-06-08] MEDS ORDERED: LR 1,000 ML IV SCH (12:45)
[2019-06-08] MEDS ORDERED: MORPHINE 2 MG/ML 1ML VIAL (J2270) IV PRN (12:45)
[2019-06-08] MEDS ORDERED: fentaNYL 100 MCG/2 ML INJECTION (J3010) IV PRN (12:45)
[2019-06-08] MEDS ORDERED: CLOPIDOGREL 75 MG TAB PO ONE (13:00)
[2019-06-08] MEDS ORDERED: METOCLOPRAMIDE INJ 10MG/2ML VIAL (J2765) IV PRN (13:00)
[2019-06-08] MEDS ORDERED: NITROGLYCERIN 0.4 MG SUBL TABLET SL PRN (13:15)
[2019-06-08] MEDS ORDERED: GLUCOSE 4 GM CHEW TABLET PO PRN (14:15)
[2019-06-08] MEDS ORDERED: GLUCAGON FOR INJ 1 MG VIAL (J1610) SC PRN (14:15)
[2019-06-08] MEDS ORDERED: DEXTROSE 50% 50 ML SYRINGE IV PRN (14:15)
[2019-06-08] MEDS ORDERED: MAALOX 30 ML SUSP *UDC PO PRN (14:15)
[2019-06-08] MEDS ORDERED: ACETAMINOPHEN TAB 650MG DOSE (2X325MG) PO PRN (14:15)
[2019-06-08] MEDS ORDERED: MOM 30ML SUSPENSION UDC PO PRN (14:15)
--- NOTE | 2019-06-08 14:23 | HPEPDOC ---
General Date of Admission Jun 08, 2019 at 05:59 Date of Service: Jun 08, 2019 Primary Care Physician: Ayaan Kirby MD Chief Complaint The patient is a 68-year-old white female admitted with a reason for visit of Atherosclerosis Of [place] Vessels. Source: Patient Exam Limitations: No limitations Timing/Duration: Other Severity: Other (heart applicable) Associated Symptoms: Other (applicable) History of Present Illness 68 years old female white female with past medical history of severe end-stage peripheral vascular disease, bilateral lower extremity pain on rest, CAD, PAD, hypertension, IDDM, peripheral neuropathy, adenopathy, dyslipidemia, COPD, allergic rhinitis, rheumatoid arthritis, spinal stenosis, was directly admitted from the OR to PCU by After she had a right femoral to below-knee popliteal bypass with cadaver when on right side. Patient is being admitted for clinical observation, pain management, bed rest. Patient is comfortable in no from distress. Offers no new complaints Home Medications Scheduled Acetaminophen (Tylenol Arthritis) 650 Mg Tablet.er, 1,300 MG PO BID, (Reported) Aspirin (Aspirin EC) 81 Mg Tab, 81 MG PO DAILY, (Reported) Atorvastatin Calcium (Atorvastatin Calcium) 80 Mg Tab, 80 MG PO QHS, (Reported) Calcium Carbonate/Vitamin D3 (Calcium 1,000 + D3 Caplet) 1 Each Tablet, 1 TAB PO DAILY, (Reported) Clopidogrel Bisulfate (Plavix) 75 Mg Tab, 75 MG PO DAILY, (Reported) Gabapentin (Gabapentin) 100 Mg Cap, 100 MG PO TID, (Reported) Insulin Glargine (Lantus) 1 Units/0.01 Ml Susp, 11 UNITS SC DAILY, (Reported) Metoprolol Succinate (Metoprolol Succinate) 25 Mg Tab, 25 MG PO DAILY, (Reported) Multivitamins (Thera M Plus Tablet) 1 Tab Tab, 1 TAB PO DAILY, (Reported) Ramipril (Ramipril) 2.5 Mg Cap, 2.5 MG PO QHS, (Reported) Scheduled PRN Furosemide (Lasix) 40 Mg Tab, 40 MG PO DAILYPRN PRN for weight over 102#, (Rep orted) Nitroglycerin (Nitrostat) 0.4 Mg Subl, 0.4 MG SL PRN PRN for CHEST PAIN, (Reported) Allergies Coded Allergies: erythromycin base (Verified Allergy, Intermediate, rash, 12/31/18) risedronate sodium (Verified Adverse Reaction, Intermediate, BONE PAIN, 12/31/18) Past Medical History Medical History 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, hyperlipidemia, colonic polyp, hyperplastic only, rheumatoid arthritis, which is seronegative, severe osteoporosis, vertebral compression fractures, moderate spinal stenosis, CABG, four-vessel with the EF of 25%, by tomorrow repair annuloplasty of racing, CABG, left common iliac artery angioplasty, right common iliac artery angioplasty Surgical History Tubal ligation, hernia repair, right inguinal, cervical, cholecystectomy, left and right carpal tunnel, ganglion cyst removal, cataract surgery, CABG 4, while annuloplasty, stent and left leg, left femoral to anterior tibial artery bypass, blepharoplasty on both eyes, bilateral inguinal hernia repair, left, iliac artery stenting, left femoral to anterior tibial artery bypass graft, left leg SMC artery stent Family History Father had an ND. Mother had a stroke Social History * Smoker: former Smoker Alcohol: Denies Drugs: denies A-FIB/CHADSVASC A-FIB History Current/History of A-Fib/PAF?: No Review of Systems Constitutional: Denies: Chills, Fever, Malaise, Night Sweats, Weakness, Fatigue, Weight Loss, Lethargy, Other Eyes: Denies: Pain, Vision change, Conjunctivae inflammation, Eyelid inflammation, Redness, Other ENT: Denies: Head Aches, Ear Pain, Dysphagia, Sinus Congestion, Post Nasal Drip, Sore Throat, Epistaxis, Other Symptoms Skin: Denies: Rash, Lesions, Jaundice, Bruising, Itching, Dry, Breakdown, Nail Changes, Other Pulmonary: Denies: Dyspnea, Cough, Pleuritic Chest Pain, Other Symptoms Cardiovascular: Denies: Chest Pain, Palpitations, Orthopnea, Paroxysmal Noc. Dyspnea, Edema, Lt Headedness, Other Symptoms Gastrointestinal: Denies: Nausea, Vomiting, Abdominal Pain, Diarrhea, Constipation, Melena, Hematochezia, Other Symptoms Genitourinary: Denies: Dysuria, Frequency, Incontinence, Hematuria, Retention, Other Symptoms Hematologic: Denies: Bruising, Bleeding Excessively, Petecchia, Purpura, Enlarged Lymph Nodes, Other Hematologic Endocrine: Denies: Polydipsia, Polyphagia, Polyuria, Heat Intolerance, Cold Intolerance, Other Endocrine Sx Musculoskeletal: Denies: Neck Pain, Back Pain, Shoulder Pain, Arm Pain, Hand Pain, Leg Pain, Foot Pain, Joint Pain, Muscle Pain, Spasms, Other Symptoms Neurological: Denies: Weakness, Numbness, Incoordination, Change in speech, Confusion, Seizures, Other Symptoms Psych: Denies: Mood Normal, Anxiety, Depression, Memory Issues, Thoughts of Self Harm, Anger, Thoughts of Harming Other, Other Psych Physical Examination General Exam: Positive: Alert, Cooperative Eye Exam: Positive: Conjunctiva & lids normal ENT Exam: Positive: Atraumatic Neck Exam: Positive: Supple Chest Exam: Positive: Normal air movement Heart Exam: Positive: Rate Normal, Normal S1 Abdomen Exam: Positive: Normal bowel sounds, Soft Extremity Exam: Positive: Normal pulses Skin Exam: Positive: Nl turgor and temperature Neuro Exam: Positive: Strength at 5/5 X4 ext, Cranial Nerves 3-12 NL Psych Exam: Positive: Mental status NL, Oriented x 3 Vital Signs Vital Signs Date Time Temp Pulse Resp B/P (MAP) Pulse Ox O2 Delivery O2 Flow Rate FiO2 06/08/19 13:04 97.5 80 18 101/53 (69) 100 Nasal Cannula 2 Laboratory Data Labs 24H Laboratory Tests 2 06/08/19 06:17: Nucleated Red Blood Cells % (auto) 0.0, Prothrombin Time 13.3, Prothromb Time International Ratio 1.04, Activated Partial Thromboplast Time 32.8, Anion Gap 4L, Glomerular Filtration Rate > 60.0, Calcium Level 9.1, Total Bilirubin 0.4, Aspartate Amino Transf (AST/SGOT) 17, Alanine Aminotransferase (ALT/SGPT) 25, Alkaline Phosphatase 70, Total Protein 7.2, Albumin 3.5, Albumin/Globulin Ratio 0.95L 06/08/19 07:09: Bedside Glucose (Misc Panel) 80 CBC/BMP Laboratory Tests 06/08/19 06:17 Problems (1) Lower limb ischemia Status: Acute Problem Text: 68 years old lady with past medical history of 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 Patient was taken to or by Dr. Laguna and had ultrasound-guided placement of right radial artery line, right femoral endarterectomy with xenosure patch angioplasty, right femoral to below-knee popliteal bypass with cadaver vein. Pt will be admitted to med/tele for further observation and postop care. Patient had been started on Plavix. I will also continue her home medications including aspirin She'll be bed rest tonight and hopefully will be out of bed once cleared by vascular surgery in a.m. Consistent carbohydrate diet DVT prophylaxis as per vascular surgery CBC, CMP in a.m. Continue all home meds We'll also start a fingerstick blood sugar every before meals and at bedtime with coverage (2) COPD (chronic obstructive pulmonary disease) Status: Chronic Problem Text: Continue home meds (3) CAD (coronary artery disease) Status: Chronic Problem Text: Continue home meds (4) Hypertension, essential Status: Chronic Problem Text: Continue home meds (5) Diabetes mellitus type 2, insulin dependent Status: Chronic Problem Text: Fingerstick blood sugar every before meals and at bedtime with insulin coverage (6) Hypercholesteremia Status: Chronic Problem Text: Continue home meds Plan / VTE VTE Prophylaxis Ordered?: Yes SUKUMAR SALES MD Jun 08, 2019 14:23
[2019-06-08] MEDS: GABAPENTIN 100 MG CAP PO SCH ×2 (14:37→21:33)
[2019-06-08] MEDS: HumaLOG INSULIN (NovoLOG) PER UNIT SC SCH ×2 (17:33→21:00)
[2019-06-08] MEDS: ramipriL 1.25 MG CAP PO SCH (21:00)
[2019-06-08] MEDS: ATORVASTATIN 20 MG TAB PO SCH (21:37)
[2019-06-09 06:00] VITALS: BP 90/48
[2019-06-09 06:21] LABS: HEMATOCRIT 31.1 % (36.0-47.0); MEAN CORPUSCULAR HEMOGLOBIN 31.3 pg (27.0-33.0); MEAN CORPUSCULAR HGB CONC 32.2 g/dl (32.0-36.5); MEAN CORPUSCULAR VOLUME 97.5 fl (80.0-96.0); PLATELET COUNT, AUTOMATED 244 10^3/uL (150-450); RED BLOOD COUNT 3.19 10^6/uL (4.00-5.40); WHITE BLOOD COUNT 7.4 10^3/uL (4.0-10.0)
[2019-06-09 06:43] LABS: ALBUMIN 2.9 GM/DL (3.2-5.2); BILIRUBIN,TOTAL 0.5 MG/DL (0.2-1.0); CALCIUM LEVEL 8.8 MG/DL (8.8-10.2); CREATININE FOR GFR 1.16 MG/DL (0.55-1.30); GLOMERULAR FILTRATION RATE 49.6 (>45); MAGNESIUM LEVEL 2.2 MG/DL (1.8-2.4); POTASSIUM SERUM 5.3 MEQ/L (3.5-5.1); TOTAL PROTEIN 6.2 GM/DL (6.4-8.2)
[2019-06-09] MEDS: METOPROLOL SUCC *XL* 25MG TAB (TopROL *XL*) PO SCH (07:45)
[2019-06-09] MEDS: GABAPENTIN 100 MG CAP PO SCH ×3 (08:22→22:03)
[2019-06-09] MEDS: ASPIRIN 81 MG ENTERIC TAB PO SCH (08:22)
[2019-06-09] MEDS: HumaLOG INSULIN (NovoLOG) PER UNIT SC SCH ×4 (08:22→21:00)
[2019-06-09] MEDS ORDERED: LACTATED RINGER'S 1000 ML IV ONE (08:30)
--- NOTE | 2019-06-09 08:32 | IPNPDOC ---
Subjective Date Seen The patient was seen on 06/09/19. Subjective Chief Complaint/HPI some ache in right calf, otherwise no c/o today Constitutional: Denies: Chills ENT: Denies: Head Aches Skin: Denies: Rash Pulmonary: Denies: Dyspnea, Cough Cardiovascular: Denies: Chest Pain, Palpitations Gastrointestinal: Denies: Nausea, Abdominal Pain Genitourinary: Denies: Dysuria Hematologic: Denies: Bruising, Petecchia Endocrine: Denies: Polydipsia, Polyuria Musculoskeletal: Denies: Neck Pain, Back Pain Neurological: Denies: Weakness, Numbness Psych: Reports: Mood Normal Objective Physical Examination General Exam: Positive: Alert, Cooperative Eye Exam: Positive: Conjunctiva & lids normal ENT Exam: Positive: Atraumatic Neck Exam: Positive: Supple Chest Exam: Positive: Normal air movement, Rhonchi (late inspiratory squeaks noted bilaterally) Heart Exam: Positive: Rate Normal, Normal S1 Abdomen Exam: Positive: Normal bowel sounds, Soft; Negative: Tenderness Extremity Exam: Positive: Normal pulses, Other (indicates ache in right calf but no induration, no redness. no pain increase with compression.) Skin Exam: Positive: Nl turgor and temperature (toes on right foot are warm, pink, with brisk capillary refill.) Neuro Exam: Positive: Strength at 5/5 X4 ext, Cranial Nerves 3-12 NL Psych Exam: Positive: Mental status NL, Oriented x 3 Assessment /Plan Problems (1) Lower limb ischemia Status: Acute Response to Treatment: Improving Problem Text: s/p right lower leg revascularization with cadaver graft. management per Dr. Brown. (2) Hypertension, essential Status: Chronic Response to Treatment: Stable Problem Text: pressures are a little low here in hospital. will recommend hold parameters. PO intake overnight has been minimal. will resume IV lactated ringers at 75 cc/ hour until convinced that po intake is adequate and pressures improve. (3) Diabetes mellitus type 2, insulin dependent Status: Chronic Response to Treatment: Stable Problem Text: her Lantus has been held since admission. She has no trouble eating, so will resume long acting insulin at reduced dose. She usually takes 11 units, will restart 6 at her usual dose time.continue monitoring. continue SS Novolog. Plan/VTE VTE Prophylaxis Ordered?: No VTE Exclusion Mechanical Proph: [place] Lower Ex Ischemia Plan IVF: Initiate (Until po intake improves and pressures are back to baseline which is just over 100 systolic) Respiratory: Other Respiratory (Incentive Spirometry) VS, I&O, 24H, Fishbone Vital Signs/I&O Vital Signs Date Time Temp Pulse Resp B/P (MAP) Pulse Ox O2 Delivery O2 Flow Rate FiO2 06/09/19 07:45 60 90/48 06/09/19 06:00 97.6 18 97 Nasal Cannula 2.0 I&O- Last 24 Hours up to 6 AM 06/09/19 06:00 Intake Total 2350 ml Output Total 925 ml Balance 1425 ml Laboratory Data 24H LABS Laboratory Tests 2 06/08/19 16:29: Bedside Glucose (Misc Panel) 219H 06/08/19 20:29: Bedside Glucose (Misc Panel) 173H 06/09/19 05:41: Nucleated Red Blood Cells % (auto) 0.0, Anion Gap 3L, Glomerular Filtration Rate 49.6, Calcium Level 8.8, Magnesium Level 2.2, Total Bilirubin 0.5, Aspartate Amino Transf (AST/SGOT) 16, Alanine Aminotransferase (ALT/SGPT) 16, Alkaline Phosphatase 59, Total Protein 6.2L, Albumin 2.9L, Albumin/Globulin Ratio 0.88L CBC/BMP Laboratory Tests 06/09/19 05:41 Carlos Moon MD Jun 09, 2019 08:32
--- NOTE | 2019-06-09 08:56 | IPNPDOC ---
Text Note Date of Service The patient was seen on 06/09/19. NOTE Vascular surgery. Dr. Brown The pt is a 68 year old female with a past medical history significant for severe end-stage peripheral vascular disease, bilateral lower extremity rest pain, no options for revascularization on the left lower extremity, POD1 Right femoral to below-knee popliteal bypass with cadaver vein. The patient has been up out of bed to the bathroom, ambulating in the room. Up to the chair. States she is eating and drinking. States pain is controlled. Thin appearing. No acute distress. Alert and oriented x 3. The patient's right groin incision dressing is removed, the wound is thoroughly cleaned and dry dressing is replaced. There is no drainage or bleeding. David are intact. Wound over the lower right extremity is also thoroughly cleaned, there is no drainage or bleeding. David are intact. Dry dressings are replaced. Strong DP/PT signal is noted right lower extremity. The foot is warm to touch. The patient ambulates with the assistance of a walker. End-stage peripheral vascular disease with bilateral lower extremity rest pain. POD1 right femoral to below-knee popliteal bypass with cadaver vein as per Dr. Brown. The patient is not felt to have any options for revascularization on the left lower extremity. Continue aspirin 81 mg daily, Plavix 75 mg daily. Continue statin. Tobacco cessation is strongly reinforced. We have discussed and reviewed with the patient that any revascularization procedure performed is likely to fail if the patient continues to use tobacco products. ADDENDUM: Reviewed with Dr Brown. 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 We would like to be extra cautious as the pt has limited options if this bypass fails. Plan to continue with full AC lifelong. DC Plavix after today's dose and continue with ASA 81 mg daily. VS,Fishbone, I+O VS, Fishbone, I+O Laboratory Tests 06/09/19 05:41 Vital Signs Date Time Temp Pulse Resp B/P (MAP) Pulse Ox O2 Delivery O2 Flow Rate FiO2 06/09/19 07:45 60 90/48 06/09/19 06:00 97.6 18 97 Nasal Cannula 2.0 I&O- Last 24 Hours up to 6 AM 2/18/20 06:00 Intake Total 2350 ml Output Total 925 ml Balance 1425 ml Sherri Barahona Jun 09, 2019 08:56
[2019-06-09] MEDS ORDERED: CLOPIDOGREL 75 MG TAB PO SCH (09:00)
[2019-06-09] MEDS: LR 1,000 ML IV SCH ×2 (09:40→22:04)
[2019-06-09] MEDS: LEVEMIR (INSULIN DETEMIR) 1 UNITS/0.01ML SC SCH (09:40)
[2019-06-09 10:00] VITALS: BP 94/47
[2019-06-09] MEDS: PERCOCET 5MG/325MG TAB PO PRN (11:35)
[2019-06-09 14:00] VITALS: BP 97/54
[2019-06-09 22:00] VITALS: BP 128/50
[2019-06-09] MEDS: ramipriL 1.25 MG CAP PO SCH (22:03)
[2019-06-09] MEDS: APIXABAN 5 MG TAB (ELIQUIS) PO SCH (22:03)
[2019-06-09] MEDS: ATORVASTATIN 20 MG TAB PO SCH (22:04)
[2019-06-09] MEDS: HYDROmorphone 2 MG TAB PO PRN (22:17)
[2019-06-10 00:22] VITALS: BP 155/70
[2019-06-10 06:00] VITALS: BP 117/54
[2019-06-10] MEDS: HYDROmorphone 2 MG TAB PO PRN (06:13)
--- NOTE | 2019-06-10 07:33 | IPNPDOC ---
Date Seen The patient was seen on 06/10/19. Progress Note Patient seen and examined, and is doing well postop day 2 status post right below-knee pop bypass with cadaver vein. Overnight, she said she did have a little bit of pain which was controlled with analgesia and some insomnia which was controlled with Valium. She did well otherwise. She has had no trouble eating or getting up and around with her walker. Her urine output was a bit low and IV fluids were started yesterday by Dr. Moon, and her urine output is excellent over the last 24 hours and likely her fluids could be DC'd today. We'll try to get her up in the shower today if she feels up to it, otherwise we'll do this in the morning. I discussed with her that if she continues to do well we can likely send her home tomorrow. She is agreeable to this plan. On exam, she is afebrile and vitals are stable. Her right groin and right leg incisions are clean dry and intact with scant drainage on the dressings. Will change these later today when she is back in bed. She has scant swelling in her leg. She has a strong Doppler signal signal over the bypass and her distal signals are biphasic. Her foot is warm and well-perfused. Plan: Continue her postoperative care today, increase her ambulation as tolerated, shower if tolerated PT OT if needed but otherwise okay to ambulate with nursing assist. Recommend DC telemetry, DC IV fluids if Dr. Moon is agreeable. Analgesia when necessary, wean her off the Dilaudid as we will send her home with Percocet only. Dilaudid for breakthrough pain only. Encourage PO diet and fluids. Patient needs protein for healing. Potential discharge tomorrow depending on clinical status. VS, I&O, 24H, Simonbone Vital Signs/I&O Vital Signs Date Time Temp Pulse Resp B/P (MAP) Pulse Ox O2 Delivery O2 Flow Rate FiO2 06/10/19 06:13 14 06/10/19 06:00 98.2 80 117/54 (75) 98 Room Air 06/09/19 06:00 2.0 I&O- Last 24 Hours up to 6 AM 06/10/19 06:00 Intake Total 2140 ml Output Total 2450 ml Balance -310 ml Laboratory Data 24H LABS Laboratory Tests 2 06/09/19 11:36: Bedside Glucose (Misc Panel) 131H 06/09/19 16:33: Bedside Glucose (Misc Panel) 116H 06/09/19 20:29: Bedside Glucose (Misc Panel) 41L 06/10/19 05:42: Bedside Glucose (Misc Panel) 386H MARITO WANG MD Jun 10, 2019 07:33
[2019-06-10] MEDS: PERCOCET 5MG/325MG TAB PO PRN ×2 (08:22→12:34)
[2019-06-10] MEDS: HumaLOG INSULIN (NovoLOG) PER UNIT SC SCH ×3 (08:23→16:36)
[2019-06-10] MEDS: GABAPENTIN 100 MG CAP PO SCH ×3 (08:23→21:21)
[2019-06-10] MEDS: LEVEMIR (INSULIN DETEMIR) 1 UNITS/0.01ML SC SCH (08:23)
[2019-06-10] MEDS: ASPIRIN 81 MG ENTERIC TAB PO SCH (08:24)
[2019-06-10] MEDS: APIXABAN 5 MG TAB (ELIQUIS) PO SCH ×2 (08:24→21:21)
[2019-06-10] MEDS: METOPROLOL SUCC *XL* 25MG TAB (TopROL *XL*) PO SCH (08:25)
--- NOTE | 2019-06-10 09:24 | IPNPDOC ---
Subjective Date Seen The patient was seen on 06/10/19. Subjective Chief Complaint/HPI had right leg swelling develop yesterday, now improving. hypoglycemic episode yesterday pm then she thinks she over reacted with apple juice, etc. and sugar high this am. Constitutional: Denies: Chills ENT: Denies: Head Aches Pulmonary: Denies: Dyspnea, Cough Cardiovascular: Denies: Chest Pain, Orthopnea Gastrointestinal: Denies: Nausea, Abdominal Pain Hematologic: Denies: Bruising, Bleeding Excessively, Petecchia Musculoskeletal: Reports: Other Symptoms (right calf discomfort less and swelling less she reports.); Denies: Neck Pain Psych: Reports: Mood Normal Objective Physical Examination General Exam: Positive: Alert, Cooperative Eye Exam: Positive: Conjunctiva & lids normal ENT Exam: Positive: Atraumatic Neck Exam: Positive: Supple Chest Exam: Positive: Normal air movement, Rhonchi (late inspiratory squeaks noted bilaterally) Heart Exam: Positive: Rate Normal, Normal S1 Abdomen Exam: Positive: Normal bowel sounds, Soft; Negative: Tenderness Extremity Exam: Positive: Normal pulses, Other (calf is soft, non-tender, some edema still which developed during the day yesterday, but improved this am) Skin Exam: Positive: Nl turgor and temperature (toes on right foot are warm, pink, with brisk capillary refill.) Neuro Exam: Positive: Strength at 5/5 X4 ext, Cranial Nerves 3-12 NL Psych Exam: Positive: Mental status NL, Oriented x 3 Assessment /Plan Problems (1) Lower limb ischemia Status: Acute Response to Treatment: Improving Problem Text: s/p right lower leg revascularization with cadaver graft. management per Dr. Brown. (2) Hypertension, essential Status: Chronic Response to Treatment: Stable Problem Text: 06/10: IV fluids stopped. pressures are a little low here in hospital. will recommend hold parameters. PO intake overnight has been minimal. will resume IV lactated ringers at 75 cc/ hour until convinced that po intake is adequate and pressures improve. (3) Diabetes mellitus type 2, insulin dependent Status: Chronic Response to Treatment: Stable Problem Text: 06/10: she was hypoglycemic yesterday pm. Even with the reduced dose of Lantus plus novolog SS. Had I been alerted, I would have reduced her morning Lantus dose today, but it has been given again at 6 units. her Lantus has been held since admission. She has no trouble eating, so will resume long acting insulin at reduced dose. She usually takes 11 units, will restart 6 at her usual dose time.continue monitoring. continue SS Novolog. Plan/VTE VTE Prophylaxis Ordered?: Yes (she is now on Eliquis and asa at recommendation of Vascular Surgeon Dr. Brown) Plan IVF: Initiate (Until po intake improves and pressures are back to baseline which is just over 100 systolic) Respiratory: Other Respiratory (Incentive Spirometry) VS, I&O, 24H, Fishbone Vital Signs/I&O Vital Signs Date Time Temp Pulse Resp B/P (MAP) Pulse Ox O2 Delivery O2 Flow Rate FiO2 06/10/19 08:52 18 Room Air 06/10/19 08:25 81 117/46 06/10/19 06:00 98.2 98 06/09/19 06:00 2.0 I&O- Last 24 Hours up to 6 AM 06/10/19 06:00 Intake Total 2140 ml Output Total 2450 ml Balance -310 ml Laboratory Data 24H LABS Laboratory Tests 2 06/09/19 11:36: Bedside Glucose (Misc Panel) 131H 06/09/19 16:33: Bedside Glucose (Misc Panel) 116H 06/09/19 20:29: Bedside Glucose (Misc Panel) 41L 06/10/19 05:42: Bedside Glucose (Misc Panel) 386H Carlos Moon MD Jun 10, 2019 09:24
[2019-06-10 09:54] LABS: HEMATOCRIT 35.2 % (36.0-47.0); HEMOGLOBIN 11.4 g/dl (12.0-15.5); MEAN CORPUSCULAR HEMOGLOBIN 31.8 pg (27.0-33.0); MEAN CORPUSCULAR HGB CONC 32.4 g/dl (32.0-36.5); MEAN CORPUSCULAR VOLUME 98.3 fl (80.0-96.0); PLATELET COUNT, AUTOMATED 285 10^3/uL (150-450); RED BLOOD COUNT 3.58 10^6/uL (4.00-5.40); WHITE BLOOD COUNT 6.3 10^3/uL (4.0-10.0)
[2019-06-10 10:29] LABS: CREATININE FOR GFR 1.22 MG/DL (0.55-1.30); GLOMERULAR FILTRATION RATE 46.8 (>45); POTASSIUM SERUM 3.9 MEQ/L (3.5-5.1)
[2019-06-10 14:00] VITALS: BP 112/57
[2019-06-10] MEDS: ATORVASTATIN 20 MG TAB PO SCH (21:21)
[2019-06-10] MEDS: ramipriL 1.25 MG CAP PO SCH (21:22)
[2019-06-10 22:00] VITALS: BP 103/53
[2019-06-11 06:00] VITALS: BP 116/53
[2019-06-11 08:36] VITALS: BP 108/80
[2019-06-11] MEDS: APIXABAN 5 MG TAB (ELIQUIS) PO SCH (08:36)
[2019-06-11] MEDS: METOPROLOL SUCC *XL* 25MG TAB (TopROL *XL*) PO SCH (08:36)
[2019-06-11] MEDS: ASPIRIN 81 MG ENTERIC TAB PO SCH (08:37)
[2019-06-11] MEDS: GABAPENTIN 100 MG CAP PO SCH (08:37)
[2019-06-11] MEDS: PERCOCET 5MG/325MG TAB PO PRN (08:38)
[2019-06-11] MEDS ORDERED: ELIQ5TAB PO (08:51)
[2019-06-11] MEDS ORDERED: LEVEMIR (INSULIN DETEMIR) 1 UNITS/0.01ML SC SCH ×2 (09:00)
--- NOTE | 2019-06-11 13:57 | IPNPDOC ---
Text Note Date of Service The patient was seen on 06/11/19. NOTE Vascular surgery. Dr. Brown The pt is a 68 year old female with a past medical history significant for severe end-stage peripheral vascular disease, bilateral lower extremity rest pain, no options for revascularization on the left lower extremity, POD3 Right femoral to below-knee popliteal bypass with cadaver vein. Thin appearing. No acute distress. Alert and oriented x 3. The patient has strong DP/PT signal is noted right lower extremity. The foot is warm to touch. The patient ambulates with the assistance of a walker. End-stage peripheral vascular disease with bilateral lower extremity rest pain. POD3 right femoral to below-knee popliteal bypass with cadaver vein as per Dr. Brown. The patient is not felt to have any options for revascularization on the left lower extremity. Continue aspirin 81 mg daily, Continue with Eliquis 5 mg by mouth twice a day and continue long-term. Continue statin. Tobacco cessation is strongly reinforced. We have discussed and reviewed with the patient that any revascularization procedure performed is likely to fail if the patient continues to use tobacco products. Tentative plan is for the patient to shower prior to discharge today. The patient will change her bandages today prior to discharge as she will be doing this at home on her own. Continue with dry dressing daily. She is aware to get up in the morning and and use the bathroom first, get in the shower, pat dry her wounds and replace with dry dressing. She will come back to the office early next week to recheck her once. She is aware to call the office with any changes or concerns in the meantime. VS,Fishbone, I+O VS, Fishbone, I+O Vital Signs Date Time Temp Pulse Resp B/P (MAP) Pulse Ox O2 Delivery O2 Flow Rate FiO2 06/11/19 09:08 18 Room Air 06/11/19 08:36 78 108/80 06/11/19 06:00 98.0 95 06/09/19 06:00 2.0 I&O- Last 24 Hours up to 6 AM 06/11/19 05:59 Intake Total 1840 ml Output Total 1700 ml Balance 140 ml Sherri Barahona Jun 11, 2019 13:57
--- NOTE | 2019-06-11 20:08 | DSES ---
DATE OF ADMISSION: 06/08/2019 DATE OF DISCHARGE: 06/11/2019 REASON FOR ADMISSION: Ms. Croft was admitted from by Dr. Brown for surgical treatment of atherosclerotic vascular disease, peripheral arterial disease involving the right lower extremity. She underwent a right femoral endarterectomy with a XenoSure patch and a right femoral to below-knee popliteal bypass with cadaver vein 06/08/2019. 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 She had no visible ulcerations or open wounds on her legs or toes at that time of admission. She has longstanding history of diabetes mellitus, very insulin sensitive, history of spinal stenosis, rheumatoid arthritis. MEDICATIONS ON ADMISSION: Very nicely listed by Dr. Harman include: - atorvastatin 80 mg daily - clopidogrel 75 mg - gabapentin 100 mg three times a day - Lantus insulin 11 units daily - metoprolol succinate 25 mg daily - ramipril 2.5 mg daily - Tylenol Arthritis Strength two tablets twice a day and as needed - Lasix 40 mg daily for weight over 102 pounds - nitroglycerin sublingual as needed for chest pain ALLERGIES: ERYTHROMYCIN and RISEDRONATE. She also has history of coronary artery bypass graft and last echocardiogram showing an ejection fraction of 25%. PAST SURGERIES: Include: 1. Tubal ligation. 2. Hernia repair. 3. Right inguinal location. 4. Cholecystectomy. 5. Bilateral carpal tunnel surgery. 6. Cataract surgery. 7. Four-vessel coronary artery bypass graft. 8. Stent placed in the left leg, left femoral to anterior tibial bypass. 9. Blepharoplasty both eyes. 10. Left iliac artery stenting. 11. Femoral to anterior tibial artery bypass, left leg artery stents, extensive vascular work. She has been a former smoker and knows not to return to this activity. Surgery went well. She has had some swelling since surgery. Minor calf discomfort on the first postoperative day, but this has now dissipated. Her blood sugars have proven quite labile in hospital and she is likely correct in asserting that this is a product of extreme sensitivity to rapid acting insulin, consistent with observed swings in her sugar during hospital stay. On the evening before admission, her sliding scale scheme was discontinued to prevent hypoglycemia which developed two days in a row early late afternoon. At discharge, her medication list will be: - apixaban 5 mg by mouth twice a day recommended by Dr. Brown - aspirin 81 mg a day - clopidogrel will be stopped - ramipril 2.5 mg will continue - metoprolol 25 mg as succinate daily will continue - she will resume her usual insulin regimen of 11 units of Lantus daily - gabapentin 100 mg three times a day - as needed use of Lasix for weight over 102 pounds - atorvastatin 80 mg daily will continue - Tylenol Arthritis Strength two tablets twice a day - nitroglycerin as needed - multivitamin once a day - calcium with vitamin D 1000 mg - calcium with D one tablet daily. Activity will be as tolerated. She is asked to shower daily. Change the dressing with a simple with dry, sterile dressing held on by tape. She has all staple line which remain in place until removed by Dr. Brown, estimating 17-21 days. CONDITION ON DISCHARGE: She has some swelling of the lower extremity, but no pitting edema. There is no redness. The wound is clean. There is no drainage and the patient has no active complaints. VITAL SIGNS: Blood pressure 108/80, pulse 78, respiratory rate 18, oxygen saturation 95% on room air. DISCHARGE DIET: She will resume controlled carbohydrate diet, limit salt to grams as suggested. Activity as noted above as tolerated, with a wound care as specified by Sherri Barahona and Dr. Brown. Followup with primary care provider (PCP) in one week would be advisable and she has followup with Dr. Brown or Sherri aBrahona as specified by them. DISCHARGE DIAGNOSES: 1. Diabetes mellitus, presumably type 2. 2. Peripheral arterial disease. 3. Past history of smoking. 4. 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 5. History of coronary artery disease history.
[2019-06-12] MEDS ORDERED: LEVEMIR (INSULIN DETEMIR) 1 UNITS/0.01ML SC SCH (09:00)
== END 2019-06-11 12:53 | disposition home or self-care (01) | DRG 254 ==
LOC: M OR 05:59 → M MSPAV 13:44
PROVIDERS: ADMIT Surgery Vascular Surgery; ATTEND Family Medicine
PROC: 041K0KL Bypass Right Femoral Artery to Popliteal Artery with Nonautologous Tissue Substitute, Open Approach (ICD-10-PCS; principal; 2019-06-08 07:30)
DX: E11.51 Type 2 diabetes mellitus with diabetic peripheral angiopathy without gangrene (principal); E11.40 Type 2 diabetes mellitus with diabetic neuropathy, unspecified; I73.1 Thromboangiitis obliterans [Buerger's disease]; Z79.899 Other long term (current) drug therapy; Z79.4 Long term (current) use of insulin; M06.9 Rheumatoid arthritis, unspecified; F17.200 Nicotine dependence, unspecified, uncomplicated; Z79.82 Long term (current) use of aspirin; Z95.1 Presence of aortocoronary bypass graft; I10 Essential (primary) hypertension; E78.5 Hyperlipidemia, unspecified; J44.9 Chronic obstructive pulmonary disease, unspecified; I70.25 Atherosclerosis of native arteries of other extremities with ulceration; Z95.2 Presence of prosthetic heart valve; Z88.1 Allergy status to other antibiotic agents; Z88.8 Allergy status to other drugs, medicaments and biological substances; E11.319 Type 2 diabetes mellitus with unspecified diabetic retinopathy without macular edema; M81.0 Age-related osteoporosis without current pathological fracture

== ENCOUNTER → 2019-06-22 | Outpatient (REF) | payer MEDICARE, MEDICAID ==
[~2019-06-22] MED LIST changes: +ELIQ5TAB PO; +PERC5TAB12 PO
[2019-06-22 18:32] LABS: CREATININE FOR GFR 1.18 MG/DL (0.55-1.30); GLOMERULAR FILTRATION RATE 48.6 (>45); POTASSIUM SERUM 4.2 MEQ/L (3.5-5.1)
== END ==
LOC: M SFHCPLAZ 13:35
PROVIDERS: ATTEND Physician Assistant
DX: Z09 Encounter for follow-up examination after completed treatment for conditions other than malignant neoplasm (principal)
CPT/HCPCS: 36415; 80048; 99495; G0463

== ENCOUNTER → 2019-07-31 | Outpatient (CLI) | payer MEDICAID, MEDICARE ==
[~2019-07-31] MED LIST changes: -PERC5TAB12 PO
--- NOTE | 2019-07-31 14:33 | REP ---
BILATERAL LOWER EXTREMITY DUPLEX DOPPLER ARTERIAL ULTRASOUND: Real-time sonographic evaluation ultrasound evaluation and duplex Doppler interrogation of bilateral lower extremity arterial systems is performed and compared to a prior study of 01/26/2019. The patient has had placement of a right femoral to popliteal arterial bypass graft. The bypass graft is patent with normal internal flow velocities and monophasic waveforms. There are diffuse monophasic waveforms bilaterally. There is again occlusion of the nez perce right mid to distal superficial femoral artery. There does appear to be 3:1 stenosis just distal to the popliteal bypass graft anastomosis in the nez perce right popliteal artery. Tibioperoneal trunk is not seen. There are very small calf arteries, particularly at the posterior tibial artery which demonstrates slow flow. On the left, there is again occlusion noted of the entire superficial femoral and popliteal arteries. Large profunda artery is noted with large collateral vessel extending into the thigh with high velocity flow. There is very slow flow in the left posterior tibial artery with tardus parvus waveform distally. This is also reconstituted from a collateral vessel extending through the calf. Left anterior tibial artery is the dominant arterial structure supplying the left lower leg but there is very slow flow with tardus parvus waveform. Proximal left anterior tibial artery is reconstituted via collateral vessels. Right Peak Left Peak Systolic Velocity Systolic velocity Common femoral artery 157.0 cm/s 88.0 cm/s Profunda 180.0 cm/s 150.0 cm/s Proximal SFA 241.0 cm/s occluded Mid SFA occluded occluded Distal SFA reversed 67 cm/s occluded Popliteal 288.0 cm/s occluded Proximal DIONE 36.0 cm/s Proximal LUMBER PRESS OPERATOR 32.0 cm/s Distal LUMBER PRESS OPERATOR 11.0 cm/s 7.0 cm/s Distal DIONE 50.0 cm/s 20.0 cm/s Electronically Signed by Avtar Brewster MD 07/31/2019 03:00 P
== END ==
LOC: M RAD 11:50
PROVIDERS: ATTEND Physician Assistant
DX: I70.211 Atherosclerosis of native arteries of extremities with intermittent claudication, right leg (principal); Z48.812 Encounter for surgical aftercare following surgery on the circulatory system

== ENCOUNTER → 2019-08-17 | Outpatient (REF) | payer MEDICARE, MEDICAID ==
[2019-08-17 12:22] LABS: BASO # 0.1 10^3/uL (0.0-0.2); BASO % 1.4 % (0.0-1.0); EOS # 0.2 10^3/uL (0.0-0.5); EOS % 3.5 % (0.0-3.0); HEMATOCRIT 38.5 % (36.0-47.0); HEMOGLOBIN 12.4 g/dl (12.0-15.5); LYMPH # 1.1 10^3/uL (1.5-5.0); LYMPH % 18.8 % (24.0-44.0); MEAN CORPUSCULAR HEMOGLOBIN 31.2 pg (27.0-33.0); MEAN CORPUSCULAR HGB CONC 32.2 g/dl (32.0-36.5); MONO # 0.6 10^3/uL (0.0-0.8); MONO % 10.8 % (0.0-5.0); NEUTROPHILS # 3.7 10^3/uL (1.5-8.5); NEUTROPHILS % 65.2 % (36.0-66.0); PLATELET COUNT, AUTOMATED 272 10^3/uL (150-450); RED BLOOD COUNT 3.97 10^6/uL (4.00-5.40); WHITE BLOOD COUNT 5.7 10^3/uL (4.0-10.0)
[2019-08-17 12:33] LABS: ALBUMIN 3.3 GM/DL (3.2-5.2); ALT/SGPT 26 U/L (12-78); BILIRUBIN,TOTAL 0.5 MG/DL (0.2-1.0); BLOOD UREA NITROGEN 25 MG/DL (7-18); CALCIUM LEVEL 9.1 MG/DL (8.8-10.2); CARBON DIOXIDE LEVEL 28 MEQ/L (21-32); CHLORIDE LEVEL 107 MEQ/L (98-107); CHOLESTEROL LEVEL 133 MG/DL (<200); CREATININE FOR GFR 0.89 MG/DL (0.55-1.30); GLOMERULAR FILTRATION RATE > 60.0 (>45); GLUCOSE, FASTING 69 MG/DL (70-100); HDL CHOLESTEROL 48 MG/DL (>40); LDL CHOLESTEROL 72 MG/DL (<100); NON-HDL-C 85 MG/DL; POTASSIUM SERUM 4.7 MEQ/L (3.5-5.1); SODIUM LEVEL 139 MEQ/L (136-145); TOTAL PROTEIN 6.6 GM/DL (6.4-8.2); TRIGLYCERIDES LEVEL 64 MG/DL (<150)
[2019-08-17 12:40] LABS: HEMOGLOBIN A1c 6.4 %
== END ==
LOC: M SFHCPLAZ 09:36
PROVIDERS: ATTEND Physician Assistant
DX: I25.10 Atherosclerotic heart disease of native coronary artery without angina pectoris (principal); E78.5 Hyperlipidemia, unspecified; I15.9 Secondary hypertension, unspecified; E11.49 Type 2 diabetes mellitus with other diabetic neurological complication

== ENCOUNTER 2019-09-01 23:50 | Emergency (ER) | payer MEDICARE, MEDICAID ==
[~2019-09-01] VITALS: Ht 144.8 cm; Wt 39.4 kg
[2019-09-02] MEDS ORDERED: MORPHINE 4 MG/ML 1ML VIAL/SYRINGE (J2270) IV ONE
[2019-09-02] MEDS ORDERED: ONDANSETRON 4MG/2ML VIAL IV ONE
[2019-09-02] MEDS ORDERED: ONDANSETRON 4MG/2ML VIAL As Ordered ONE (00:03)
[2019-09-02] MEDS ORDERED: MORPHINE 4 MG/ML 1ML VIAL/SYRINGE (J2270) As Ordered ONE (00:03)
[2019-09-02 00:20] LABS: INR 1.28; PROTHROMBIN TIME 15.7 SECONDS (11.8-14.0)
--- NOTE | 2019-09-02 00:20 | REPVR ---
PROCEDURE INFORMATION: Exam: CT Head Without Contrast Exam date and time: 09/01/2019 11:58 PM Age: 69 years old Clinical indication: Injury or trauma; Fall; Initial encounter; Concussion / head injury; Consciousness not specified TECHNIQUE: Imaging protocol: Computed tomography of the head without contrast. Radiation optimization: All CT scans at this facility use at least one of these dose optimization techniques: automated exposure control; mA and/or kV adjustment per patient size (includes targeted exams where dose is matched to clinical indication); or iterative reconstruction. COMPARISON: CT Head without contrast 04/24/2014 2:17 PM FINDINGS: Brain: Prominent perivascular space at the right base of the brain. Upper normal sulci. The harper and white matter is within normal limits. Ventricles: Upper normal ventricles. Bones/joints: Unremarkable. No acute fracture. Sinuses: Visualized sinuses are unremarkable. No fluid levels. Mastoid air cells: Visualized mastoid air cells are well aerated. Soft tissues: Unremarkable. IMPRESSION: Negative noncontrast head CT without change from 04/24/2014. Electronically signed by: Román Ocampo On 09/02/2019 00:19:22 AM
--- NOTE | 2019-09-02 00:25 | REPVR ---
PROCEDURE INFORMATION: Exam: CT Cervical Spine Without Contrast Exam date and time: 09/01/2019 11:58 PM Age: 69 years old Clinical indication: Neck pain; Additional info: Injury TECHNIQUE: Imaging protocol: Computed tomography images of the cervical spine without contrast. Radiation optimization: All CT scans at this facility use at least one of these dose optimization techniques: automated exposure control; mA and/or kV adjustment per patient size (includes targeted exams where dose is matched to clinical indication); or iterative reconstruction. COMPARISON: CR Spine, Cervical 06/27/2017 12:30 PM FINDINGS: Vertebrae: Status post fusion at C5-C6. No acute fracture. Degenerative/arthritic changes at multiple apophyseal joints. C2-C3: Slight anterolisthesis with degenerative changes of apophyseal joints and no significant spinal or foraminal stenosis. C3-C4: Mild interspace narrowing with moderate anterolisthesis and degenerative/arthritic changes of apophyseal joints. There is borderline spinal stenosis and borderline left neural foraminal stenosis. C4-C5: Slight interspace narrowing with slight anterolisthesis . There are bilateral degenerative changes of apophyseal joints with no significant spinal or foraminal stenosis. C5-C6: Fusion with residual hypertrophic changes and mild left neural foraminal stenosis. C6-C7: Prominent interspace narrowing with mild anterolisthesis and minimal posterior osteophytes and bilateral degenerative change. There is borderline bilateral neural foraminal stenosis. C7-T1: Early degenerative change of apophyseal joints with no significant spinal or foraminal stenosis. Soft tissues: Unremarkable. Lungs: Lung apices are normal. IMPRESSION: 1. Multilevel degenerative/arthritic changes with varying degrees of neural foraminal stenosis. There is borderline spinal stenosis at C3-C4. 2. No acute fracture or subluxation. 3. Fusion at C5-C6. Electronically signed by: Román Ocampo On 09/02/2019 00:24:53 AM
[2019-09-02 00:26] LABS: BASO # 0.1 10^3/uL (0.0-0.2); BASO % 0.8 % (0.0-1.0); EOS # 0.2 10^3/uL (0.0-0.5); EOS % 3.2 % (0.0-3.0); HEMATOCRIT 41.2 % (36.0-47.0); LYMPH # 1.1 10^3/uL (1.5-5.0); LYMPH % 15.8 % (24.0-44.0); MEAN CORPUSCULAR HEMOGLOBIN 30.3 pg (27.0-33.0); MEAN CORPUSCULAR HGB CONC 31.6 g/dl (32.0-36.5); MONO # 0.8 10^3/uL (0.0-0.8); MONO % 11.1 % (0.0-5.0); NEUTROPHILS # 4.9 10^3/uL (1.5-8.5); NEUTROPHILS % 68.4 % (36.0-66.0); PLATELET COUNT, AUTOMATED 281 10^3/uL (150-450); RED BLOOD COUNT 4.29 10^6/uL (4.00-5.40); WHITE BLOOD COUNT 7.1 10^3/uL (4.0-10.0)
--- NOTE | 2019-09-02 01:33 | REP ---
Clinical: Trauma. Fall. Technique: Two frontal views of the left shoulder. Findings: Comminuted displaced fracture through the proximal humeral metaphysis noted with glenohumeral joint dislocation. Acromioclavicular joint appears intact. The scapula appears intact. The clavicle appears intact. Surrounding soft tissues are relatively unremarkable. Impression: Comminuted displaced fracture through the proximal humeral metaphysis. Electronically Signed by Jas El MD 09/02/2019 01:24 A
[2019-09-02 01:43] LABS: BLOOD UREA NITROGEN 24 MG/DL (7-18); CARBON DIOXIDE LEVEL 29 mmol/L (20-29); CHLORIDE LEVEL 102 MEQ/L (98-107); GLOMERULAR FILTRATION RATE 58.7 (>45); GLUCOSE, FASTING 183 MG/DL (70-100); SODIUM LEVEL 136 MEQ/L (136-145)
[2019-09-02 01:45] LABS: ALBUMIN 3.6 GM/DL (3.2-5.2); ALT/SGPT 28 U/L (12-78); BILIRUBIN,DIRECT 0.1 MG/DL (0.0-0.2); BILIRUBIN,TOTAL 0.4 MG/DL (0.2-1.0); CALCIUM LEVEL 8.7 MG/DL (8.8-10.2); CK-MB VALUE MASS 1.3 NG/ML (<3.6); CPK CREATINE PHOSPHOKINASE 79 U/L (26-192); MB/CK RELATIVE INDEX 1.64 (< OR =4); TOTAL PROTEIN 7.3 GM/DL (6.4-8.2)
[2019-09-02 01:46] LABS: LIPASE 47 U/L (73-393); TROPONIN I < 0.02 NG/ML (< 0.10)
[2019-09-02 02:00] VITALS: BP 105/55
[2019-09-02] MEDS ORDERED: PERC5TAB12 PO (02:08)
[2019-09-02] MEDS ORDERED: OXYCODONE/APAP 5MG/325MG(BULK FOR ED) 1 TABLET PO ONE (02:15)
--- NOTE | 2019-09-02 08:45 | ECGEPIP ---
[facility] - ED Test Date: 2019-09-02 Pat Name: CECILE JAY Department: Room: - Gender: Female Combine Inspector: : 1950 Requested By: SYLVAIN Ford Order Number: [id number] Reading MD: Luis E Mccollum Measurements Intervals [place] Rate: 62 P: 52 WY: 130 QRS: 47 QRSD: 83 T: 92 QT: 428 QTc: 435 Interpretive Statements SINUS RHYTHM LOW QRS VOLTAGE IN EXTREMITY LEADS POSSIBLE ANTERIOR MYOCARDIAL INFARCTION, PROBABLY OLD BASELINE ARTIFACT AFFECTS INTERPRETATION Electronically Signed on 09-02-2019 8:44:30 EDT by Luis E Mccollum
== END 2019-09-02 02:49 | disposition home or self-care (01) ==
LOC: EDBD 23:50 → M ED 23:50
CPT/HCPCS: 70450; 72125; 73030; 80048; 80076; 82550; 82553; 83690; 84484; 85025; 85610; 86850; 86900; 86901; 93005; 93041; 96374; 96375; 99285; J2270; J2405

== ENCOUNTER → 2019-11-25 | Outpatient (REF) | payer MEDICARE, MEDICAID ==
[~2019-11-25] MED LIST changes: +ACET650T61 PO; -NABU-126 PO; +NABU-51 PO; +PERC5TAB12 PO; -TYLE650T35 PO
[2020-01-09 12:41] LABS: CHOLESTEROL RISK RATIO 2.688 (<5)
== END ==
LOC: M PLALAB 08:07
PROVIDERS: ATTEND Physician Assistant
DX: I25.10 Atherosclerotic heart disease of native coronary artery without angina pectoris (principal)

== ENCOUNTER → 2019-11-25 | Outpatient (REF) | payer MEDICARE, MEDICAID ==
[2020-01-23 16:07] LABS: CALCIUM LEVEL 8.8 MG/DL (8.8-10.2); CREATININE FOR GFR 1.17 MG/DL (0.55-1.30); HEMOGLOBIN A1c 6.5 %; POTASSIUM SERUM 5.4 MEQ/L (3.5-5.1)
== END ==
LOC: M SFHCPLAZ 08:09
PROVIDERS: ATTEND Physician Assistant
DX: E11.49 Type 2 diabetes mellitus with other diabetic neurological complication (principal)

== ENCOUNTER → 2020-01-08 | Outpatient (CLI) | payer MEDICARE, MEDICAID ==
--- NOTE | 2020-01-21 08:12 | REP ---
BILATERAL LOWER EXTREMITY ARTERIA DOPPLER ULTRASOUND HISTORY: Intermittent claudication. Atherosclerosis. Right fem-pop bypass graft. COMPARISON: 07/31/2019. FINDINGS: Ankle brachial indices could not be achieved due to noncompressible vessels as before. The right fem-pop bypass graft is now occluded from proximal to distal. There is a 2:1 velocity ratio stenosis in the proximal common femoral artery above the bypass graft anastomosis. There is a 2:1 velocity stenosis in the proximal profunda femoral artery. The right SFA is occluded and heavily calcified. There is a trickle of flow visible in the popliteal and very slow velocities are seen from popliteal to the foot. On the left, there is a large collateral again seen off the common femoral artery traveling laterally into the thigh. A greater than 2:1 velocity ratio stenosis is seen in the profunda on the left. The superficial femoral artery is occluded from proximal to the popliteal. Trickle flow is seen in the calf arteries with very slow velocities. Heavy calcification is seen throughout. Evidence of progressive disease. VELOCITY CHART BILATERAL LOWER EXTREMITIES RIGHT (cm/s) LEFT (cm/s) DIVISION CHAIR 96/215 102 Profunda 98/234 172/72 Proximal SFA Occluded Occluded Mid SFA Occluded Occluded Distal SFA Occluded Occluded Popliteal 5 Occluded Proximal DIONE 6 12 Tibioperoneal trunk Not seen Not seen Proximal INVASIVE PHYSICIAN 7 17 Distal INVASIVE PHYSICIAN 7 5 Distal DIONE 10 11 MTDD
== END ==
LOC: M RAD 09:39
PROVIDERS: ATTEND Surgery Vascular Surgery
DX: I70.211 Atherosclerosis of native arteries of extremities with intermittent claudication, right leg (principal)

== ENCOUNTER 2020-02-02 04:20 | Emergency (ER) | payer MEDICARE, MEDICAID ==
[~2020-02-02] VITALS: Ht 144.8 cm; Wt 44.5 kg
[2020-02-02 04:35] VITALS: BP 146/82
== END 2020-02-02 05:11 | disposition home or self-care (01) ==
LOC: M ED 04:20
DX: E10.649 Type 1 diabetes mellitus with hypoglycemia without coma (principal); M19.90 Unspecified osteoarthritis, unspecified site; Z95.1 Presence of aortocoronary bypass graft; Z79.01 Long term (current) use of anticoagulants; Z79.82 Long term (current) use of aspirin; Z79.4 Long term (current) use of insulin; Z79.899 Other long term (current) drug therapy; Z88.1 Allergy status to other antibiotic agents; Z88.8 Allergy status to other drugs, medicaments and biological substances

== ENCOUNTER → 2020-04-20 | Outpatient (CLI) | payer MEDICARE, MEDICAID ==
--- NOTE | 2020-04-20 12:15 | REPMRS ---
Patient History The patient states she had a clinical breast exam in 03/2020. Family history of colorectal cancer at age 50 or over in maternal aunt, breast cancer at age 50 or over in paternal aunt. No Hormone Replacement Therapy Digital Woman Screen Mammo: April 20, 2020 - Exam #: [id number] Bilateral CC and MLO view(s) were taken. Technologist: Poornima Joseph, Technologist Prior study comparison: April 13, 2019, bilateral digital woman screen mammo performed at [facility]. April 10, 2018, bilateral digital woman screen mammo performed at [facility]. April 02, 2017, digital woman screen mammo performed at [facility]. FINDINGS: The breast tissue is extremely dense which could obscure a lesion on mammography. The [place] volumetric breast density category is: D. There is an extremely dense symmetrical pattern of residual fibroglandular tissue. There has been no change in the appearance of the mammogram from the previous studies. There is no interval development of dominant mass, archetectural distortion, or grouped microcalcifications suggestive of malignancy. 3-D tomosynthesis shows no additional findings. Assessment: BI-RADS/ACR category 1 mammogram. Negative Mammogram. Recommendation Routine screening mammogram of both breasts in 1 year (for women over age 40). This patient's [facility] Lifetime Breast Cancer RIsk is estimated at 9.6 %. This mammogram was interpreted with the aid of an FDA-approved computer-aided dectection system. Electronically Signed By: Kristian Wyman MD 04/20/20 [id number]
== END ==
LOC: M WHC 10:27
PROVIDERS: ATTEND Nurse Practitioner Family
DX: Z12.31 Encounter for screening mammogram for malignant neoplasm of breast (principal)
CPT/HCPCS: 77063; 77067; G0463

== ENCOUNTER → 2020-05-27 | Outpatient (CLI) | payer MEDICAID, MEDICARE ==
--- NOTE | 2020-05-27 13:54 | REP ---
INDICATION: CIGARETTE SMOKER. COMPARISON: Comparison is made with prior CT studies from July 24, 2018, and January 13, 2016.. TECHNIQUE: Low-dose screening chest CT technique. 3 mm axial images are provided at lung only windows. FINDINGS: There are multiple small subcentimeter nodular opacities bilaterally which are unchanged from the July 24, 2018 prior study. There are bibasilar linear fibrotic changes also stable from the prior study. No new pulmonary mass nodule or mass lesion is observed. No new infiltrate is seen. Vascular calcification and mitral valve prosthesis again noted. Incidental note is made of nodular fullness in the right axilla consistent with moderate to advanced right axillary lymphadenopathy. This should be further evaluated. Right axillary ultrasound and tissue sampling procedure should be considered. IMPRESSION: Lung RADS category 2 S findings. No pulmonary nodule is seen. However, there is fairly bulky right axillary lymphadenopathy. Rule out lymphoma versus metastatic disease. Right axillary ultrasound recommended. Tissue sampling should be considered. <Electronically signed by Kristian Wyman > 05/27/20 [id number]
== END ==
LOC: M RAD 10:36
PROVIDERS: ATTEND Family Medicine
DX: Z12.2 Encounter for screening for malignant neoplasm of respiratory organs (principal); F17.218 Nicotine dependence, cigarettes, with other nicotine-induced disorders

== ENCOUNTER → 2020-06-28 | Outpatient (REF) | payer MEDICARE, MEDICAID ==
[~2020-06-28] MED LIST changes: +BENA25TA5 PO; +COVI100V IM; +EQ S0.65; +FISH1000 PO; -NABU-51 PO; +NABU-71 PO
[2020-06-28 14:10] LABS: BASO # 0.1 10^3/uL (0.0-0.2); BASO % 1.3 % (0.0-1.0); EOS # 0.2 10^3/uL (0.0-0.5); HEMATOCRIT 40.2 % (36.0-47.0); HEMOGLOBIN 12.8 g/dl (12.0-15.5); LYMPH % 21.1 % (24.0-44.0); MEAN CORPUSCULAR HEMOGLOBIN 31.1 pg (27.0-33.0); MEAN CORPUSCULAR HGB CONC 31.8 g/dl (32.0-36.5); MEAN CORPUSCULAR VOLUME 97.6 fl (80.0-96.0); MONO # 0.8 10^3/uL (0.0-0.8); MONO % 15.9 % (2.0-8.0); NEUTROPHILS # 2.8 10^3/uL (1.5-8.5); NEUTROPHILS % 57.3 % (36.0-66.0); PLATELET COUNT, AUTOMATED 260 10^3/uL (150-450); RED BLOOD COUNT 4.12 10^6/uL (4.00-5.40); WHITE BLOOD COUNT 4.8 10^3/uL (4.0-10.0)
[2020-06-28 14:37] LABS: ALBUMIN 3.5 GM/DL (3.2-5.2); ALT/SGPT 24 U/L (12-78); BILIRUBIN,TOTAL 0.3 MG/DL (0.2-1.0); BLOOD UREA NITROGEN 22 MG/DL (7-18); CALCIUM LEVEL 9.1 MG/DL (8.8-10.2); CARBON DIOXIDE LEVEL 32 MEQ/L (21-32); CHLORIDE LEVEL 105 MEQ/L (98-107); CHOLESTEROL LEVEL 115 MG/DL (<200); CHOLESTEROL RISK RATIO 2.211 (<5); CREATININE FOR GFR 0.93 MG/DL (0.55-1.30); GLOMERULAR FILTRATION RATE > 60.0 (>45); GLUCOSE, FASTING 131 MG/DL (70-100); HDL CHOLESTEROL 52 MG/DL (>40); LDL CHOLESTEROL 52 MG/DL (<100); NON-HDL-C 63 MG/DL; POTASSIUM SERUM 4.9 MEQ/L (3.5-5.1); PTH INTACT 40.6 PG/ML (18.5-88.0); SODIUM LEVEL 140 MEQ/L (136-145); TOTAL PROTEIN 6.9 GM/DL (6.4-8.2); TRIGLYCERIDES LEVEL 57 MG/DL (<150)
[2020-06-28 15:32] LABS: HEMOGLOBIN A1c 6.7 %
== END ==
LOC: M SFHCPLAZ 11:02
PROVIDERS: ATTEND Physician Assistant
DX: E11.40 Type 2 diabetes mellitus with diabetic neuropathy, unspecified (principal); E78.2 Mixed hyperlipidemia; E21.3 Hyperparathyroidism, unspecified; R59.0 Localized enlarged lymph nodes
CPT/HCPCS: 36415; 80053; 80061; 83036; 83970; 85025; G0463

== ENCOUNTER → 2020-07-13 | Outpatient (CLI) | payer MEDICARE, MEDICAID ==
[~2020-07-13] MED LIST changes: -COVI100V IM; -FISH1000 PO; +NABU-51 PO; -NABU-71 PO
--- NOTE | 2020-07-13 12:39 | REP ---
INDICATION: RT AXILLARY LYMPHADENOPATHY ABN IMAGING. COMPARISON: CT 05/27/2020. TECHNIQUE: Real-time sonographic evaluation of right axilla performed. FINDINGS: Multiple suspicious enlarged lymph nodes are seen in the right axilla. These demonstrate increased blood flow with Doppler evaluation. The largest measure 3.3 x 2.5 x 3.1 cm, 3.5 x 1.8 x 2.0 cm and 2.6 x 1.7 x 2.3 cm. IMPRESSION: Multiple suspicious enlarged right axillary lymph nodes. Ultrasound-guided biopsy could be performed if desired. <Electronically signed by Avtar Brewster > 07/13/20 [id number]
== END ==
LOC: M RAD 10:17
PROVIDERS: ATTEND Internal Medicine Medical Oncology
DX: R59.0 Localized enlarged lymph nodes (principal)

== ENCOUNTER → 2020-07-15 | Outpatient (CLI) | payer MEDICARE, MEDICAID ==
[~2020-07-15] MED LIST changes: +PROHANCE 279.3MG/ML 15ML VIAL As Ordered ONE
--- NOTE | 2020-07-15 13:34 | REP ---
INDICATION: RT AXILLARY ADENOPATHY ABN IMAG ? LYMPHOMA VS METS. COMPARISON: Comparison mammography April 20, 2020. Comparison chest CT May 27, 2020 and comparison right axillary sonography July 13 2020. TECHNIQUE: Three [facility] MRI imaging was performed with a dedicated breast coil. Axial, coronal, and sagittal T1 and T2 weighted scans were obtained with and without fat saturation in the usual fashion. The study includes dynamically acquired post gadolinium-enhanced imaging with image subtraction. Maximum intensity projection and multi planar reformation imaging is included as well. This study is interpreted with the aid of My Point...Exactly, an FDA approved computer aided detection (CAD) software program, on a dedicated breast MRI workstation. The gadolinium enhancement dose is 8 mL of intravenous ProHance. FINDINGS: There is a extreme amount of fibroglandular tissue bilaterally corresponding with the mammographic pattern. There is mild background parenchymal enhancement. There is no evidence of significant breast cystic change. High-resolution pre and post-contrast T1 and T2 weighted scans show no suspicious morphologic abnormality in either breast. Dynamically acquired sequential postcontrast images show no suspicious area of enhancement and washout kinetics in either breast to suggest malignancy. Subtraction images show no additional abnormality. The recently identified finding of bulky right axillary lymphadenopathy is seen on MR imaging most conspicuously on the T2 weighted scans. There is mild type 1 enhancement in several of the lymph nodes. 6-7 enlarged abnormal lymph nodes are seen in the right axilla and subclavian region. These measure up to 3.5 cm in greatest diameter. no left axillary lymphadenopathy is seen. Incidental note is made of a an old somewhat impacted fracture of the surgical neck of the humerus on the left. Magnetic field susceptibility artifact is seen emanating from median sternotomy wires. IMPRESSION: BI-RADS category 4 suspicious bilateral breast MRI study. No suspicious abnormality is seen within either breast. Extreme confluent fibroglandular tissue is seen bilaterally corresponding with the dense tissue seen mammographically. There is however bulky suspicious right axillary lymphadenopathy. Histologic sampling is recommended.. <Electronically signed by Kristian Wyman > 07/15/20 [id number]
== END ==
LOC: M RAD 09:13
PROVIDERS: ATTEND Internal Medicine Medical Oncology
DX: R59.0 Localized enlarged lymph nodes (principal); R92.8 Other abnormal and inconclusive findings on diagnostic imaging of breast
CPT/HCPCS: A9576; C8908

== ENCOUNTER → 2020-07-20 | Outpatient (CLI) | payer MEDICARE, MEDICAID ==
[~2020-07-20] MED LIST changes: +COVI100V IM; +FISH1000 PO; +LIDOCAINE 1% MDV 20ML VIAL As Ordered ONE; -NABU-51 PO; +NABU-71 PO; -PROHANCE 279.3MG/ML 15ML VIAL As Ordered ONE; +SODIUM BICARBONATE 8.4% INJ 50MEQ 50 ML VIAL As Ordered ONE
[2020-07-20 14:36] VITALS: BP 126/57
--- NOTE | 2020-07-20 17:42 | REP ---
INDICATION: RT AXILLA ENLARGED LYMPH NODE. COMPARISON: None. TECHNIQUE: The procedure was performed by Brit Steele [facility], under the direct supervision of Dr. Brewster. The risks and benefits of the procedure were explained to the patient and an informed consent was obtained both verbally and written. Directly prior to the start of the procedure a formal time-out was completed in the procedure room. FINDINGS: Using ultrasound guidance the right axillary lymph node was localized. The skin was prepped and draped in a sterile fashion. Four mL of buffered lidocaine was used as a local anesthetic. Using ultrasound guidance a 17/18 gauge coaxial needle biopsy system was inserted and advanced into the right axillary lymph node. Eight core biopsy specimens were obtained. Four specimens were sent to our lab here, and remaining 4 were sent out in RPMI solution, for further testing. The patient tolerated the procedure well and there were no immediate complications. After the appropriate amount of monitored convalescence the patient was discharged from the department. IMPRESSION: 1. Ultrasound-guided right axillary lymph node biopsy. <Electronically signed by Brit Steele > 07/20/20 1600 <Electronically signed by Avtar Brewster > 07/20/20 [id number]
== END ==
LOC: M IRPRO 12:44
PROVIDERS: ATTEND Internal Medicine Medical Oncology
DX: C85.14 Unspecified B-cell lymphoma, lymph nodes of axilla and upper limb (principal)

== ENCOUNTER → 2020-08-05 | Outpatient (CLI) | payer MEDICARE, MEDICAID ==
[~2020-08-05] MED LIST changes: -LIDOCAINE 1% MDV 20ML VIAL As Ordered ONE; -SODIUM BICARBONATE 8.4% INJ 50MEQ 50 ML VIAL As Ordered ONE
--- NOTE | 2020-08-05 13:50 | REP ---
INDICATION: CLAUDICATION COMPARISON: 01/08/2020. TECHNIQUE: Real time brewster scale and Duplex Doppler evaluation of the bilateral lower extremity arterial vasculature using linear high frequency transducer. FINDINGS: Brewster scale and duplex doppler images demonstrate severe bilateral plaque. There is patent flow in the external iliac arteries bilaterally. Right common femoral to popliteal bypass graft is occluded. [place] right femoral artery is occluded. There is trickle flow in the proximal anterior and posterior tibial arteries. Distal right anterior and posterior tibial arteries are occluded, a new finding. There adjacent collateral vessels. Left proximal and mid femoral artery is occluded. A large collateral vessel originates from the common femoral artery. Trickle flow is seen in the distal femoral artery. There is occlusion of the popliteal artery. Tibioperoneal trunk and posterior tibial artery are occluded, a new finding. There are diffuse monophasic waveforms bilaterally. Peak systolic velocities (cm/sec) Common femoral artery: Right 145; Left 98 Profunda femoris: Right 180; Left 24 SFA (proximal): Right occluded; Left occluded SFA (mid): Right occluded; Left occluded SFA (distal): Right occluded; Left trickle 23 Popliteal artery: Right 145; Left occluded DIONE (prox.): Right 11; Left 12 Tibioperoneal trunk: Right 44; Left occluded FLOOR SCRAPER (prox.): Right 16; Left occluded FLOOR SCRAPER (distal): Right occluded; Left occluded DIONE (distal): Right occluded; Left 18 IMPRESSION: Severe bilateral plaque. Occlusion right common femoral to popliteal bypass graft. [place] right femoral artery is occluded. New occlusion of right distal anterior and posterior tibial arteries. Occlusion left femoral and popliteal arteries. New occlusion left tibioperoneal trunk and posterior tibial artery. <Electronically signed by Avtar Brewster > 08/05/20 1202
== END ==
LOC: M RAD 11:49
PROVIDERS: ATTEND Surgery Vascular Surgery
DX: I70.213 Atherosclerosis of native arteries of extremities with intermittent claudication, bilateral legs (principal)

== ENCOUNTER → 2020-08-11 | Outpatient (CLI) | payer MEDICARE, MEDICAID ==
--- NOTE | 2020-08-12 10:09 | ECHO ---
DATE OF PROCEDURE: 08/11/2020 Age: 70 Gender: Female Height: 58 inches Weight: 101 pounds Body surface area: 1.36 m2 PATIENT LOCATION: Outpatient. REFERRING PHYSICIAN: Yanet Arellano M.D. INDICATION: Potentially cardiotoxic chemotherapy. MEASUREMENTS: 2D Measurements: RV 3.1 cm LV 2.8 cm Septum 1.0 cm Posterior wall 1.0 cm Aortic Root 2.6 cm LA 3.6 cm LVEF 65% Doppler Measurements: AV 1.03 m/s LVOT 0.86 m/s LVOT diameter 1.5 cm MV-E 69, A 110, E/A ratio 0.6 Early mitral deceleration time 264 msec E prime medial 3.9, A prime medial 7.8, E prime lateral 5.6 Average E/E prime ratio 14.5/PCWP 20 mmHg PV 0.8 m/s Pulmonary artery acceleration time 115 msec RVSP 33 mmHg IVC 1.5 cm COMMENTS: Normal sinus rhythm without intraventricular conduction disturbance. M-mode and two-dimensional echocardiography was performed with pulse, continuous wave, color flow, and tissue Doppler studies. Normal left ventricular size and wall thickness with obvious localized apical aneurysm. Other left ventricular wall segments move normally or were hypokinetic. Left atrial size upper limits of normal with grade 1 LV diastolic dysfunction and at least mildly elevated estimated mean left atrial pressure. Right ventricle upper limits of normal with normal wall motion and mild pulmonary hypertension. Right atrium upper limits of normal in size with normal IVC size and collapse against an elevated central venous pressure. Normal aortic dimensions. Moderate aortic valvular sclerosis without functional abnormality. Moderate mitral annular calcification with normal leaflet excursion and no posterior systolic buckling and only trace insufficiency. Normal appearing tricuspid valve with moderate insufficiency. No apparent intracardiac mass or pericardial effusion. MTDD
== END ==
LOC: M CARPUL 10:55
PROVIDERS: ATTEND Internal Medicine Medical Oncology
DX: C85.90 Non-Hodgkin lymphoma, unspecified, unspecified site (principal)

== ENCOUNTER → 2020-08-15 | Outpatient (CLI) | payer MEDICARE, MEDICAID | LOC: M PLARAD 11:54 | PROVIDERS: ATTEND Internal Medicine Medical Oncology | DX: Z53.9 Procedure and treatment not carried out, unspecified reason (principal) ==

== ENCOUNTER 2020-08-23 07:20 | Day surgery (SDC) | payer MEDICARE, MEDICAID ==
[~2020-08-23] VITALS: Ht 144.8 cm; Wt 45.1 kg
[~2020-08-23 07:20] MED LIST changes: +LR 1,000 ML IV ONE; +ceFAZolin SOD 1 GM in D5W MINI-BAG PLUS 50 ML IV ONE
[2020-08-23] MEDS ORDERED: HumaLOG INSULIN (NovoLOG) PER UNIT SC STA (09:09)
[2020-08-23] MEDS ORDERED: BUPIVACAINE/EPIN 0.25% 30 ML VIAL As Ordered ONE (09:32)
[2020-08-23] MEDS ORDERED: LIDOCAINE 2% 100MG/5ML SDV (FOR ANES.) As Ordered ONE (09:39)
[2020-08-23] MEDS ORDERED: KETOROLAC 60MG 2ML VIAL As Ordered ONE (09:39)
[2020-08-23] MEDS ORDERED: MIDAZOLAM INJ 2MG/2ML VIAL (J2250 PER 1MG) As Ordered ONE (09:39)
[2020-08-23] MEDS ORDERED: propofoL 200 MG/20 ML VIAL As Ordered ONE (09:39)
[2020-08-23] MEDS ORDERED: METOCLOPRAMIDE INJ 10MG/2ML VIAL (J2765 PER 1) As Ordered ONE (09:39)
[2020-08-23] MEDS ORDERED: dexameTHASONE 4 MG/ML 1ML VIAL (J1100 PER 1MG) As Ordered ONE (09:39)
[2020-08-23] MEDS ORDERED: fentaNYL 100 MCG/2 ML INJECTION (J3010) As Ordered ONE (09:39)
[2020-08-23] MEDS ORDERED: ONDANSETRON 4MG/2ML VIAL As Ordered ONE (09:39)
[2020-08-23] MEDS ORDERED: ePHEDrine SULFATE 25 MG/5 ML(5MG/ML) SYRINGE As Ordered ONE (10:03)
[2020-08-23 11:30] VITALS: BP 109/51
== END 2020-08-23 12:15 | disposition home or self-care (01) ==
LOC: M SDC 07:20
PROVIDERS: ATTEND Surgery
DX: C82.24 Follicular lymphoma grade III, unspecified, lymph nodes of axilla and upper limb (principal); Z88.1 Allergy status to other antibiotic agents; Z88.8 Allergy status to other drugs, medicaments and biological substances; I25.2 Old myocardial infarction; I10 Essential (primary) hypertension; E78.5 Hyperlipidemia, unspecified; E10.9 Type 1 diabetes mellitus without complications; Z79.4 Long term (current) use of insulin; Z79.82 Long term (current) use of aspirin; Z79.899 Other long term (current) drug therapy; I34.9 Nonrheumatic mitral valve disorder, unspecified; Z95.1 Presence of aortocoronary bypass graft; M81.0 Age-related osteoporosis without current pathological fracture
CPT/HCPCS: 38525; 88307; J0690; J1100; J1885; J2250; J2405; J2765; J3010

== ENCOUNTER → 2020-08-29 | Outpatient (CLI) | payer MEDICARE, MEDICAID ==
[~2020-08-29] MED LIST changes: -LR 1,000 ML IV ONE; -ceFAZolin SOD 1 GM in D5W MINI-BAG PLUS 50 ML IV ONE
--- NOTE | 2020-08-29 15:32 | REP ---
INDICATION: DIAGNOSING LYMPHOMA. COMPARISON: There are no priors comparison TECHNIQUE: After the intravenous administration of 14.45 mCi of FDG 18 triplane whole-body PET-CT was performed from the skull base to the mid thigh. FINDINGS: Beginning in the posterior cervical lymph node chain in the right neck root there is hypermetabolic activity with a wide range of hypermetabolism from a maximal SUV value of 2.96 up to 5.46. This extends inferiorly into the subclavian lymph node chain on the right into the axillary lymph node chain on the right and in rather bulky fashion. The axillary hypermetabolism also has a range of SUV values from a maximal of 4.73 to 6.89. Also seen is hypermetabolic activity in the left subclavian lymph node chain with maximal SUV values of approximately 4.48. There is mediastinal and right hilar hypermetabolic activity, with the mediastinal activity maximal SUV value of proximally 4.4 and the right hilar activity 5.4 maximal SUV value. There is retrocrural lymphadenopathy with maximal SUV value of 4.18. Para-aortic lymphadenopathy is also hypermetabolic with maximal SUV value of approximately 5.28. There is abnormal hypermetabolic activity within bulky pelvic sidewall lymph nodes bilaterally. Abnormal SUV value on the left 13.01 and on the right 4.97. No other areas of abnormal hypermetabolic activity are seen in the neck, chest, abdomen, or pelvis. Seen on the CT component of today's exam there is a mixed density mass in the right inferior axilla which measures approximately 5 cm and is consistent with previous biopsy site. IMPRESSION: There is abnormal hypermetabolic activity seen above and below the diaphragm, as described above, consistent with the patient's diagnosis of lymphoma. <Electronically signed by Umesh Flores > 08/29/20 0482
== END ==
LOC: M PLARAD 10:22
PROVIDERS: ATTEND Internal Medicine Medical Oncology
DX: C83.38 Diffuse large B-cell lymphoma, lymph nodes of multiple sites (principal)
CPT/HCPCS: 78815; A9552

== ENCOUNTER → 2020-09-26 | Outpatient (CLI) | payer MEDICAID, MEDICARE ==
[~2020-09-26] MED LIST changes: +DEXTROSE 50% 50 ML SYRINGE As Ordered ONE; +LIDOCAINE 1% MDV 20ML VIAL As Ordered ONE; +MIDAZOLAM INJ 2MG/2ML VIAL (J2250 PER 1MG) As Ordered ONE; +NS 1,000 ML IV SCH; +ONDA8TAB10 PO; +PRED20TA PO; +PROC10TA4 PO; +ceFAZolin 2 GM/D5W 50 ML IV BAG (J0690 PER 500MG) As Ordered ONE; +ceFAZolin SOD 2 GM in IV 1 EA IV ONE; +diphenhydrAMINE 50MG/ML VIAL (J1200) As Ordered ONE; +fentaNYL 100 MCG/2 ML INJECTION (J3010) As Ordered ONE
--- NOTE | 2020-09-26 14:03 | IRHP ---
[facility] IR Pre-Procedure H & P General Date of Service: Sep 26, 2020 Procedure: Same Day Surgery Interval History and Physical I have seen the patient and reviewed last H & P performed within 30 days. There is no significant interval change. History of Present Illness Chief Complaint The patient is a 70-year-old female admitted with a reason for visit of Axillary Lymphadenopathy. PRE-PROCEDURE DIAGNOSIS:lymphoma HEART: normal rate. LUNGS: normal breathing at rest. ASA Classification ASA Classification: III-Severe systemic dis. Mallampati Score: II NPO: Yes Problems with prior sedation: No Obstructive Sleep Apnea: No Plan moderate sedation Allergies Coded Allergies: erythromycin base (Verified Allergy, Intermediate, rash, 08/17/20) risedronate sodium (Verified Adverse Reaction, Intermediate, BONE PAIN, 08/17/20) Home Medications Scheduled Acetaminophen (Tylenol Arthritis), 650 MG PO QPM, (Reported) Apixaban (Eliquis), 5 MG PO BID Aspirin (Aspirin EC), 81 MG PO DAILY, (Reported) Atorvastatin Calcium (Atorvastatin Calcium), 80 MG PO QHS, (Reported) Calcium Carbonate/Vitamin D3 (Calcium 1,000 + D3 Caplet), 1 TAB PO BID, (Reported) Gabapentin (Gabapentin), 100 MG PO QHS, (Reported) Insulin Glargine (Lantus), 11 UNITS SC DAILY, (Reported) Metoprolol Succinate (Metoprolol Succinate), 25 MG PO DAILY, (Reported) Multivitamins (Thera M Plus Tablet), 1 TAB PO DAILY, (Reported) Reading-3 Fatty Acids/Fish Oil (Fish Oil 1,000 mg Capsule), 1 CAP PO DAILY, (Reported) Ramipril (Ramipril), 2.5 MG PO QHS, (Reported) Sodium Chloride (Nasal [place]), 0.65 % NA PRN, (Reported) diphenhydrAMINE HCl (Benadryl Allergy), 25 MG PO PRN, (Reported) Scheduled PRN Furosemide (Lasix), 40 MG PO DAILYPRN PRN for weight >100, (Reported) Nitroglycerin (Nitrostat), 0.4 MG SL PRN PRN for CHEST PAIN, (Reported) Discontinued Medications Covid-19 Vacc,Mrna(Moderna)/Pf (Moderna Covid19 Vacc(Unapprov)), 100 MCG IM, (Reported) Discontinued Reason: PCP discontinued med VS, I&O, 24H, Fishbone Vital Signs/I&O Vital Signs Date Time Temp Pulse Resp B/P (MAP) Pulse Ox O2 Delivery O2 Flow Rate FiO2 09/26/20 12:53 98.2 84 16 95 Room Air FELIX HILL MD Sep 26, 2020 14:03
[2020-09-26 17:15] VITALS: BP 110/55
--- NOTE | 2020-09-29 13:40 | IRPON ---
IR Postoperative Note Date Of Procedure: Sep 26, 2020 Time Of Procedure: 16:00 IR Postoperative Note IR Ultrasound and fluoroscopy guided port placement. IR Ultrasound of the neck. IR Moderate sedation. Clinical indication: Lymphoma. Physician: Dr. Gutierrez. Procedure: The patient was advised of the benefits, risks, and alternatives of the procedure and informed consent was obtained. A time-out was performed with verification of the patient's name, MRN, site of procedure and type of procedure to be performed. The patient was positioned in the supine position on the angiographic table. The site was prepped and draped in the usual sterile fashion. Moderate sedation was performed by the physician including the presence of an independent trained RN who assisted and monitored the patient's level of consciousness and physiologic status. Following the administration of fentanyl and Versed , the physician spent 90 minutes of continuous face to face time with the patient. Ultrasound of the right neck reveals a patent but compressed right internal jugular vein. Large right neck lymphadenopathy, compressing and displacing the right internal jugular vein. A donor relations manager radiograph reveals median sternotomy wires and cardiac hardware. The neck and anterior chest wall were anesthetized with lidocaine. The right internal jugular vein was accessed using a microintroducer needle, under ultrasound guidance, via a lateral approach. An 018 wire, was advanced through the needle under fluoroscopy guidance but could not be advanced further due to bulky lymphadenopathy, compressing and displacing the vein. The needle and wire were removed. Ultrasound of the left neck was performed and this demonstrates patent and compressible left internal jugular vein. The neck and anterior chest wall were anesthetized with lidocaine. The left internal jugular vein was accessed using a microintroducer needle under ultrasound guidance, via a lateral approach. An 018 wire was advanced into the superior vena cava, under fluoroscopy guidance, the needle was removed and a microsheath was placed. An Amplatz wire was then passed into the inferior vena cava, under fluoroscopy guidance. An incision at the internal jugular vein access site and anterior chest wall were made using a scalpel. An incision was made at the anterior chest wall. A small pocket was created using a combination of blunt and sharp dissection. A tunneling device was then used to pass the catheter from the pocket to the neck puncture site. An 8- [place] How do you roll? Smart power port was then positioned in the pocket. The catheter was then measured and cut. The introducer sheath was exchanged for a peel-away sheath, under fluoroscopic guidance. The catheter was passed through the peel-away sheath into the internal jugular vein and the peel-away sheath was removed. The port tip was positioned at the cavoatrial junction. Final donor relations manager radiograph demonstrates good positioning of left-sided port. Wires and hardware projecting over the heart are better imaged on the final chest radiograph and are unchanged from CT without contrast 01/13/2016. The port was then accessed with a Forrester needle. The port flushes and aspirates well. The puncture site in the neck was closed. The chest wall incision was then closed with 2-0 Vicryl and 4-0 Monocryl. Glue and Steri-Strips were applied. A sterile dressing was then applied. The patient tolerated the procedure well and was returned to the PRU in stable condition. Estimated blood loss: <5 ml. Complications: None. Conclusion: 1. Successful placement of an 8-[place] Ang[employer] dynamics Smart power port via the left internal jugular vein. The port is ready for immediate use. 2. Patient to follow up in IR clinic in 2 weeks. Thank you for this referral. FELIX GUTIERREZ MD Sep 29, 2020 13:40
== END ==
LOC: M IRPRO 12:27
PROVIDERS: ATTEND Radiology Diagnostic Radiology
DX: C85.94 Non-Hodgkin lymphoma, unspecified, lymph nodes of axilla and upper limb (principal); Z88.1 Allergy status to other antibiotic agents; Z88.8 Allergy status to other drugs, medicaments and biological substances; Z79.82 Long term (current) use of aspirin; Z79.899 Other long term (current) drug therapy
CPT/HCPCS: 36561; 99152; 99153; C1769; C1788; C1894; J0690; J1200; J1642; J1644; J2250; J3010

== ENCOUNTER → 2020-10-11 | Outpatient (POV) | payer MEDICAID, MEDICARE ==
[~2020-10-11] VITALS: Ht 146.1 cm; Wt 45.0 kg
[~2020-10-11] MED LIST changes: -DEXTROSE 50% 50 ML SYRINGE As Ordered ONE; -LIDOCAINE 1% MDV 20ML VIAL As Ordered ONE; -MIDAZOLAM INJ 2MG/2ML VIAL (J2250 PER 1MG) As Ordered ONE; -NS 1,000 ML IV SCH; -ceFAZolin 2 GM/D5W 50 ML IV BAG (J0690 PER 500MG) As Ordered ONE; -ceFAZolin SOD 2 GM in IV 1 EA IV ONE; -diphenhydrAMINE 50MG/ML VIAL (J1200) As Ordered ONE; -fentaNYL 100 MCG/2 ML INJECTION (J3010) As Ordered ONE
[2020-10-11 09:08] VITALS: BP 112/53
--- NOTE | 2020-10-12 12:41 | IRPN ---
[facility] IR Progress Note IR Progress Note DATE: Oct 11, 2020 FOLLOW-UP: Status post port placement. Patient doing well. No fevers or chills or pain at site. ON EXAMINATION: Port site appears to be healing well. No redness, fluctuance or discharge. IMPRESSION: Doing well status post port placement. No further follow-up scheduled unless initiated by patient and/or referring provider. Thank you for this referral Allergies Coded Allergies: erythromycin base (Verified Allergy, Intermediate, rash, 08/17/20) risedronate sodium (Verified Adverse Reaction, Intermediate, BONE PAIN, 08/17/20) VS,Fishbone, I+O VS, Fishbone, I+O Vital Signs Date Time Temp Pulse Resp B/P (MAP) Pulse Ox O2 Delivery O2 Flow Rate FiO2 10/11/20 09:08 98.1 71 20 112/53 (72) 99 Room Air FELIX HILL MD Oct 12, 2020 12:41
== END ==
LOC: M IRPOV 08:42
PROVIDERS: ATTEND Radiology Diagnostic Radiology
DX: Z45.2 Encounter for adjustment and management of vascular access device (principal)

== ENCOUNTER → 2020-11-28 | Outpatient (CLI) | payer MEDICARE, MEDICAID ==
[~2020-11-28] MED LIST changes: +LIDO1CRE42 TOP; +ONDA-84 PO; -ONDA8TAB10 PO; -PROC10TA4 PO; +PROC10TA5 PO
== END ==
LOC: M PLARAD 09:57
PROVIDERS: ATTEND Internal Medicine Medical Oncology
DX: C81.98 Hodgkin lymphoma, unspecified, lymph nodes of multiple sites (principal); Z53.9 Procedure and treatment not carried out, unspecified reason

== ENCOUNTER → 2020-12-12 | Outpatient (CLI) | payer MEDICARE, MEDICAID ==
[~2020-12-12] MED LIST changes: -ONDA-84 PO; +ONDA8TAB10 PO; +PROC10TA4 PO; -PROC10TA5 PO
--- NOTE | 2020-12-12 13:41 | REP ---
INDICATION: RESTAGING LYMPHOMA. COMPARISON: 08/29/2020 TECHNIQUE: After the intravenous administration of 8.45 mCi of FDG 18 triplane whole-body PET-CT was performed from the skull base to the mid thigh. FINDINGS: The patient is currently on RCHOP. Patient has known biopsy proven bone involvement. All areas of abnormal hypermetabolism seen previously above and below the diaphragm on the prior exam have abated. There are, however, 2 new areas of abnormal hypermetabolic activity both in the pelvis and both posterior to the bony ridge to the posterior acetabulum. On the right, this has a maximal SUV value of 21.66 and on the left this has a maximal SUV value of 14.62. The nondiagnostic low-dose CT component of today's examination shows no evidence of a mass or adenopathy in that region. There is only a tiny amount of soft tissue density within normal adipose planes between the gluteal musculature and the bony surface. Additionally, in the subcutaneous adipose tissue at nearly the same level on the left there is an oval-shaped calcification likely secondary to an injection granulomata. There is extensive hypermetabolism seen throughout the bone marrow with maximal SUV values of 4.06. IMPRESSION: There has been marked and significant improvement in the degree of hypermetabolism as described above. The 2 areas of hypermetabolic activity seen in the pelvis are of uncertain etiology as this is not the normal anatomical site for lymphadenopathy. I wonder if the finding could be secondary to deep intramuscular injections as there is an injection granuloma seen on the left as described above. This would all need to be correlated clinically. The diffuse extensive marrow hypermetabolism seen today is likely due to a combination of chemo reactive change and the already known marrow involvement of the patient's primary disease. <Electronically signed by Umesh Flores > 12/12/20 [id number]
== END ==
LOC: M PLARAD 07:35
PROVIDERS: ATTEND Internal Medicine Medical Oncology
DX: C81.98 Hodgkin lymphoma, unspecified, lymph nodes of multiple sites (principal)
CPT/HCPCS: 78815; A9552

== ENCOUNTER → 2021-02-20 | Outpatient (CLI) | payer MEDICARE, MEDICAID | LOC: M PLARAD 07:32 | PROVIDERS: ATTEND Specialist | DX: C82.98 Follicular lymphoma, unspecified, lymph nodes of multiple sites (principal); Z53.9 Procedure and treatment not carried out, unspecified reason ==

== ENCOUNTER → 2021-06-26 | Outpatient (CLI) | payer MEDICAID, MEDICARE ==
[~2021-06-26] MED LIST changes: +ONDA-84 PO; -ONDA8TAB10 PO; -PROC10TA4 PO; +PROC10TA5 PO
== END ==
LOC: M PLARAD 07:32
PROVIDERS: ATTEND Specialist
DX: R93.89 Abnormal findings on diagnostic imaging of other specified body structures (principal); C82.98 Follicular lymphoma, unspecified, lymph nodes of multiple sites
CPT/HCPCS: 78815; A9552

== ENCOUNTER → 2021-09-04 | Outpatient (CLI) | payer MEDICARE, MEDICAID | LOC: M WHC 12:13 | PROVIDERS: ATTEND Nurse Practitioner Family | DX: M81.0 Age-related osteoporosis without current pathological fracture (principal); M85.88 Other specified disorders of bone density and structure, other site ==

== ENCOUNTER → 2021-11-20 | Outpatient (CLI) | payer MEDICARE, MEDICAID ==
[~2021-11-20] MED LIST changes: +PROHANCE 279.3MG/ML 15ML VIAL As Ordered ONE
== END ==
LOC: M RAD 12:39
PROVIDERS: ATTEND Internal Medicine Medical Oncology
DX: C85.90 Non-Hodgkin lymphoma, unspecified, unspecified site (principal); M16.0 Bilateral primary osteoarthritis of hip
CPT/HCPCS: 72197; A9576

== ENCOUNTER → 2022-01-22 | Outpatient (CLI) | payer MEDICAID, MEDICARE ==
[~2022-01-22] MED LIST changes: -PROHANCE 279.3MG/ML 15ML VIAL As Ordered ONE
== END ==
LOC: M PLARAD 08:30
PROVIDERS: ATTEND Internal Medicine Medical Oncology
DX: C85.94 Non-Hodgkin lymphoma, unspecified, lymph nodes of axilla and upper limb (principal)
CPT/HCPCS: 78815; A9552

== ENCOUNTER → 2022-03-19 | Outpatient (REF) | payer MEDICARE, MEDICAID ==
[~2022-03-19] MED LIST changes: +CLOP75TA99 PO; +METO25TA4 PO; -PLAV1TAB2 PO
[2022-03-19 15:47] LABS: CHLORIDE LEVEL 106 MMOL/L (98-107); SODIUM LEVEL 144 MMOL/L (136-145)
[2022-03-19 15:48] LABS: ALBUMIN 3.6 G/DL (3.2-5.2); CARBON DIOXIDE LEVEL 30 MMOL/L (20-31)
[2022-03-19 15:51] LABS: PTH INTACT 123.4 PG/ML (18.5-88.0)
[2022-03-19 15:53] LABS: BLOOD UREA NITROGEN 15 MG/DL (9-23); GLUCOSE, FASTING 65 MG/DL (74-106); TRIGLYCERIDES LEVEL 67 MG/DL (<150)
[2022-03-19 15:54] LABS: ALKALINE PHOSPHATASE 71 U/L (46-116); CALCIUM LEVEL 9.2 MG/DL (8.3-10.6)
[2022-03-19 15:55] LABS: ALT/SGPT 27 U/L (7.0-40); BILIRUBIN,TOTAL 0.4 MG/DL (0.3-1.2); HDL CHOLESTEROL 49.7 MG/DL (>40); THYROID STIMULATING HORMONE 1.119 uIU/ML (0.55-4.78)
[2022-03-19 15:56] LABS: AST/SGOT 25 U/L (<34); CHOLESTEROL LEVEL 111 MG/DL (<200); CHOLESTEROL RISK RATIO 2.23 (<5); LDL CHOLESTEROL 47.9 MG/DL (<100); NON-HDL-C 61 MG/DL; TOTAL 25(OH) VITAMIN D 37.6 NG/ML (20.0-100.0)
[2022-03-19 15:57] LABS: FREE T4 0.96 NG/DL (0.89-1.76)
[2022-03-19 16:18] LABS: CREATININE FOR GFR 0.64 MG/DL (0.55-1.30); GLOMERULAR FILTRATION RATE > 60.0 (>39); MALB URINE SIEMENS < 5.0 MG/DL
[2022-03-19 16:20] LABS: CREATININE, URINE 21.4 MG/DL; MAU/CREAT RATIO 23.3 MCG/MG (0.0-30.0)
[2022-03-19 20:08] LABS: HEMOGLOBIN A1c 6.7 % (4.0-6.0)
== END ==
LOC: M LAB REF 14:14
PROVIDERS: ATTEND Nurse Practitioner Family
DX: E78.2 Mixed hyperlipidemia (principal); E55.9 Vitamin D deficiency, unspecified; E11.40 Type 2 diabetes mellitus with diabetic neuropathy, unspecified

== ENCOUNTER → 2022-08-22 | Outpatient (CLI) | payer MEDICAID, MEDICARE ==
[~2022-08-22] MED LIST changes: +OMEG100011 PO
== END ==
LOC: M WHC 12:56
PROVIDERS: ATTEND Nurse Practitioner Family
DX: Z12.31 Encounter for screening mammogram for malignant neoplasm of breast (principal)

== ENCOUNTER → 2022-09-12 | Outpatient (REF) | payer MEDICARE ==
[2022-09-12 13:54] LABS: BASO # 0.1 10^3/uL (0.0-0.2); BASO % 1.5 % (0.0-1.0); EOS # 0.3 10^3/uL (0.0-0.5); EOS % 5.5 % (0.0-3.0); HEMATOCRIT 36.2 % (36.0-47.0); HEMOGLOBIN 12.1 g/dl (12.0-15.5); LYMPH # 0.7 10^3/uL (1.5-5.0); MEAN CORPUSCULAR HEMOGLOBIN 33.4 pg (27.0-33.0); MEAN CORPUSCULAR HGB CONC 33.4 g/dl (32.0-36.5); MONO # 0.6 10^3/uL (0.0-0.8); MONO % 11.5 % (2.0-8.0); NEUTROPHILS # 3.2 10^3/uL (1.5-8.5); NEUTROPHILS % 67.1 % (36.0-66.0); PLATELET COUNT, AUTOMATED 162 10^3/uL (150-450); RED BLOOD COUNT 3.62 10^6/uL (4.00-5.40); WHITE BLOOD COUNT 4.8 10^3/uL (4.0-10.0)
[2022-09-12 14:19] LABS: ALBUMIN 3.6 G/DL (3.2-5.2); ALKALINE PHOSPHATASE 75 U/L (46-116); ALT/SGPT 23 U/L (7.0-40); AST/SGOT 20 U/L (<34); BILIRUBIN,TOTAL 0.3 MG/DL (0.3-1.2); BLOOD UREA NITROGEN 20 MG/DL (9-23); CALCIUM LEVEL 8.8 MG/DL (8.3-10.6); CARBON DIOXIDE LEVEL 30 MMOL/L (20-31); CHLORIDE LEVEL 107 MMOL/L (98-107); CHOLESTEROL LEVEL 109 MG/DL (<200); CREATININE FOR GFR 0.72 MG/DL (0.55-1.30); GLOMERULAR FILTRATION RATE > 60.0 (>39); GLUCOSE, FASTING 184 MG/DL (74-106); HDL CHOLESTEROL 43.5 MG/DL (>40); LDL CHOLESTEROL 43.7 MG/DL (<100); NON-HDL-C 65.5 MG/DL; POTASSIUM SERUM 4.2 MMOL/L (3.5-5.1); PTH INTACT 157.5 PG/ML (18.5-88.0); SODIUM LEVEL 136 MMOL/L (136-145); TOTAL PROTEIN 5.9 G/DL (5.7-8.2); TRIGLYCERIDES LEVEL 109 MG/DL (<150)
[2022-09-12 14:20] LABS: THYROID STIMULATING HORMONE 0.787 uIU/ML (0.55-4.78); TOTAL 25(OH) VITAMIN D 35.9 NG/ML (20.0-100.0); VITAMIN B12 LEVEL 942 PG/ML (211-911)
[2022-09-12 14:21] LABS: FREE T4 1.02 NG/DL (0.89-1.76)
[2022-09-12 15:36] LABS: HEMOGLOBIN A1c 7.2 % (4.0-6.0)
== END ==
LOC: M LAB REF 13:16
PROVIDERS: ATTEND Nurse Practitioner Family
DX: E55.9 Vitamin D deficiency, unspecified (principal); E21.3 Hyperparathyroidism, unspecified; D75.89 Other specified diseases of blood and blood-forming organs; E53.8 Deficiency of other specified B group vitamins; E11.40 Type 2 diabetes mellitus with diabetic neuropathy, unspecified; E78.2 Mixed hyperlipidemia

== ENCOUNTER → 2022-11-27 | Outpatient (CLI) | payer MEDICAID, MEDICARE ==
[~2022-11-27] MED LIST changes: -LIDO1CRE42 TOP; +LIDO30CR18 TOP
== END ==
LOC: M PLARAD 10:18
PROVIDERS: ATTEND Internal Medicine Hematology & Oncology
DX: C82.48 Follicular lymphoma grade IIIb, lymph nodes of multiple sites (principal); Z95.828 Presence of other vascular implants and grafts; R93.5 Abnormal findings on diagnostic imaging of other abdominal regions, including retroperitoneum
CPT/HCPCS: 78815; A9552

== ENCOUNTER 2023-02-12 20:03 | Inpatient (IN) | payer MEDICAID, MEDICARE ==
[~2023-02-12] VITALS: Ht 146.1 cm; Wt 48.0 kg
[~2023-02-12 20:03] MED LIST changes: +EQL50TAB2 PO
[2023-02-12] MEDS ORDERED: ONDANSETRON 4MG 2ML VIAL IV ONE (21:20)
[2023-02-12 21:29] LABS: INR 1.46; PARTIAL THROMBOPLASTIN TIME 34.7 SECONDS (24.8-34.2); PROTHROMBIN TIME 17.3 SECONDS (12.5-14.5)
[2023-02-12 21:32] LABS: BASO # 0.1 10^3/uL (0.0-0.2); EOS # 0.2 10^3/uL (0.0-0.5); EOS % 4.1 % (0.0-3.0); HEMATOCRIT 37.8 % (36.0-47.0); HEMOGLOBIN 12.7 g/dl (12.0-15.5); LYMPH # 0.9 10^3/uL (1.5-5.0); LYMPH % 15.1 % (24.0-44.0); MEAN CORPUSCULAR HGB CONC 33.6 g/dl (32.0-36.5); MEAN CORPUSCULAR VOLUME 101.1 fl (80.0-96.0); MONO # 0.8 10^3/uL (0.0-0.8); MONO % 13.9 % (2.0-8.0); NEUTROPHILS # 3.8 10^3/uL (1.5-8.5); NEUTROPHILS % 65.6 % (36.0-66.0); PLATELET COUNT, AUTOMATED 163 10^3/uL (150-450); RED BLOOD COUNT 3.74 10^6/uL (4.00-5.40); WHITE BLOOD COUNT 5.8 10^3/uL (4.0-10.0)
[2023-02-12 21:34] LABS: BLOOD UREA NITROGEN 18 MG/DL (9-23); CALCIUM LEVEL 8.5 MG/DL (8.3-10.6); CARBON DIOXIDE LEVEL 32 MMOL/L (20-31); CHLORIDE LEVEL 105 MMOL/L (98-107); CREATININE FOR GFR 0.74 MG/DL (0.55-1.30); GLOMERULAR FILTRATION RATE > 60.0 (>39); GLUCOSE, FASTING 243 MG/DL (74-106); POTASSIUM SERUM 4.6 MMOL/L (3.5-5.1); SODIUM LEVEL 141 MMOL/L (136-145)
[2023-02-12] MEDS: MORPHINE 4 MG/ML 1ML VIAL IV PRN ×2 (21:45→22:47)
[2023-02-12 22:53] LABS: RSV AMPLIFICATION NEGATIVE (NEGATIVE)
[2023-02-13] VITALS (27 sets, daily range): BP systolic 107–160; BP diastolic 52–66; TEMP 97–100.1; O2SAT 86–100
[2023-02-13] MEDS ORDERED: ONDANSETRON 4MG 2ML VIAL IV PRN ×2 (00:15→19:55)
[2023-02-13] MEDS ORDERED: GLUCAGON INJ 1MG VIAL SC PRN (00:15)
[2023-02-13] MEDS ORDERED: GLUCOSE 4GM CHEW TABLET PO PRN (00:15)
[2023-02-13] MEDS ORDERED: HYDROMORPHONE HCL 0.5 MG/ 0.5 ML SYRINGE IV PRN ×5 (00:15→19:55)
[2023-02-13] MEDS ORDERED: PILL CUTTER 1 EACH XX PRN (00:35)
[2023-02-13] MEDS: INSULIN LISPRO (NovoLOG) PER UNIT SC SCH ×5 (00:35→21:00)
[2023-02-13] MEDS ORDERED: ACET-897 PO (01:45)
[2023-02-13] MEDS ORDERED: HOME MED LIST COMPLETE! XX SCH (01:45)
[2023-02-13] MEDS ORDERED: METO1TAB32 PO (01:45)
[2023-02-13] MEDS ORDERED: OYST500T92 PO (01:45)
[2023-02-13] MEDS ORDERED: SALI0.6530 (01:45)
[2023-02-13] MEDS ORDERED: VITATAB31 PO (01:45)
[2023-02-13] MEDS ORDERED: ELIQ5TAB PO (01:45)
[2023-02-13] MEDS ORDERED: diphenhydrAMINE 25MG CAP PO PRN (02:00)
[2023-02-13] MEDS ORDERED: NITROGLYCERIN 0.4MG SUBL TABLET SL PRN (02:00)
[2023-02-13] MEDS ORDERED: D5W/0.45% SODIUM CHLORIDE 1,000 ML IV SCH (02:00)
[2023-02-13] MEDS ORDERED: NALOXONE INJ 0.4MG/1ML VIAL IV PRN (02:40)
[2023-02-13 05:04] LABS: HEMATOCRIT 40.4 % (36.0-47.0); HEMOGLOBIN 13.2 g/dl (12.0-15.5); MEAN CORPUSCULAR HEMOGLOBIN 33.5 pg (27.0-33.0); MEAN CORPUSCULAR HGB CONC 32.7 g/dl (32.0-36.5); MEAN CORPUSCULAR VOLUME 102.5 fl (80.0-96.0); PLATELET COUNT, AUTOMATED 188 10^3/uL (150-450); RED BLOOD COUNT 3.94 10^6/uL (4.00-5.40); WHITE BLOOD COUNT 8.7 10^3/uL (4.0-10.0)
[2023-02-13 05:25] LABS: BLOOD UREA NITROGEN 19 MG/DL (9-23); CALCIUM LEVEL 9.1 MG/DL (8.3-10.6); CARBON DIOXIDE LEVEL 34 MMOL/L (20-31); CHLORIDE LEVEL 106 MMOL/L (98-107); CREATININE FOR GFR 0.85 MG/DL (0.55-1.30); GLOMERULAR FILTRATION RATE > 60.0 (>39); GLUCOSE, FASTING 55 MG/DL (74-106); MAGNESIUM LEVEL 1.8 MG/DL (1.8-2.4); POTASSIUM SERUM 4.4 MMOL/L (3.5-5.1); SODIUM LEVEL 146 MMOL/L (136-145)
[2023-02-13] MEDS: DEXTROSE 50% 50ML SYRINGE IV PRN (05:35)
[2023-02-13] MEDS: D5W/0.45% SODIUM CHLORIDE 1,000 ML IV SCH ×2 (05:41→16:07)
[2023-02-13] MEDS ORDERED: NS 1,000 ML IV ONE (08:05)
[2023-02-13] MEDS: HYDROMORPHONE HCL 0.5 MG/ 0.5 ML SYRINGE IV PRN ×2 (08:22→13:43)
[2023-02-13] MEDS ORDERED: LEVEMIR (INSULIN DETEMIR) 1 UNITS/0.01ML SC SCH (09:00)
[2023-02-13] MEDS: METOPROLOL SUCC *XL* 12.5MG PER 1/2 TAB (TopROL *XL*) PO SCH (10:23)
[2023-02-13] MEDS: ASPIRIN 81MG ENTERIC TABLET PO SCH (10:24)
[2023-02-13] MEDS: tiZANidine 4 MG TAB PO PRN (10:24)
[2023-02-13] MEDS: GABAPENTIN 100 MG CAP PO SCH ×3 (10:24→21:20)
[2023-02-13] MEDS: ACETAMINOPHEN TAB 650MG DOSE (2X325MG) PO PRN (15:53)
[2023-02-13] MEDS ORDERED: fentaNYL 100 MCG/2 ML INJECTION As Ordered ONE (17:48)
[2023-02-13] MEDS ORDERED: ONDANSETRON 4MG 2ML VIAL As Ordered ONE (17:49)
[2023-02-13] MEDS ORDERED: LIDOCAINE 2% 100MG/5ML SDV (FOR ANES.) As Ordered ONE (17:49)
[2023-02-13] MEDS ORDERED: propofoL 200 MG/20 ML VIAL As Ordered ONE (17:49)
[2023-02-13] MEDS ORDERED: MIDAZOLAM INJ 2MG/2ML VIAL As Ordered ONE (17:49)
[2023-02-13] MEDS ORDERED: ROCURONIUM BROMIDE 50MG/5ML VIAL As Ordered ONE (18:04)
[2023-02-13] MEDS ORDERED: METOCLOPRAMIDE INJ 10MG/2ML VIAL As Ordered ONE (18:04)
[2023-02-13] MEDS ORDERED: SUGAMMADEX SODIUM 500 MG/5 ML VIAL (BRIDION) As Ordered ONE (19:08)
[2023-02-13] MEDS ORDERED: ACETAMINOPHEN 1000MG 100ML IV BAG As Ordered ONE (19:11)
[2023-02-13] MEDS ORDERED: fentaNYL 100 MCG/2 ML INJECTION IV PRN (19:55)
[2023-02-13] MEDS ORDERED: LR 1,000 ML IV SCH (19:55)
[2023-02-13] MEDS ORDERED: oxyCODONE 5MG TAB PO PRN (19:55)
[2023-02-13] MEDS: NYSTATIN CREAM 15GM TOP SCH (21:19)
[2023-02-13] MEDS: ATORVASTATIN 20 MG TAB PO SCH (21:20)
[2023-02-14] VITALS (18 sets, daily range): BP systolic 101–111; BP diastolic 51–58; TEMP 97.2–100.3; O2SAT 91–99
[2023-02-14] MEDS: ceFAZolin SOD 2 GM in IV 1 EA IV SCH ×2 (02:44→12:02)
[2023-02-14 04:52] LABS: BASO % 0.1 % (0.0-1.0); HEMATOCRIT 32.3 % (36.0-47.0); LYMPH # 0.2 10^3/uL (1.5-5.0); MEAN CORPUSCULAR HEMOGLOBIN 33.1 pg (27.0-33.0); MEAN CORPUSCULAR HGB CONC 32.5 g/dl (32.0-36.5); MEAN CORPUSCULAR VOLUME 101.9 fl (80.0-96.0); MONO # 0.7 10^3/uL (0.0-0.8); NEUTROPHILS # 8.4 10^3/uL (1.5-8.5); NEUTROPHILS % 90.7 % (36.0-66.0); PLATELET COUNT, AUTOMATED 151 10^3/uL (150-450); RED BLOOD COUNT 3.17 10^6/uL (4.00-5.40); WHITE BLOOD COUNT 9.3 10^3/uL (4.0-10.0)
[2023-02-14 05:02] LABS: HEMOGLOBIN 10.5 g/dl (12.0-15.5)
[2023-02-14 05:12] LABS: BLOOD UREA NITROGEN 17 MG/DL (9-23); CALCIUM LEVEL 8.3 MG/DL (8.3-10.6); CARBON DIOXIDE LEVEL 23 MMOL/L (20-31); CHLORIDE LEVEL 105 MMOL/L (98-107); GLOMERULAR FILTRATION RATE > 60.0 (>39); GLUCOSE, FASTING 304 MG/DL (74-106); POTASSIUM SERUM 4.4 MMOL/L (3.5-5.1); SODIUM LEVEL 139 MMOL/L (136-145)
[2023-02-14 05:14] LABS: FOLATE > 24.00 NG/ML (>5.4); VITAMIN B12 LEVEL 690 PG/ML (211-911)
[2023-02-14] MEDS ORDERED: HumuLIN R (REGULAR) INSULIN (NovoLIN R) **100U/ML** PER UNIT IV STA ×3 (09:09→11:53)
[2023-02-14] MEDS: INSULIN LISPRO (NovoLOG) PER UNIT SC SCH ×5 (09:10→21:00)
[2023-02-14] MEDS: METOPROLOL SUCC *XL* 12.5MG PER 1/2 TAB (TopROL *XL*) PO SCH (09:10)
[2023-02-14] MEDS: ASPIRIN 81MG ENTERIC TABLET PO SCH (09:10)
[2023-02-14] MEDS: ACETAMINOPHEN TAB 650MG DOSE (2X325MG) PO PRN ×2 (09:10→13:23)
[2023-02-14] MEDS: NYSTATIN CREAM 15GM TOP SCH ×2 (09:11→21:00)
[2023-02-14] MEDS: tiZANidine 4 MG TAB PO PRN (09:11)
[2023-02-14] MEDS: GABAPENTIN 100 MG CAP PO SCH ×3 (09:11→21:34)
[2023-02-14] MEDS: LEVEMIR (INSULIN DETEMIR) 1 UNITS/0.01ML SC SCH (10:40)
[2023-02-14 13:13] LABS: BLOOD UREA NITROGEN 24 MG/DL (9-23); CALCIUM LEVEL 8.3 MG/DL (8.3-10.6); CARBON DIOXIDE LEVEL 26 MMOL/L (20-31); CHLORIDE LEVEL 105 MMOL/L (98-107); CREATININE FOR GFR 0.76 MG/DL (0.55-1.30); GLOMERULAR FILTRATION RATE > 60.0 (>39); GLUCOSE, FASTING 394 MG/DL (74-106); POTASSIUM SERUM 4.1 MMOL/L (3.5-5.1); SODIUM LEVEL 140 MMOL/L (136-145)
[2023-02-14 13:57] LABS: APPEARANCE, URINE HAZY (CLEAR); BACTERIA, URINE AUTO NEGATIVE (NEGATIVE); BILIRUBIN, URINE AUTO NEGATIVE (NEGATIVE); BLOOD, URINE BLOOD 1+ (NEGATIVE); COLOR, URINE YELLOW (YELLOW); GLUCOSE, URINE (UA) AUTO 3+ mg/dL (NEGATIVE); KETONE, URINE AUTO 1+ mg/dL (NEGATIVE); LEUKOCYTE ESTERASE, URINE AUTO 2+ (NEGATIVE); MUCUS, URINE SMALL (NEGATIVE); NITRITE, URINE AUTO NEGATIVE (NEGATIVE); PROTEIN, URINE AUTO NEGATIVE (NEGATIVE); RBC, URINE AUTO 3 /HPF (0-3); SPECIFIC GRAVITY URINE AUTO 1.024 (1.002-1.035); SQUAMOUS EPITHELIAL CELL UR AU 0 /HPF (0-6); UROBILINOGEN, URINE AUTO 0.2 mg/dL (0.0-2.0); WBC, URINE AUTO 43 /HPF (0-3)
[2023-02-14] MEDS: PERCOCET 5MG/325MG TAB PO PRN (14:37)
[2023-02-14] MEDS: DEXTROSE 50% 50ML SYRINGE IV PRN (21:32)
[2023-02-14] MEDS: ATORVASTATIN 20 MG TAB PO SCH (21:34)
[2023-02-14] MEDS: CEFDINIR 300 MG CAP (OMNICEF) PO SCH (21:34)
[2023-02-14] MEDS: APIXABAN 5 MG TAB (ELIQUIS) PO SCH (21:34)
[2023-02-14 22:19] LABS: CALCIUM LEVEL 8.2 MG/DL (8.3-10.6); CREATININE FOR GFR 1.03 MG/DL (0.55-1.30); GLOMERULAR FILTRATION RATE 56.2 (>39); POTASSIUM SERUM 3.9 MMOL/L (3.5-5.1)
[2023-02-15] VITALS (21 sets, daily range): BP systolic 94–141; BP diastolic 49–65; TEMP 97.6–99.6; O2SAT 92–99
[2023-02-15] MEDS: PERCOCET 5MG/325MG TAB PO PRN ×2 (02:13→18:15)
[2023-02-15] MEDS ORDERED: MAGNESIUM CITRATE 300ML BTL PO ONE (06:45)
[2023-02-15] MEDS ORDERED: BISACODYL 10MG SUPP PR ONE (06:45)
[2023-02-15 07:35] LABS: BASO % 0.4 % (0.0-1.0); EOS # 0.1 10^3/uL (0.0-0.5); EOS % 1.4 % (0.0-3.0); HEMATOCRIT 26.9 % (36.0-47.0); HEMOGLOBIN 9.2 g/dl (12.0-15.5); LYMPH # 0.5 10^3/uL (1.5-5.0); LYMPH % 6.5 % (24.0-44.0); MEAN CORPUSCULAR HEMOGLOBIN 34.7 pg (27.0-33.0); MEAN CORPUSCULAR HGB CONC 34.2 g/dl (32.0-36.5); MEAN CORPUSCULAR VOLUME 101.5 fl (80.0-96.0); MONO # 1.1 10^3/uL (0.0-0.8); MONO % 13.3 % (2.0-8.0); NEUTROPHILS # 6.2 10^3/uL (1.5-8.5); NEUTROPHILS % 78.3 % (36.0-66.0); PLATELET COUNT, AUTOMATED 143 10^3/uL (150-450); RED BLOOD COUNT 2.65 10^6/uL (4.00-5.40)
[2023-02-15] MEDS: ASPIRIN 81MG ENTERIC TABLET PO SCH (07:50)
[2023-02-15] MEDS: INSULIN LISPRO (NovoLOG) PER UNIT SC SCH ×7 (07:51→20:24)
[2023-02-15] MEDS: APIXABAN 5 MG TAB (ELIQUIS) PO SCH ×2 (07:52→20:21)
[2023-02-15] MEDS: LEVEMIR (INSULIN DETEMIR) 1 UNITS/0.01ML SC SCH (07:52)
[2023-02-15] MEDS: SENOKOT S TAB PO SCH ×2 (07:52→20:21)
[2023-02-15] MEDS: CEFDINIR 300 MG CAP (OMNICEF) PO SCH ×2 (07:52→20:23)
[2023-02-15] MEDS: GABAPENTIN 100 MG CAP PO SCH ×3 (07:52→20:21)
[2023-02-15] MEDS: NYSTATIN CREAM 15GM TOP SCH ×2 (07:53→20:24)
[2023-02-15] MEDS: METOPROLOL SUCC *XL* 12.5MG PER 1/2 TAB (TopROL *XL*) PO SCH (07:58)
[2023-02-15] MEDS: ATORVASTATIN 20 MG TAB PO SCH (20:20)
[2023-02-16] VITALS (14 sets, daily range): BP systolic 110–139; BP diastolic 50–64; TEMP 97.7–98.9; O2SAT 88–99
[2023-02-16] MEDS: INSULIN LISPRO (NovoLOG) PER UNIT SC SCH ×4 (06:52→20:24)
[2023-02-16 08:52] LABS: BLOOD UREA NITROGEN 26 MG/DL (9-23); CALCIUM LEVEL 8.4 MG/DL (8.3-10.6); CARBON DIOXIDE LEVEL 27 MMOL/L (20-31); CHLORIDE LEVEL 104 MMOL/L (98-107); CREATININE FOR GFR 0.72 MG/DL (0.55-1.30); GLOMERULAR FILTRATION RATE > 60.0 (>39); GLUCOSE, FASTING 360 MG/DL (74-106); MAGNESIUM LEVEL 1.8 MG/DL (1.8-2.4); POTASSIUM SERUM 4.7 MMOL/L (3.5-5.1); SODIUM LEVEL 140 MMOL/L (136-145)
[2023-02-16] MEDS: GABAPENTIN 100 MG CAP PO SCH ×3 (09:24→20:36)
[2023-02-16] MEDS: LEVEMIR (INSULIN DETEMIR) 1 UNITS/0.01ML SC SCH (09:24)
[2023-02-16] MEDS: SENOKOT S TAB PO SCH ×2 (09:25→20:36)
[2023-02-16] MEDS: CEFDINIR 300 MG CAP (OMNICEF) PO SCH ×2 (09:25→20:36)
[2023-02-16] MEDS: ASPIRIN 81MG ENTERIC TABLET PO SCH (09:25)
[2023-02-16] MEDS: NYSTATIN CREAM 15GM TOP SCH ×2 (09:25→20:36)
[2023-02-16] MEDS: METOPROLOL SUCC *XL* 12.5MG PER 1/2 TAB (TopROL *XL*) PO SCH (09:25)
[2023-02-16] MEDS: ATORVASTATIN 20 MG TAB PO SCH (20:36)
[2023-02-16] MEDS: PERCOCET 5MG/325MG TAB PO PRN (23:15)
[2023-02-17 04:00] VITALS: BP 125/58; TEMP 99; O2SAT 91
[2023-02-17] MEDS: INSULIN LISPRO (NovoLOG) PER UNIT SC SCH ×7 (07:30→20:07)
[2023-02-17 07:35] LABS: HEMATOCRIT 24.5 % (36.0-47.0); HEMOGLOBIN 8.3 g/dl (12.0-15.5); MEAN CORPUSCULAR HEMOGLOBIN 34.4 pg (27.0-33.0); MEAN CORPUSCULAR HGB CONC 33.9 g/dl (32.0-36.5); MEAN CORPUSCULAR VOLUME 101.7 fl (80.0-96.0); PLATELET COUNT, AUTOMATED 135 10^3/uL (150-450); RED BLOOD COUNT 2.41 10^6/uL (4.00-5.40); WHITE BLOOD COUNT 8.7 10^3/uL (4.0-10.0)
[2023-02-17 08:01] VITALS: BP 121/60; TEMP 98.4; O2SAT 92
[2023-02-17 08:04] LABS: ATYPICAL LYMPH 2 % (0-5); EOSINOPHILS 3 % (0-3); LYMPHOCYTES 1 % (16-44); MONOCYTES 11 % (0-5); NEUTROPHILS 83 % (28-66)
[2023-02-17 08:05] LABS: PLATELET ESTIMATE DECREASED (NORMAL); POLYCHROMASIA 1+
[2023-02-17 08:08] LABS: BLOOD UREA NITROGEN 24 MG/DL (9-23); CARBON DIOXIDE LEVEL 30 MMOL/L (20-31); CHLORIDE LEVEL 102 MMOL/L (98-107); CREATININE FOR GFR 0.79 MG/DL (0.55-1.30); GLOMERULAR FILTRATION RATE > 60.0 (>39); GLUCOSE, FASTING 274 MG/DL (74-106); POTASSIUM SERUM 4.8 MMOL/L (3.5-5.1); SODIUM LEVEL 138 MMOL/L (136-145)
[2023-02-17] MEDS: LEVEMIR (INSULIN DETEMIR) 1 UNITS/0.01ML SC SCH (09:40)
[2023-02-17] MEDS: ASPIRIN 81MG ENTERIC TABLET PO SCH (09:40)
[2023-02-17] MEDS: METOPROLOL SUCC *XL* 12.5MG PER 1/2 TAB (TopROL *XL*) PO SCH (09:41)
[2023-02-17] MEDS: SENOKOT S TAB PO SCH ×2 (09:41→20:14)
[2023-02-17] MEDS: NYSTATIN CREAM 15GM TOP SCH ×2 (09:41→20:15)
[2023-02-17] MEDS: APIXABAN 5 MG TAB (ELIQUIS) PO SCH ×2 (09:41→20:14)
[2023-02-17] MEDS: GABAPENTIN 100 MG CAP PO SCH ×3 (09:41→20:14)
[2023-02-17] MEDS: CEFDINIR 300 MG CAP (OMNICEF) PO SCH ×2 (09:42→20:17)
[2023-02-17 11:29] VITALS: BP 112/54; TEMP 97.5; O2SAT 94
[2023-02-17 19:05] VITALS: BP 100/55; TEMP 97.8; O2SAT 90
[2023-02-17] MEDS: ATORVASTATIN 20 MG TAB PO SCH (20:14)
[2023-02-17] MEDS: PERCOCET 5MG/325MG TAB PO PRN (20:15)
[2023-02-18 04:20] VITALS: BP 109/53; TEMP 98.6; O2SAT 95
[2023-02-18] MEDS: SODIUM CHLORIDE NASAL 0.65% SPRAY BTL (OCEAN) PRN ×4 (04:25→21:06)
[2023-02-18 05:05] LABS: BASO % 0.3 % (0.0-1.0); EOS # 0.3 10^3/uL (0.0-0.5); EOS % 4.3 % (0.0-3.0); HEMATOCRIT 23.1 % (36.0-47.0); HEMOGLOBIN 7.6 g/dl (12.0-15.5); LYMPH # 0.4 10^3/uL (1.5-5.0); LYMPH % 5.7 % (24.0-44.0); MEAN CORPUSCULAR HEMOGLOBIN 33.2 pg (27.0-33.0); MEAN CORPUSCULAR HGB CONC 32.9 g/dl (32.0-36.5); MEAN CORPUSCULAR VOLUME 100.9 fl (80.0-96.0); MONO # 0.7 10^3/uL (0.0-0.8); MONO % 10.5 % (2.0-8.0); NEUTROPHILS # 5.4 10^3/uL (1.5-8.5); NEUTROPHILS % 78.9 % (36.0-66.0); PLATELET COUNT, AUTOMATED 154 10^3/uL (150-450); RED BLOOD COUNT 2.29 10^6/uL (4.00-5.40); WHITE BLOOD COUNT 6.8 10^3/uL (4.0-10.0)
[2023-02-18 07:33] VITALS: BP 117/65; TEMP 98.6; O2SAT 95
[2023-02-18] MEDS: INSULIN LISPRO (NovoLOG) PER UNIT SC SCH ×7 (07:48→20:17)
[2023-02-18] MEDS: GABAPENTIN 100 MG CAP PO SCH ×3 (07:49→20:16)
[2023-02-18] MEDS: LEVEMIR (INSULIN DETEMIR) 1 UNITS/0.01ML SC SCH (07:49)
[2023-02-18] MEDS: NYSTATIN CREAM 15GM TOP SCH (07:49)
[2023-02-18] MEDS: ASPIRIN 81MG ENTERIC TABLET PO SCH (07:50)
[2023-02-18] MEDS: APIXABAN 5 MG TAB (ELIQUIS) PO SCH ×2 (07:50→20:16)
[2023-02-18] MEDS: METOPROLOL SUCC *XL* 12.5MG PER 1/2 TAB (TopROL *XL*) PO SCH (07:50)
[2023-02-18] MEDS: CEFDINIR 300 MG CAP (OMNICEF) PO SCH ×2 (07:50→20:16)
[2023-02-18] MEDS: SENOKOT S TAB PO SCH ×2 (07:50→20:16)
[2023-02-18] MEDS: PERCOCET 5MG/325MG TAB PO PRN ×2 (12:51→23:44)
[2023-02-18] MEDS: ATORVASTATIN 20 MG TAB PO SCH (20:17)
[2023-02-18 20:19] VITALS: BP 128/61; TEMP 98.7; O2SAT 96
[2023-02-19] MEDS: INSULIN LISPRO (NovoLOG) PER UNIT SC SCH ×4 (07:00→11:44)
[2023-02-19] MEDS: ACETAMINOPHEN TAB 650MG DOSE (2X325MG) PO PRN (07:52)
[2023-02-19] MEDS: GABAPENTIN 100 MG CAP PO SCH (07:52)
[2023-02-19] MEDS: APIXABAN 5 MG TAB (ELIQUIS) PO SCH (07:52)
[2023-02-19] MEDS: SENOKOT S TAB PO SCH (07:52)
[2023-02-19 07:55] VITALS: BP 131/60; TEMP 98.2; O2SAT 94
[2023-02-19 07:56] VITALS: BP 131/60
[2023-02-19] MEDS: ASPIRIN 81MG ENTERIC TABLET PO SCH (07:56)
[2023-02-19] MEDS: SODIUM CHLORIDE NASAL 0.65% SPRAY BTL (OCEAN) PRN (07:56)
[2023-02-19] MEDS: CEFDINIR 300 MG CAP (OMNICEF) PO SCH (07:56)
[2023-02-19] MEDS: METOPROLOL SUCC *XL* 12.5MG PER 1/2 TAB (TopROL *XL*) PO SCH (07:56)
[2023-02-19] MEDS: LEVEMIR (INSULIN DETEMIR) 1 UNITS/0.01ML SC SCH (07:57)
[2023-02-19] MEDS ORDERED: PERCOCET PO (12:30)
== END 2023-02-19 14:18 | disposition home health service (06) | DRG 481 ==
LOC: EDBD 20:03 → M ED 20:03 → M ED INP 02-13 00:12 → M PCU 02-13 01:20
PROVIDERS: ADMIT Internal Medicine; ATTEND Internal Medicine
PROC: 0QS736Z Reposition Left Upper Femur with Intramedullary Internal Fixation Device, Percutaneous Approach (ICD-10-PCS; principal; 2023-02-13 18:00)
DX: S72.142A Displaced intertrochanteric fracture of left femur, initial encounter for closed fracture (principal); E87.0 Hyperosmolality and hypernatremia; W01.0XXA Fall on same level from slipping, tripping and stumbling without subsequent striking against object, initial encounter; Y92.009 Unspecified place in unspecified non-institutional (private) residence as the place of occurrence of the external cause; I25.10 Atherosclerotic heart disease of native coronary artery without angina pectoris; I73.9 Peripheral vascular disease, unspecified; E11.42 Type 2 diabetes mellitus with diabetic polyneuropathy; I10 Essential (primary) hypertension; R33.9 Retention of urine, unspecified; E11.65 Type 2 diabetes mellitus with hyperglycemia; Z20.822 Contact with and (suspected) exposure to COVID-19; Z88.8 Allergy status to other drugs, medicaments and biological substances; Z88.1 Allergy status to other antibiotic agents; Z79.899 Other long term (current) drug therapy; Z79.4 Long term (current) use of insulin; Z79.82 Long term (current) use of aspirin; Z79.01 Long term (current) use of anticoagulants; Z98.41 Cataract extraction status, right eye; Z98.42 Cataract extraction status, left eye; Z95.5 Presence of coronary angioplasty implant and graft; Z95.828 Presence of other vascular implants and grafts; Z86.73 Personal history of transient ischemic attack (TIA), and cerebral infarction without residual deficits; Z85.72 Personal history of non-Hodgkin lymphomas

== ENCOUNTER → 2023-03-04 | Outpatient (CLI) | payer MEDICARE, MEDICAID ==
[~2023-03-04] MED LIST changes: +ACET-897 PO; +OYST500T92 PO; +PERCOCET PO; +SALI0.6530; +VITATAB31 PO
== END ==
LOC: M SOG 08:59
PROVIDERS: ATTEND Physician Assistant
DX: S72.142D Displaced intertrochanteric fracture of left femur, subsequent encounter for closed fracture with routine healing (principal)

== ENCOUNTER → 2023-04-05 | Outpatient (CLI) | payer MEDICARE, MEDICAID | LOC: M SOG 07:59 | PROVIDERS: ATTEND Physician Assistant | DX: S72.142D Displaced intertrochanteric fracture of left femur, subsequent encounter for closed fracture with routine healing (principal) ==

== ENCOUNTER → 2023-04-23 | Outpatient (REF) | payer MEDICARE, MEDICAID ==
[2023-04-23 17:30] LABS: APPEARANCE, URINE CLEAR (CLEAR); BACTERIA, URINE AUTO 1+ (NEGATIVE); BILIRUBIN, URINE AUTO NEGATIVE (NEGATIVE); BLOOD, URINE BLOOD NEGATIVE (NEGATIVE); COLOR, URINE YELLOW (YELLOW); GLUCOSE, URINE (UA) AUTO NEGATIVE (NEGATIVE); KETONE, URINE AUTO NEGATIVE (NEGATIVE); LEUKOCYTE ESTERASE, URINE AUTO 2+ (NEGATIVE); NITRITE, URINE AUTO NEGATIVE (NEGATIVE); PROTEIN, URINE AUTO NEGATIVE (NEGATIVE); RBC, URINE AUTO 1 /HPF (0-3); SPECIFIC GRAVITY URINE AUTO 1.013 (1.002-1.035); SQUAMOUS EPITHELIAL CELL UR AU 0 /HPF (0-6); UROBILINOGEN, URINE AUTO 0.2 mg/dL (0.0-2.0); WBC, URINE AUTO 37 /HPF (0-3)
== END ==
LOC: M SMT 16:54
PROVIDERS: ATTEND Urology
DX: R93.41 Abnormal radiologic findings on diagnostic imaging of renal pelvis, ureter, or bladder (principal); Z79.899 Other long term (current) drug therapy

== ENCOUNTER → 2023-05-17 | Outpatient (CLI) | payer MEDICARE, MEDICAID | LOC: M SOG 07:59 | PROVIDERS: ATTEND Physician Assistant | DX: S72.142D Displaced intertrochanteric fracture of left femur, subsequent encounter for closed fracture with routine healing (principal); M51.36 Other intervertebral disc degeneration, lumbar region; M51.37 Other intervertebral disc degeneration, lumbosacral region; Z95.828 Presence of other vascular implants and grafts ==

== ENCOUNTER → 2023-05-27 | Outpatient (CLI) | payer MEDICARE, MEDICAID | LOC: M PLARAD 09:37 | PROVIDERS: ATTEND Nurse Practitioner | DX: C82.91 Follicular lymphoma, unspecified, lymph nodes of head, face, and neck (principal) | CPT/HCPCS: 78815; A9552 ==

== ENCOUNTER → 2023-08-28 | Outpatient (REF) | payer MEDICARE ==
[~2023-08-28] MED LIST changes: -RAMI1CAP22 PO; +RAMI2.5C42 PO; -SALI0.6530; +SODI88SP
[2023-08-28 15:24] LABS: HEMOGLOBIN A1c 6.7 % (4.0-6.0)
[2023-08-28 15:28] LABS: CHOLESTEROL RISK RATIO 2.17 (<5); HDL CHOLESTEROL 47.4 MG/DL (>40); LDL CHOLESTEROL 49.4 MG/DL (<100); NON-HDL-C 55.6 MG/DL; PTH INTACT 60.8 PG/ML (18.5-88.0)
[2023-08-28 15:30] LABS: CREATININE, URINE 74.7 MG/DL; MAU/CREAT RATIO 6.6 MCG/MG (0.0-30.0)
[2023-08-28 15:34] LABS: TOTAL 25(OH) VITAMIN D 42.6 NG/ML (20.0-100.0)
== END ==
LOC: M SFHCPLAZ 13:29
PROVIDERS: ATTEND Nurse Practitioner Family
DX: E78.2 Mixed hyperlipidemia (principal); E11.49 Type 2 diabetes mellitus with other diabetic neurological complication; E21.3 Hyperparathyroidism, unspecified; E53.8 Deficiency of other specified B group vitamins; E55.9 Vitamin D deficiency, unspecified

== ENCOUNTER → 2023-09-17 | Outpatient (CLI) | payer MEDICARE | LOC: M WHC 12:53 | PROVIDERS: ATTEND Nurse Practitioner Family | DX: M81.0 Age-related osteoporosis without current pathological fracture (principal); M85.88 Other specified disorders of bone density and structure, other site ==

== ENCOUNTER → 2023-12-25 | Outpatient (CLI) | payer MEDICARE ==
[~2023-12-25] MED LIST changes: +LIDOCAINE 1% MDV 20ML VIAL As Ordered ONE; +MIDAZOLAM INJ 2MG/2ML VIAL As Ordered ONE; +ceFAZolin 2 GM/D5W 50 ML IV BAG As Ordered ONE; +fentaNYL 100 MCG/2 ML INJECTION As Ordered ONE
[2023-12-25 07:10] VITALS: TEMP 97.4
[2023-12-25] MEDS: NS 1,000 ML IV SCH (07:57)
[2023-12-25] MEDS: ceFAZolin SOD 2 GM in IV 1 EA IV ONE (07:57)
[2023-12-25 09:00] VITALS: BP 137/60; O2SAT 97
== END ==
LOC: M IRPRO 06:48
PROVIDERS: ATTEND Internal Medicine Medical Oncology
DX: C82.90 Follicular lymphoma, unspecified, unspecified site (principal)
CPT/HCPCS: 36590; 99152; J0690; J2250; J3010

== ENCOUNTER 2024-02-10 02:34 | Emergency (ER) | payer MEDICAID, MEDICARE ==
[~2024-02-10] VITALS: Ht 144.8 cm; Wt 43.2 kg
[~2024-02-10 02:34] MED LIST changes: -LIDOCAINE 1% MDV 20ML VIAL As Ordered ONE; -MIDAZOLAM INJ 2MG/2ML VIAL As Ordered ONE; -ceFAZolin 2 GM/D5W 50 ML IV BAG As Ordered ONE; -fentaNYL 100 MCG/2 ML INJECTION As Ordered ONE
[2024-02-10 02:44] VITALS: TEMP 97.2
[2024-02-10 03:04] LABS: BASO # 0.1 10^3/uL (0.0-0.2); BASO % 1.1 % (0.0-1.0); EOS # 0.2 10^3/uL (0.0-0.5); EOS % 5.3 % (0.0-3.0); HEMATOCRIT 40.9 % (36.0-47.0); HEMOGLOBIN 13.6 g/dl (12.0-15.5); LYMPH # 0.6 10^3/uL (1.5-5.0); LYMPH % 12.6 % (24.0-44.0); MEAN CORPUSCULAR HEMOGLOBIN 33.2 pg (27.0-33.0); MEAN CORPUSCULAR HGB CONC 33.3 g/dl (32.0-36.5); MEAN CORPUSCULAR VOLUME 99.8 fl (80.0-96.0); MONO # 0.5 10^3/uL (0.0-0.8); MONO % 11.9 % (2.0-8.0); NEUTROPHILS # 3.1 10^3/uL (1.5-8.5); NEUTROPHILS % 68.9 % (36.0-66.0); PLATELET COUNT, AUTOMATED 199 10^3/uL (150-450); WHITE BLOOD COUNT 4.5 10^3/uL (4.0-10.0)
[2024-02-10 03:40] LABS: BLOOD UREA NITROGEN 17 MG/DL (9-23); CALCIUM LEVEL 9.8 MG/DL (8.3-10.6); CARBON DIOXIDE LEVEL 30 MMOL/L (20-31); CHLORIDE LEVEL 109 MMOL/L (98-107); CREATININE FOR GFR 0.73 MG/DL (0.55-1.30); GLOMERULAR FILTRATION RATE > 60.0 (>39); GLUCOSE, FASTING 95 MG/DL (74-106); SODIUM LEVEL 142 MMOL/L (136-145)
[2024-02-10 05:30] VITALS: BP 115/58; O2SAT 95
== END 2024-02-10 05:47 | disposition home or self-care (01) ==
LOC: EDBD 02:34 → M ED 02:34
DX: E11.649 Type 2 diabetes mellitus with hypoglycemia without coma (principal); I25.10 Atherosclerotic heart disease of native coronary artery without angina pectoris; I25.2 Old myocardial infarction; I10 Essential (primary) hypertension; E78.5 Hyperlipidemia, unspecified; Z79.01 Long term (current) use of anticoagulants; Z79.82 Long term (current) use of aspirin; Z79.4 Long term (current) use of insulin; Z79.899 Other long term (current) drug therapy; Z88.1 Allergy status to other antibiotic agents; Z88.8 Allergy status to other drugs, medicaments and biological substances

== ENCOUNTER → 2024-03-09 | Outpatient (REF) | payer MEDICARE, MEDICAID ==
[2024-03-09 11:25] LABS: BASO # 0.1 10^3/uL (0.0-0.2); BASO % 1.2 % (0.0-1.0); EOS # 0.2 10^3/uL (0.0-0.5); EOS % 3.9 % (0.0-3.0); HEMATOCRIT 39.1 % (36.0-47.0); LYMPH # 0.6 10^3/uL (1.5-5.0); LYMPH % 10.9 % (24.0-44.0); MEAN CORPUSCULAR HEMOGLOBIN 33.5 pg (27.0-33.0); MEAN CORPUSCULAR HGB CONC 33.2 g/dl (32.0-36.5); MEAN CORPUSCULAR VOLUME 100.8 fl (80.0-96.0); MONO # 0.6 10^3/uL (0.0-0.8); MONO % 10.2 % (2.0-8.0); NEUTROPHILS # 4.2 10^3/uL (1.5-8.5); NEUTROPHILS % 73.4 % (36.0-66.0); PLATELET COUNT, AUTOMATED 198 10^3/uL (150-450); RED BLOOD COUNT 3.88 10^6/uL (4.00-5.40); WHITE BLOOD COUNT 5.7 10^3/uL (4.0-10.0)
[2024-03-09 11:40] LABS: HEMOGLOBIN A1c 6.5 % (4.0-6.0)
[2024-03-09 11:57] LABS: ALBUMIN 3.3 G/DL (3.2-5.2); ALKALINE PHOSPHATASE 80 U/L (35-104); ALT/SGPT 29 U/L (7.0-40); AST/SGOT 22 U/L (<34); BILIRUBIN,TOTAL 0.4 MG/DL (0.3-1.2); BLOOD UREA NITROGEN 19 MG/DL (9-23); CALCIUM LEVEL 9.3 MG/DL (8.3-10.6); CARBON DIOXIDE LEVEL 30 MMOL/L (20-31); CHLORIDE LEVEL 109 MMOL/L (98-107); CHOLESTEROL LEVEL 110 MG/DL (<200); CHOLESTEROL RISK RATIO 2.55 (<5); CREATININE FOR GFR 0.71 MG/DL (0.55-1.30); GLOMERULAR FILTRATION RATE > 60.0 (>39); GLUCOSE, FASTING 60 MG/DL (74-106); LDL CHOLESTEROL 52.2 MG/DL (<100); PTH INTACT 59.7 PG/ML (18.5-88.0); SODIUM LEVEL 144 MMOL/L (136-145); TOTAL PROTEIN 6.1 G/DL (5.7-8.2); TRIGLYCERIDES LEVEL 74 MG/DL (<150); VITAMIN B12 LEVEL 1002 PG/ML (211-911)
== END ==
LOC: M LAB REF 10:45
PROVIDERS: ATTEND Nurse Practitioner Family
DX: E55.9 Vitamin D deficiency, unspecified (principal); E11.40 Type 2 diabetes mellitus with diabetic neuropathy, unspecified; E21.3 Hyperparathyroidism, unspecified; E53.8 Deficiency of other specified B group vitamins; E78.2 Mixed hyperlipidemia

== ENCOUNTER 2024-03-18 10:19 | Emergency (ER) | payer MEDICARE, MEDICAID ==
[~2024-03-18] VITALS: Ht 144.8 cm; Wt 43.7 kg
[~2024-03-18 10:19] MED LIST changes: -HOLTER MONITOR XX
[2024-03-18 11:19] LABS: BASO # 0.1 10^3/uL (0.0-0.2); BASO % 1.2 % (0.0-1.0); EOS # 0.2 10^3/uL (0.0-0.5); EOS % 3.4 % (0.0-3.0); HEMOGLOBIN 14.1 g/dl (12.0-15.5); LYMPH # 0.5 10^3/uL (1.5-5.0); LYMPH % 9.3 % (24.0-44.0); MEAN CORPUSCULAR HEMOGLOBIN 32.9 pg (27.0-33.0); MEAN CORPUSCULAR HGB CONC 32.8 g/dl (32.0-36.5); MEAN CORPUSCULAR VOLUME 100.2 fl (80.0-96.0); MONO # 0.5 10^3/uL (0.0-0.8); MONO % 10.3 % (2.0-8.0); NEUTROPHILS # 3.8 10^3/uL (1.5-8.5); NEUTROPHILS % 75.4 % (36.0-66.0); PLATELET COUNT, AUTOMATED 216 10^3/uL (150-450); RED BLOOD COUNT 4.29 10^6/uL (4.00-5.40); WHITE BLOOD COUNT 5.1 10^3/uL (4.0-10.0)
[2024-03-18 11:53] LABS: HEMOGLOBIN A1c 6.6 % (4.0-6.0)
[2024-03-18 13:10] LABS: ALKALINE PHOSPHATASE 102 U/L (35-104); ALT/SGPT 32 U/L (7.0-40); AST/SGOT 26 U/L (<34); BILIRUBIN,DIRECT 0.2 MG/DL (<0.4); BILIRUBIN,TOTAL 0.5 MG/DL (0.3-1.2); BLOOD UREA NITROGEN 21 MG/DL (9-23); CALCIUM LEVEL 9.8 MG/DL (8.3-10.6); CARBON DIOXIDE LEVEL 30 MMOL/L (20-31); CHLORIDE LEVEL 106 MMOL/L (98-107); CREATININE FOR GFR 0.72 MG/DL (0.55-1.30); GLOMERULAR FILTRATION RATE > 60.0 (>39); GLUCOSE, FASTING 42 MG/DL (74-106); POTASSIUM SERUM 4.3 MMOL/L (3.5-5.1); SODIUM LEVEL 142 MMOL/L (136-145); TOTAL PROTEIN 7.1 G/DL (5.7-8.2)
[2024-03-18] MEDS ORDERED: HOLTER MONITOR XX (14:10)
[2024-03-18 14:46] VITALS: BP 115/57; TEMP 97; O2SAT 97
== END 2024-03-18 15:00 | disposition home or self-care (01) ==
LOC: M ED 10:19 → EDBD 10:19 → M ED 15:00
DX: E11.649 Type 2 diabetes mellitus with hypoglycemia without coma (principal); C82.90 Follicular lymphoma, unspecified, unspecified site; I25.10 Atherosclerotic heart disease of native coronary artery without angina pectoris; E78.5 Hyperlipidemia, unspecified; I73.9 Peripheral vascular disease, unspecified; Z92.21 Personal history of antineoplastic chemotherapy; F17.200 Nicotine dependence, unspecified, uncomplicated; Z79.01 Long term (current) use of anticoagulants; Z79.82 Long term (current) use of aspirin; Z79.4 Long term (current) use of insulin; Z79.899 Other long term (current) drug therapy; Z88.1 Allergy status to other antibiotic agents; Z88.8 Allergy status to other drugs, medicaments and biological substances

== ENCOUNTER → 2024-03-18 | Outpatient (CLI) | payer MEDICARE, MEDICAID ==
[~2024-03-18] MED LIST changes: +HOLTER MONITOR XX
== END ==
LOC: M EKG 15:18
PROVIDERS: ATTEND Emergency Medicine
DX: R00.2 Palpitations (principal)

== ENCOUNTER → 2024-05-06 | Outpatient (CLI) | payer MEDICARE, MEDICAID ==
[~2024-05-06] MED LIST changes: +HOLTER MONITOR XX
== END ==
LOC: M RAD 11:36
PROVIDERS: ATTEND Registered Nurse
DX: I65.23 Occlusion and stenosis of bilateral carotid arteries (principal)

== ENCOUNTER → 2024-07-01 | Outpatient (CLI) | payer MEDICARE, MEDICAID ==
[2024-07-01 10:49] LABS: BASO % 0.9 % (0.0-1.0); EOS # 0.2 10^3/uL (0.0-0.5); EOS % 3.9 % (0.0-3.0); HEMATOCRIT 39.1 % (36.0-47.0); LYMPH # 0.6 10^3/uL (1.5-5.0); LYMPH % 13.4 % (24.0-44.0); MEAN CORPUSCULAR HEMOGLOBIN 33.4 pg (27.0-33.0); MEAN CORPUSCULAR HGB CONC 33.2 g/dl (32.0-36.5); MEAN CORPUSCULAR VOLUME 100.5 fl (80.0-96.0); MONO # 0.6 10^3/uL (0.0-0.8); MONO % 13.2 % (2.0-8.0); NEUTROPHILS % 68.1 % (36.0-66.0); PLATELET COUNT, AUTOMATED 212 10^3/uL (150-450); RED BLOOD COUNT 3.89 10^6/uL (4.00-5.40); WHITE BLOOD COUNT 4.3 10^3/uL (4.0-10.0)
[2024-07-01 11:21] LABS: ALBUMIN 3.4 G/DL (3.2-5.2); ALKALINE PHOSPHATASE 73 U/L (35-104); ALT/SGPT 20 U/L (7.0-40); AST/SGOT 15 U/L (<34); BILIRUBIN,TOTAL 0.5 MG/DL (0.3-1.2); BLOOD UREA NITROGEN 20 MG/DL (9-23); CALCIUM LEVEL 9.5 MG/DL (8.3-10.6); CARBON DIOXIDE LEVEL 32 MMOL/L (20-31); CHLORIDE LEVEL 105 MMOL/L (98-107); CREATININE FOR GFR 0.77 MG/DL (0.55-1.30); GLOMERULAR FILTRATION RATE > 60.0 (>39); GLUCOSE, FASTING 254 MG/DL (74-106); POTASSIUM SERUM 4.4 MMOL/L (3.5-5.1); SODIUM LEVEL 140 MMOL/L (136-145); TOTAL PROTEIN 6.1 G/DL (5.7-8.2)
== END ==
LOC: M LAB 10:08
PROVIDERS: ATTEND Registered Nurse
DX: I25.10 Atherosclerotic heart disease of native coronary artery without angina pectoris (principal)

== ENCOUNTER → 2024-10-26 | Outpatient (CLI) | payer MEDICARE, MEDICAID ==
[~2024-10-26] MED LIST changes: -EQL50TAB2 PO; +VITA1TAB82 PO
== END ==
LOC: M PLAIMG 13:49
PROVIDERS: ATTEND Registered Nurse
DX: I34.0 Nonrheumatic mitral (valve) insufficiency (principal)

== ENCOUNTER → 2024-12-15 | Outpatient (CLI) | payer MEDICARE, MEDICAID ==
[~2024-12-15] MED LIST changes: +GNP250TA9 PO; +PRES1CAP PO
== END ==
LOC: M RAD 10:15
PROVIDERS: ATTEND Nurse Practitioner Family
DX: M25.511 Pain in right shoulder (principal); M25.552 Pain in left hip; M54.42 Lumbago with sciatica, left side

== ENCOUNTER → 2024-12-18 | Outpatient (REF) | payer MEDICARE, MEDICAID ==
[2024-12-18 13:02] LABS: CHOLESTEROL LEVEL 117.0 MG/DL (<200); CHOLESTEROL RISK RATIO 2.67 (<5); LDL CHOLESTEROL 61.1 MG/DL (<100); NON-HDL-C 73.3 MG/DL; TRIGLYCERIDES LEVEL 61.0 MG/DL (<150)
== END ==
LOC: M LAB REF 11:55
PROVIDERS: ATTEND Registered Nurse
DX: I25.10 Atherosclerotic heart disease of native coronary artery without angina pectoris (principal)

== ENCOUNTER → 2024-12-18 | Outpatient (REF) | payer MEDICARE, MEDICAID ==
[2024-12-18 12:58] LABS: ESTIMATED AVERAGE GLUCOSE 146.0 MG/DL (60-110)
[2024-12-18 13:09] LABS: CREATININE, URINE 97.6 MG/DL; MALB URINE SIEMENS 6.0 MG/L; MAU/CREAT RATIO 6.1 MCG/MG (0.0-30.0)
== END ==
LOC: M LAB REF 11:57
PROVIDERS: ATTEND Nurse Practitioner Family
DX: E10.649 Type 1 diabetes mellitus with hypoglycemia without coma (principal)

== ENCOUNTER → 2024-12-18 | Outpatient (REF) | payer MEDICARE, MEDICAID ==
[2024-12-18 12:58] LABS: ESTIMATED AVERAGE GLUCOSE 151.0 MG/DL (60-110)
[2024-12-18 13:09] LABS: CREATININE, URINE 97.8 MG/DL; MALB URINE SIEMENS 6.0 MG/L; MAU/CREAT RATIO 6.1 MCG/MG (0.0-30.0)
[2024-12-18 13:12] LABS: TOTAL 25(OH) VITAMIN D 57.8 NG/ML (20.0-100.0)
[2024-12-18 13:13] LABS: CHOLESTEROL LEVEL 122 MG/DL (<200); CHOLESTEROL RISK RATIO 2.68 (<5); LDL CHOLESTEROL 64.1 MG/DL (<100); NON-HDL-C 76.5 MG/DL; TRIGLYCERIDES LEVEL 62 MG/DL (<150)
[2024-12-18 13:15] LABS: FREE T4 1.19 NG/DL (0.89-1.76); VITAMIN B12 LEVEL 1612 PG/ML (211-911)
[2024-12-18 13:18] LABS: PTH INTACT 45.4 PG/ML (18.5-88.0)
== END ==
LOC: M LAB REF 11:59
PROVIDERS: ATTEND Nurse Practitioner Family
DX: E53.8 Deficiency of other specified B group vitamins (principal); E78.2 Mixed hyperlipidemia; E11.40 Type 2 diabetes mellitus with diabetic neuropathy, unspecified; E55.9 Vitamin D deficiency, unspecified

== ENCOUNTER → 2024-12-25 | Outpatient (CLI) | payer MEDICARE, MEDICAID | LOC: M WHC 12:36 | PROVIDERS: ATTEND Nurse Practitioner Family | DX: Z12.31 Encounter for screening mammogram for malignant neoplasm of breast (principal) ==

== ENCOUNTER → 2024-12-30 | Outpatient (CLI) | payer MEDICARE, MEDICAID | LOC: M PLAIMG 10:34 | PROVIDERS: ATTEND Nurse Practitioner Family | DX: M47.22 Other spondylosis with radiculopathy, cervical region (principal) ==